=== PATIENT | female | born 1940 | race Caucasian/White ===

== ENCOUNTER 2020-07-11 18:47 | Observation (INO) | payer MEDICARE, SELFPAY ==
[2020-07-11 18:48] VITALS: BP 159/72; PULSE 56; RESP 16; TEMP 36.7; O2SAT 96; BMI 42.1
[2020-07-11 19:03] VITALS: BP 129/60; PULSE 61; RESP 18; O2SAT 93
--- NOTE | 2020-07-11 19:05 | ED.VIS.GEN ---
History of Present Illness Chief Complaint: Edema Narrative: 79-year-old female with history of NC, CHF, CABG reporting worsening leg pain and swelling. She reports that she is unable to ambulate. She states that she noted the symptoms coming on. She is on Lasix 20 mg twice daily and has been taking this normally. He is not having chest pain, palpitations, shortness of breath. She states that her current concern is that she may fall due to her leg pain and leg heaviness. She usually ambulates with a cane and cannot even do this now. She called EMS tonight because she could not get to the hospital. - Past Medical History (1) Difficulty walking Status: Acute Past Medical History - Allergies and Home Meds Allergies/Adverse Reactions: Allergies No Known Allergies Allergy (Verified 07/11/20 18:53) Past Medical History: - - NC, CHF, hypertension Surgical History: - - Four-vessel CABG Lives: Alone Smoking Status: Former smoker Alcohol: None Drugs: None - Family History Maternal Family History: Reports: - - Aneurysms Paternal Family History: Reports: Heart Disease Review of Systems General: Denies: Chills, Fever Eyes: Denies: Visual changes - bilaterally, Diplopia ENT: Denies: Rhinorrhea, Sore throat Cardiovascular: Denies: Chest pain, Palpitations Respiratory: Denies: Dyspnea, Cough, Dyspnea on exertion Genitourinary: Denies: Dysuria, Hematuria, Frequency Musculoskeletal: Reports: Extremity Pain - Lateral lower extremity pain, weakness, swelling Skin: Denies: Rash, Abscess Neurological: Denies: Headache Physical Exam Vital Signs/Narrative: Vital Signs Temp Pulse Resp BP Pulse Ox 07/11/20 19:03 61 18 129/60 H 93 07/11/20 18:48 98.0 F 56 L 16 159/72 H 96 Inital Vital Signs reviewed: Yes General: Obese, No Acute Distress Head: Normocephalic, Atraumatic Eyes: Perrl, EOMI ENT: Moist mucous membranes Cardiovascular: Regular rate, Regular rhythm Respiratory: No distress, CTA bilaterally Abdomen: Soft, Nontender, Nondistended Back: Nontender Extremities: Edema - Lateral lower extremity edema. Negative for: Calf Tenderness Skin: - - Bilateral lower extremity stasis changes Neurological: Alert, Oriented x3 Psychological: Normal affect Diagnostic/Tx/Re-eval - Rhythm Strip Rhythm Strip: Sinus Rhythm Rate: 61 - EKG Initial EKG Interpretation: Sinus Rhythm, Non-Specific ST Changes - Medical Decision Making Patient evaluated for leg swelling and difficulty ambulating. Ultimately her EKG is sinus rhythm without signs of ischemia. Her chest x-ray is negative for heart failure. Her BNP is elevated at 300. She does have lower extremity edema other signs of congestive heart failure. Troponin is negative. Her BUN/creatinine was elevated so she is actually more dry than wet. Given this I do not believe she is in florid heart failure. I did look into [facility] found that she was recently admitted for similar symptoms on overnight. She has a known ejection fraction of 40%. It is unclear whether did an echocardiogram. Patient initially did not admit to this when I saw her. She states she had not been admitted in 18 years. Although I do not believe the patient is in heart failure given her inability to ambulate due to pain and weakness I did speak with the hospitalist who was amenable to observing her overnight and getting her linked up with a new physician and literary writer as she does not have one currently. She was amenable to this plan. Impression: 1. Lower extremity swelling 2. History of CHF 3. Inability to ambulate ED Disposition - Plan for ED Patient: Disposition: Acute Care Hospital [facility]
--- NOTE | 2020-07-11 19:39 | RAD_ITS ---
STUDY: X-RAY CHEST REASON FOR EXAM: Female, 79 years old. Chest pain. TECHNIQUE: Single AP portable view of the chest. COMPARISON: None. FINDINGS: There are chronic appearing bibasilar interstitial fibrotic changes of the lungs. There is no demonstrated pleural abnormality. No visualized focal consolidation. Sternal cerclage wires and vascular clips are present from a prior sternotomy and coronary artery bypass graft procedure (CABG). The heart is mildly enlarged. There is a healed fracture deformity of the right humeral head neck junction. RAD/Chest 1 View (Portable) IMPRESSION: Bibasilar fibrotic changes and mild cardiomegaly Electronically Signed: Adin Haley MD at 20:23 EDT , Service support ,
--- NOTE | 2020-07-11 19:39 | EKG12_ITS ---
Test Reason : GEN ILL Blood Pressure : / mmHG Vent. Rate : 061 BPM Atrial Rate : 061 BPM P-R Int : 172 ms QRS Dur : 080 ms QT Int : 404 ms P-R-T Axes : 047 022 -79 degrees QTc Int : 406 ms Sinus rhythm with marked sinus arrhythmia Nonspecific ST and T wave abnormality Abnormal ECG Confirmed by NOEL HATCH, SACHA ([id number]), communications editor LAW VANEGAS ([id number]) on 07/12/2020 9:25:02 AM Referred By: Hay Leavitt Confirmed By:SACHA COHEN MD
[2020-07-11 19:57] LABS: Basophil# 0.05 X10^3/uL; Basophil% 0.6 % (0-1); Eosinophil# 0.76 X10^3/uL; Eosinophils% 8.5 % (0-5); Hematocrit 38.6 % (37-47); Hemoglobin 11.6 g/dL (12.0-15.0); Lymphocyte % 21.3 % (19-41); Mean Corp Hgb Conc 30.1 g/dL (32-36); Mean Corpuscular Hgb 29.2 pg (27.0-32.0); Mean Corpuscular Volume 97.2 fL (81-99); Mean Platelet Vol. 10.5 fl (6.2-12.0); Monocyte# 1.15 X10^3/uL; Monocyte% 12.9 % (0-10); NRBC Flagged by Analyzer 0 % (0-5); Neutrophil # 4.99 X10^3/uL (2.7-7.7); Platelet Count 282 K/mm3 (150-450); RBC Distribution Width CV 14.6 % (11.6-14.6); RBC Distribution Width SD 52.6 fl (35.1-43.9); Red Blood Count 3.97 M/mm3 (4.2-5.4); White Blood Count 8.9 K/mm3 (4.4-11.0)
[2020-07-11 20:16] LABS: Anion Gap 3 (5-15); BUN 40 mg/dL (7-18); BUN/Creat Ratio 39.2 RATIO (10-20); Calcium,Total 9.7 mg/dL (8.5-10.1); Chloride 109 mmol/L (98-107); Creatinine, Serum 1.02 mg/dL (0.55-1.02); EST Glomerular Filtration Rate 56 mL/min (>60); Est Glom Filt Rate - Afr Amer 67 mL/min (>60); Estimated Creatinine Clearance 43.49 ml/min; Glucose 95 mg/dL (74-106); Sodium Level 145 mmol/L (136-145)
[2020-07-11 20:23] LABS: BNP,B-Type NATRIURETIC PEPTIDE 318.8 pg/mL (0-100)
[2020-07-11 21:05] VITALS: PULSE 69; RESP 20; O2SAT 95
--- NOTE | 2020-07-11 22:23 | PCM.HP.STD ---
Problem List (1) Difficulty walking Status: Acute History of Present Illness Date of Admission: 07/11/20 Chief Complaint: difficulty walking The patient is a 79 year old F with a significant history of NH status post CABG; and systolic heart failure who presents to the emergency department with 5-day history of difficulty in ambulation. Associated with her symptoms is numbness of bilateral legs. She was admitted 4 days ago at [facility] for diagnosis of acute on chronic systolic heart failure. Patient was placed on Lasix drip. Reportedly she spent 2 days at [facility]. She reports minimal physical therapy at [facility]. Reportedly after hospitalization at [facility] she still unable to ambulate. Past Medical History Medical History: Medical History (Last Reviewed 07/12/20 @ 00:[address] Hay Leavitt MD) CHF (congestive heart failure) I50.9 Myocardial infarct I21.9 Allergies No Known Allergies Allergy (Verified 07/11/20 18:53) Home Medications: Ambulatory Orders Medication Instructions Recorded Acetaminophen [Tylenol Extra 500 - 1,000 mg PO Q6H PRN PRN 07/11/20 Strength] Aspirin, Baby 81 mg PO DAILY 07/11/20 Carvedilol [Coreg] 12.5 mg PO BID 07/11/20 Doxycycline 100 mg PO BID 07/11/20 Isosorbide Dinitrate 30 mg PO BID 07/11/20 Lisinopril [Zestril] 5 mg PO DAILY 07/11/20 Multivit-Min/Iron/Folic Acid/K 1 ea PO DAILY 07/11/20 [One Daily Women's Multivitamin] Atco-3 Fatty Acids/Fish Oil [Fish 1 ea PO QODAY 07/11/20 Oil 1,000 mg Capsule] Rosuvastatin Calcium 20 mg PO QHS 07/11/20 Surgical History: coronary bypass surgery Smoking Status: Former smoker Alcohol: None - *Family History Maternal History Items: - - Aneurysms Paternal History Items: Heart Disease Review of Systems Constitutional: Denies: Chills, Fever, Weight Change HEENT: Denies: Head Aches, Sinus Congestion, Sinus Drainage Cardiovascular: Denies: Chest Pain, Palpitations Respiratory: Denies: Cough, Shortness of breath at rest, Sputum production Gastrointestinal: Denies: Abdominal Pain, Nausea, Vomiting Genitourinary: Denies: Dysuria Musculoskeletal: Denies: Joint Pain, Joint Tenderness Skin: Denies: Rash, Wounds Neurological: Reports: Numbness. Denies: Focal weakness, Tingling Psychiatric: Denies: Anxiety, Depression, Homicidal Ideations, Suicidal Ideations Hematologic/ Lymphatic: Denies: Easy Bruising, Easy Bleeding VTE Information - Inpt Only VTE Present on Admission: No VTE Mechan Device Prophylaxis: None VTE Pharm Prophylaxis ordered?: Yes Patient Problems: Active and Suspected Problems (Last Updated 07/11/20 @ 23:[address] Hay Leavitt MD) Difficulty walking (Acute) - Physical Exam Vitals/I&O's: Vital Signs Temp Pulse Resp BP Pulse Ox 98.0 F 69 20 H 129/60 H 95 07/11/20 18:48 07/11/20 21:05 07/11/20 21:05 07/11/20 19:03 07/11/20 21:05 Oxygen Delivery Method Room Air Weight: 122 kg Body Mass Index (BMI) 42.1 General: Alert, Oriented x3, Cooperative HEENT: Atraumatic, PERRLA, EOMI, Normocephalic Neck: Supple, Trachea Midline Lungs: Clear to auscultation, Normal air movement Cardiovascular: Regular rate, Regular Rhythm, Normal S1, Normal S2, No murmurs Abdomen: Bowel Sounds Present, Soft, Non Tender Extremities: No clubbing, No cyanosis Skin: - - Hyperemia bilateral legs; desquamation of left leg. Musculoskeletal: No Tenderness to Palpation of Joints or Extremities Neurological: Cranial nerves II-XII grossly intact Psych/Mental Status: Normal Affect, Appropriate Laboratory Results 07/11/20 19:43: WBC 8.9, RBC 3.97 L, Hgb 11.6 L, Hct 38.6, MCV 97.2, MCH 29.2, MCHC 30.1 L, RDW Std Deviation 52.6 H, RDW Coeff of Estuardo 14.6, Plt Count 282, MPV 10.5, Immature Gran % (Auto) 0.700, Neut % (Auto) 56.0, Lymph % (Auto) 21.3, [place] % (Auto) 12.9 H, Eos % (Auto) 8.5 H, Baso % (Auto) 0.6, Absolute Neuts (auto) 5.0, Absolute Lymphs (auto) 1.90, Nucleated RBC % 0 07/11/20 19:43: Sodium 145, Potassium 5.0, Chloride 109 H, Carbon Dioxide 33.0 H, Anion Gap 3 L, BUN 40 H, Creatinine 1.02, Estim Creat Clear Calc 43.49, Est GFR (MDRD) Af Amer 67, Est GFR (MDRD) Non-Af 56 L, BUN/Creatinine Ratio 39.2 H, Glucose 95, Calcium 9.7, Troponin I < 0.015 07/11/20 19:43: B-Natriuretic Peptide 318.8 H Assessment/Plan All Active Problems (Last Updated 07/11/20 @ 23:[address] Hay Leavitt MD) Difficulty walking (Acute) The patient is a 79 year old F with a significant history of NH status post CABG; and systolic heart failure who presents to the emergency department with 5-day history of difficulty in ambulation. Difficulty walking Etiology is unclear at this point. Will get ultrasound of bilateral lower extremities. Will check vitamin B12 and vitamin D Physical therapy and occupational therapy to work with patient. Congestive heart failure From review of records at [facility] patient last ejection fraction was 35 to 45% On home Coreg and lisinopril continued. CAD status post CABG Aspirin continued Dehydration Creatinine on 07/08/2020 at [facility] was 1.22; BUN was 24. On this presentation her creatinine is 1.02. BUN is 40. Reportedly she has been taking Lasix at home. And at [facility] patient was on Lasix drip. Hold Lasix at this time. Repeat BMP in am. Consider gentle IVF if patient does not improve. History of cellulitis Reportedly she was prescribed doxycycline for 4 weeks for left leg cellulitis. And she has 2 more weeks to complete doxycycline. Patient with hyperemia of bilateral lower extremities and desquamation of left leg; likely venous stasis. Clinical course of her left leg is unclear at this time. Will continue her home doxycycline as ordered Hypertensive On presentation blood pressure was not within goal Coreg, lisinopril and isosorbide dinitrate continued Trend blood pressure and adjust blood pressure medications. DVT prophylaxis Subcutaneous heparin. OBSV E&M: [id number] Initial observation care L3
[2020-07-11 23:02] VITALS: BP 160/67; PULSE 73; RESP 16; TEMP 36.2; O2SAT 95
[2020-07-11 23:40] VITALS: PULSE 73
--- NOTE | 2020-07-11 23:41 | VDLE_ITS ---
Reason For Study: Swelling RIGHT LEFT GSV is normal. GSV is normal. CFV is compressible, spontaneous, phasic, CFV is compressible, spontaneous, phasic, competent and demonstrates normal competent, and demonstrates normal augmentation. augmentation. FV is compressible, spontaneous, phasic, FV is compressible, spontaneous, phasic, competent and demonstrates normal competent and demonstrates normal augmentation. augmentation. POP V is compressible, spontaneous, phasic, POP V is compressible, spontaneous, phasic, competent and demonstrates normal competent and demonstrates normal augmentation. augmentation. T/P Trunk is compressible. T/P Trunk is compressible. PTV is compressible. PTV is compressible. RT PerV is compressible. LT PerV is compressible. Procedure Exam performed portable in patient room. A preliminary report was called and/or faxed to [facility]. Interpretation Summary No evidence for acute deep venous thrombosis bilateral lower extremities with patent and compressible bilateral great saphenous veins. Ordering Physician: Hay Leavitt Referring Physician: Iban Starr Performed By: Leonila Lopez RVT
[2020-07-11 23:51] VITALS: BMI 41.1
[2020-07-12] VITALS (9 sets, daily range): BP systolic 114–145; BP diastolic 38–56; PULSE 62–71; RESP 16–24; TEMP 36.5–36.8; O2SAT 93–97
[2020-07-12] MEDS: Carvedilol 12.5 MG Tablet PO ×3 (00:21→21:45)
[2020-07-12] MEDS: Doxycycline 100 MG CAPSULE PO ×3 (00:21→21:44)
[2020-07-12] MEDS: Isosorbide DN 30 MG Tablet PO ×3 (00:22→21:45)
[2020-07-12] MEDS: Heparin Injection (Vial) 5,000 UNIT/ML VIAL 5000 UNIT SC ×3 (00:22→21:46)
[2020-07-12 00:47] LABS: Vitamin B12 505 pg/mL (211-911); Vitamin D,25 Hydroxy 36.3 ng/mL
[2020-07-12 06:39] LABS: Anion Gap 2 (5-15); BUN 35 mg/dL (7-18); BUN/Creat Ratio 37.2 RATIO (10-20); Calcium,Total 8.7 mg/dL (8.5-10.1); Chloride 108 mmol/L (98-107); Creatinine, Serum 0.94 mg/dL (0.55-1.02); EST Glomerular Filtration Rate 61 mL/min (>60); Est Glom Filt Rate - Afr Amer 74 mL/min (>60); Estimated Creatinine Clearance 47.19 ml/min; Glucose 111 mg/dL (74-106); Potassium 4.4 mmol/L (3.5-5.1); Sodium Level 144 mmol/L (136-145)
--- NOTE | 2020-07-12 08:20 | NURSING ---
Was asked by nursing to assess bilateral lower legs. there is moderate edema noted and some dry skin noted to the left lateral lower leg. no open areas noted. washed legs and feet with soap and water. pat dry. was able to remove most of the dry skin. applied aloe vesta and applied CHRIS wraps from the base of the toes to just below the knees. pt tolerated well.
[2020-07-12] MEDS: Aspirin E.C. 81 MG Tablet PO (08:58)
[2020-07-12] MEDS: Lisinopril 5 MG Tablet PO (08:58)
[2020-07-12] MEDS: Multivitamins,Ther W-Minerals Tablet 1 TABLET PO (09:00)
--- NOTE | 2020-07-12 11:58 | CASEMGMT ---
Addendum entered by Leonila Cota 07/12/20 13:45: SW received message from Guera at [employer] stating pt's daughter works at [employer] and wants pt to go there at discharge. SW placed a call to Guera and updated Gurea that pt has [facility] Medicare and Jean Paul didn't show up on [facility] Medicare's website. Guera states she will talk to business office and then give this worker a call back. Addendum entered by Leonila Cota 07/12/20 12:05: SW did place a call to [facility] in [facility], no beds are available at this time. SW did update pt of this. Original Note: Social Work Assessment Referral Date: 07/12/2020 Date of Assessment: 07/12/2020 Reason for consult: Possible SNF Informant: PT/OT GIANNI updated by PT that pt is assist of two, recommendation is SNF. SW in to speak with pt to complete assessment. SW introduced self and role at [facility]. Pt is alert and orientated x3. Pt states that her daughter lives with her in a two story home with first floor set up. PT states she has no steps to enter as she utilizes the back entrance. Pt states she was previously independent with ADLS, states she still drives. DME include wheelchair, 2 walkers and a cane. PCP is Iban Strar and Pharmacy is [facility]. Substance Abuse Hx: Pt denied Mental Health Hx: Pt denied HHC: None SNF: None SW spoke with pt regarding SNF as PT/OT are recommending SNF. SW provided pt with list of SNF that accept pt's insurance. Pt states she will need to speak with her daughter regarding discharge. Pt states her daughter works today so she will be calling her. SW informed pt that this worker will come back later today to continue discussion of discharge plans. Pt states understanding. Plan: TBD Leonila Cota SHEET METAL DUCT INSTALLER APPRENTICE, AIRLINE TRANSPORT PILOT
--- NOTE | 2020-07-12 12:38 | CHAPLAIN ---
Type of Pastoral Visit _x__ Initial Visit ___ Follow-up Visit ___ On-call Visit ___ General Patient Visit ___ Spiritual Assessment ___ Family Conference ___ Bereavement ___ Rapid Response ___ Code Blue ___ Other (describe below) Pastoral Care Referral From _x__ Patient ___ Family ___ Nurse ___ Physician ___ Tack Maker ___ Electrocardiograph Technician ___ Other (describe below) Sacrament/Intervention _x__ Active listening ___ Anointing ___ Anabaptism ___ Bereavement ___ Communion _x__ Gwen exploration ___ ___ Life review _x__ Prayer ___ Reconciliation ___ Sacrament of Sick _x__ Supportive presence ___ Wedding ___ Other (describe below) Pastoral Comments
--- NOTE | 2020-07-12 14:21 | PCM.PN.HOSP ---
Patient Problems: Active and Suspected Problems (Last Reviewed 07/12/20 @ 00:[address] Hay Leavitt MD) Difficulty walking (Acute) Reason for Visit: debility Subjective: Still with lower extremity edema. Has gradually put on weight over years. Vitals/I&O's: Vital Signs Temp Pulse Resp BP Pulse Ox 36.6 C 62 18 132/40 H 93 07/12/20 13:37 07/12/20 13:37 07/12/20 13:37 07/12/20 13:37 07/12/20 13:37 Oxygen Flow Rate (L/min) 1 Oxygen Delivery Method Room Air Weight: 119.2 kg Body Mass Index (BMI) 41.1 Intake and Output for Last 24 Hours 07/10/20 07/11/20 07/12/20 23:59 23:59 23:59 Intake Total 450 / 450 Output Total 100 / 100 Balance 350 / 350 General: Alert, No apparent distress HEENT: Atraumatic, Normocephalic Oral: Moist Mucosa, No Gingival or Mucosal Lesions/ Ulcerations Neck: No Nodes, Thyroid Normal Size and Texture Lungs: Clear to auscultation, Normal air movement, No rhonchi, No wheeze Cardiovascular: Regular rate, Regular Rhythm, Normal S1, Normal S2, No murmurs Abdomen: Bowel Sounds Present, Soft, Non Tender, Non-Distended, No Hepato-splenomegaly Laboratory Results 07/11/20 19:43: WBC 8.9, RBC 3.97 L, Hgb 11.6 L, Hct 38.6, MCV 97.2, MCH 29.2, MCHC 30.1 L, RDW Std Deviation 52.6 H, RDW Coeff of Estuardo 14.6, Plt Count 282, MPV 10.5, Immature Gran % (Auto) 0.700, Neut % (Auto) 56.0, Lymph % (Auto) 21.3, [place] % (Auto) 12.9 H, Eos % (Auto) 8.5 H, Baso % (Auto) 0.6, Absolute Neuts (auto) 5.0, Absolute Lymphs (auto) 1.90, Nucleated RBC % 0 07/11/20 19:43: Sodium 145, Potassium 5.0, Chloride 109 H, Carbon Dioxide 33.0 H, Anion Gap 3 L, BUN 40 H, Creatinine 1.02, Estim Creat Clear Calc 43.49, Est GFR (MDRD) Af Amer 67, Est GFR (MDRD) Non-Af 56 L, BUN/Creatinine Ratio 39.2 H, Glucose 95, Calcium 9.7, Troponin I < 0.015 07/11/20 19:43: B-Natriuretic Peptide 318.8 H 07/11/20 19:43: Vitamin B12 505, Vitamin D 25-Hydroxy 36.3 07/12/20 05:44: Sodium 144, Potassium 4.4, Chloride 108 H, Carbon Dioxide 34.0 H, Anion Gap 2 L, BUN 35 H, Creatinine 0.94, Estim Creat Clear Calc 47.19, Est GFR (MDRD) Af Amer 74, Est GFR (MDRD) Non-Af 61, BUN/Creatinine Ratio 37.2 H, Glucose 111 H, Calcium 8.7 Current Medications Acetaminophen (Tylenol) 650 mg PO Q6H PRN PRN PRN Reason: Pain Score 1-10/Temp > 100.7 F Aspirin (Ecotrin) 81 mg PO DAILY@0800 [facility] Last Admin: 07/12/20 08:58 Dose: 81 mg Documented by: Atorvastatin Calcium (Lipitor) 40 mg PO QHS [facility] Carvedilol (Coreg) 12.5 mg PO BID [facility] Last Admin: 07/12/20 10:57 Dose: 12.5 mg Documented by: Doxycycline Monohydrate (Doxycycline) 100 mg PO BID [facility] Last Admin: 07/12/20 10:57 Dose: 100 mg Documented by: Ergocalciferol (Vitamin D) 50,000 unit PO Q7D@1000 [facility] Stop: 08/30/20 10:01 Last Admin: 07/12/20 10:57 Dose: 50,000 unit Documented by: Heparin Sodium (Porcine) (Heparin Na) 5,000 unit SC Q12 [facility] Last Admin: 07/12/20 10:57 Dose: 5,000 unit Documented by: Hydralazine HCl (Apresoline Iv) 5 mg IV Q4H PRN PRN PRN Reason: SBP > 160 Isosorbide Dinitrate (Isordil) 30 mg PO BID [facility] Last Admin: 07/12/20 13:33 Dose: 30 mg Documented by: Lisinopril (Zestril) 5 mg PO DAILY [facility] Last Admin: 07/12/20 08:58 Dose: 5 mg Documented by: Multivitamins/Minerals (Multivitamin With Minerals (Bkc)) 1 tablet PO DAILY@0800 [facility] Last Admin: 07/12/20 09:00 Dose: 1 tablet Documented by: Ondansetron HCl (Zofran) 4 mg IV Q8H PRN PRN PRN Reason: NAUSEA/VOMITING Sodium Chloride () 10 - 40 ml IV UD PRN PRN Reason: SALINE FLUSH STROKE Vital Signs/Narrative: Vital Signs Temp Pulse Resp BP Pulse Ox 07/12/20 13:37 36.6 C 62 18 132/40 H 93 Medical Necessity - Tobacco Use Smoking Status: Former smoker Tobacco Use: Cigarettes Assessment/Plan All Active Problems (Last Reviewed 07/12/20 @ 00:[address] Hay Leavitt MD) Difficulty walking (Acute) 1. debility PT OT eval and treat SNF recommended 2. LE edema add furosemide 3. VTE prophylaxis: SQ heparin OBSV E&M: 11106 Initial observation care L2
--- NOTE | 2020-07-12 15:24 | CASEMGMT ---
Social Work Note SW received call from Guera at [employer] stating [facility] to fax referral [facility]. SW in to speak with pt. Pt confirms that her daughter works at [employer] and is agreeable to referral being sent. GIANNI informed pt that [facility] is not in network with pt's insurance but [facility] is trying a one time contract but can't guarantee that the one time contract will get approved. Pt still agreeable to referral being sent to [facility]. GIANNI faxed referral to Guera at [facility]. Plan: [facility] pending acceptance and once time contract Leonila Cota BUDGET DIRECTOR, MARKET RESEARCH ASSISTANT
[2020-07-12] MEDS: Furosemide 40 MG Tablet PO (15:57)
[2020-07-12] MEDS: Bisacodyl 5 MG Tablet PO (18:04)
[2020-07-12 20:59] LABS: Probe Check PASS; Specimen Processing Control PASS
[2020-07-12] MEDS: Atorvastatin Calcium 40 MG Tablet PO (21:45)
[2020-07-13 03:43] VITALS: BP 132/61; PULSE 61; RESP 18; TEMP 36.5; O2SAT 92
[2020-07-13 03:56] VITALS: RESP 18; O2SAT 92
[2020-07-13 08:14] VITALS: BP 143/53; PULSE 64; RESP 18; TEMP 36.5; O2SAT 95
[2020-07-13] MEDS: Multivitamins,Ther W-Minerals Tablet 1 TABLET PO (08:16)
[2020-07-13] MEDS: Aspirin E.C. 81 MG Tablet PO (08:16)
--- NOTE | 2020-07-13 09:45 | CASEMGMT ---
EDY CM in to discuss PERRY form with patient. PERRY for explained to patient. Patient voiced understanding and signed form. Original filed in chart, copy of signed PERRY form provided to patient. Patient had no further questions or concerns.
--- NOTE | 2020-07-13 09:56 | CASEMGMT ---
Addendum entered by Leonila Cota 07/13/20 15:19: GIANNI received call from [facility] at [facility] stating [facility] is still saying they will not approve a one time contract for [facility]. Addendum entered by Leonila Cota 07/13/20 15:08: GIANNI received message from Guera at [facility] stating their it network administrator is calling [facility] again to inquire about a one time contract. Guera to call this worker back. Addendum entered by Leonila Cota 07/13/20 14:41: GIANNI received [facility] from [facility] SW in to speak with pt. SW updated pt that [facility] will not do One Time Contract with [facility] so pt will need to pick a New SNF. GIANNI explained the only SNF in [place] that will take pt's insurance is [facility] and then the other facilities are in [place]. Pt stated I am not going to [place]. GIANNI explained then if she wants to stay in [facility] then the only other option is [facility]. Pt agreeable to referral being sent to [facility]. GIANNI placed a call to [facility] and spoke with Ines in admissions. GIANNI provided referral. GIANNI also placed a call to [facility] in [facility]. [facility] confirm no beds until Saturday. Plan: SNF pending acceptance and pre-cert. Addendum entered by Leonila Cota 07/13/20 13:21: GIANNI received call from Guera at [facility] stating pre-cert/One time contract is still pending. Guera states she did reach out to [facility] and asked for request to be expedited as pt is medically ready for discharge. Guera to call this worker back once decision has been made for pre-cert/one time contract. Original Note: Social Work Note GIANNI placed a call to Guera at [facility] and left message inquiring about one time contract with [facility]. GIANNI informed Guera that pt is medically ready for discharge once pre-cert/one time contract is obtained. GIANNI waiting for call back. Plan: [facility] pending pre-cert/one time contract Leonila Cota CLAIM CLINICIAN, VET[employer]IAN [employer]IMAL CARE
[2020-07-13] MEDS: Doxycycline 100 MG CAPSULE PO ×2 (10:03→22:26)
[2020-07-13] MEDS: Menthol/Lanolin/Calamine/Znox 113 GM Tube 1 APPLIC TOPICAL ×2 (10:03→22:25)
[2020-07-13] MEDS: Furosemide 40 MG Tablet PO (10:04)
[2020-07-13] MEDS: Heparin Injection (Vial) 5,000 UNIT/ML VIAL 5000 UNIT SC ×2 (10:04→22:27)
[2020-07-13] MEDS: Carvedilol 12.5 MG Tablet PO ×2 (10:04→22:27)
[2020-07-13] MEDS: Isosorbide DN 30 MG Tablet PO ×2 (10:04→22:26)
[2020-07-13] MEDS: Nystatin Ointment 1 APPLIC TOPICAL ×2 (10:05→22:26)
[2020-07-13] MEDS: Lisinopril 5 MG Tablet PO (10:05)
[2020-07-13 12:56] VITALS: BP 101/47; PULSE 58; RESP 18; TEMP 36.4; O2SAT 94
[2020-07-13] MEDS: Acetaminophen 325 MG Tablet 650 MG PO ×2 (13:00→22:31)
--- NOTE | 2020-07-13 14:08 | PN_ITS ---
Patient Problems: Active and Suspected Problems (Last Reviewed 07/12/20 @ 00:[address] Hay Leavitt MD) Difficulty walking (Acute) Subjective: Had a BM yesterday and abdomen feels better. Vitals/I&O's: Vital Signs Temp Pulse Resp BP Pulse Ox 36.4 C L 58 L 18 101/47 L 94 07/13/20 12:56 07/13/20 12:56 07/13/20 12:56 07/13/20 12:56 07/13/20 12:56 Oxygen Flow Rate (L/min) 1 Oxygen Delivery Method Room Air Weight: 118.6 kg Body Mass Index (BMI) 41.1 Intake and Output for Last 24 Hours 07/11/20 07/12/20 07/13/20 23:59 23:59 23:59 Intake Total 900 / 1300 1250 / 1250 Output Total 550 / 850 300 / 300 Balance 350 / 450 950 / 950 General: Alert, No apparent distress HEENT: Atraumatic, Normocephalic Neck: No Nodes, Thyroid Normal Size and Texture Lungs: Clear to auscultation, Normal air movement, No rhonchi Cardiovascular: Regular rate, Regular Rhythm, Normal S1, Normal S2, No murmurs Abdomen: Bowel Sounds Present, Soft, Non Tender, Non-Distended, No Hepato- splenomegaly Extremities: No Calf Tenderness, Edema Skin: No rashes, No breakdown Laboratory Results 07/12/20 19:40: COVID-19 (ESTEFANIA) Negative Current Medications Acetaminophen (Tylenol) 650 mg PO Q6H PRN PRN PRN Reason: Pain Score 1-10/Temp > 100.7 F Last Admin: 07/13/20 13:00 Dose: 650 mg Documented by: Aspirin (Ecotrin) 81 mg PO DAILY@0800 [facility] Last Admin: 07/13/20 08:16 Dose: 81 mg Documented by: Atorvastatin Calcium (Lipitor) 40 mg PO QHS [facility] Last Admin: 07/12/20 21:45 Dose: 40 mg Documented by: Bisacodyl (Dulcolax) 5 mg PO DAILY PRN PRN Reason: Constipation Last Admin: 07/12/20 18:04 Dose: 5 mg Documented by: Calamine/Phenol (Calmoseptine Ointment) 1 applic TOPICAL BID [facility]; Protocol Last Admin: 07/13/20 10:03 Dose: 1 applicatio Documented by: Carvedilol (Coreg) 12.5 mg PO BID [facility] Last Admin: 07/13/20 10:04 Dose: 12.5 mg Documented by: Doxycycline Monohydrate (Doxycycline) 100 mg PO BID [facility] Last Admin: 07/13/20 10:03 Dose: 100 mg Documented by: Ergocalciferol (Vitamin D) 50,000 unit PO Q7D@1000 [facility] Stop: 08/30/20 10:01 Last Admin: 07/12/20 10:57 Dose: 50,000 unit Documented by: Furosemide (Lasix) 40 mg PO DAILY [facility] Last Admin: 07/13/20 10:04 Dose: 40 mg Documented by: Heparin Sodium (Porcine) (Heparin Na) 5,000 unit SC Q12 [facility] Last Admin: 07/13/20 10:04 Dose: 5,000 unit Documented by: Hydralazine HCl (Apresoline Iv) 5 mg IV Q4H PRN PRN PRN Reason: SBP > 160 Isosorbide Dinitrate (Isordil) 30 mg PO BID [facility] Last Admin: 07/13/20 10:04 Dose: 30 mg Documented by: Lisinopril (Zestril) 5 mg PO DAILY [facility] Last Admin: 07/13/20 10:05 Dose: 5 mg Documented by: Multivitamins/Minerals (Multivitamin With Minerals (Bkc)) 1 tablet PO DAILY@0800 [facility] Last Admin: 07/13/20 08:16 Dose: 1 tablet Documented by: Nystatin (Mycostatin) 1 applic TOPICAL BID [facility]; Protocol Last Admin: 07/13/20 10:05 Dose: 1 applicatio Documented by: Ondansetron HCl (Zofran) 4 mg IV Q8H PRN PRN PRN Reason: NAUSEA/VOMITING Sodium Chloride () 10 - 40 ml IV UD PRN PRN Reason: SALINE FLUSH STROKE Vital Signs/Narrative: Vital Signs Temp Pulse Resp BP Pulse Ox 07/13/20 12:56 36.4 C L 58 L 18 101/47 L 94 Medical Necessity - Tobacco Use Smoking Status: Former smoker Tobacco Use: Cigarettes Assessment/Plan All Active Problems (Last Reviewed 07/12/20 @ 00:[address] Hay Leavitt MD) Difficulty walking (Acute) 1. debility * PT OT eval and treat * SNF recommended * awaiting on precertification. 2. LE edema * add furosemide 3. VTE prophylaxis: SQ heparin Inpatient E&M: 28983 Subs Hosp L2
[2020-07-13 17:45] VITALS: BP 125/44; PULSE 66; RESP 18; TEMP 36.7; O2SAT 94
[2020-07-13 20:12] VITALS: BP 142/58; PULSE 64; RESP 17; TEMP 36.6; O2SAT 94
[2020-07-13] MEDS: Atorvastatin Calcium 40 MG Tablet PO (22:26)
[2020-07-14 02:38] VITALS: BP 119/62; PULSE 72; RESP 18; TEMP 36.6; O2SAT 94
--- NOTE | 2020-07-14 08:39 | PCM.PN.HOSP ---
Patient Problems: Active and Suspected Problems (Last Reviewed 07/12/20 @ 00:[address] Hay Leavitt MD) Difficulty walking (Acute) Reason for Visit: debility Subjective: Still with pain and swelling legs. Unable to go to [place] for rehab. Vitals/I&O's: Vital Signs Temp Pulse Resp BP Pulse Ox 36.6 C 72 18 119/62 94 07/14/20 02:38 07/14/20 02:38 07/14/20 02:38 07/14/20 02:38 07/14/20 02:38 Oxygen Flow Rate (L/min) 1 Oxygen Delivery Method Room Air Weight: 119.3 kg Body Mass Index (BMI) 41.1 Intake and Output for Last 24 Hours 07/12/20 07/13/20 07/14/20 23:59 23:59 23:59 Intake Total 900 / 1300 1775 / 1775 300 / 300 Output Total 550 / 850 300 / 300 Balance 350 / 450 1475 / 1475 300 / 300 General: Alert, No apparent distress HEENT: Atraumatic, Normocephalic Oral: Moist Mucosa, No Gingival or Mucosal Lesions/ Ulcerations Neck: No Nodes, Thyroid Normal Size and Texture Lungs: Clear to auscultation, Normal air movement, No rhonchi, No wheeze, No rales Cardiovascular: Regular rate, Regular Rhythm, Normal S1, Normal S2, No murmurs Abdomen: Bowel Sounds Present, Soft, Non Tender, Non-Distended, No Hepato-splenomegaly Extremities: No Calf Tenderness, Edema - improving Skin: - - wrinkling of skin in feet. CHRIS wraps on LE--did not remove. Current Medications Acetaminophen (Tylenol) 650 mg PO Q6H PRN PRN PRN Reason: Pain Score 1-10/Temp > 100.7 F Last Admin: 07/13/20 22:31 Dose: 650 mg Documented by: Aspirin (Ecotrin) 81 mg PO DAILY@0800 [facility] Last Admin: 07/13/20 08:16 Dose: 81 mg Documented by: Atorvastatin Calcium (Lipitor) 40 mg PO QHS [facility] Last Admin: 07/13/20 22:26 Dose: 40 mg Documented by: Bisacodyl (Dulcolax) 5 mg PO DAILY PRN PRN Reason: Constipation Last Admin: 07/12/20 18:04 Dose: 5 mg Documented by: Calamine/Phenol (Calmoseptine Ointment) 1 applic TOPICAL BID [facility]; Protocol Last Admin: 07/13/20 22:25 Dose: 1 applicatio Documented by: Carvedilol (Coreg) 12.5 mg PO BID [facility] Last Admin: 07/13/20 22:27 Dose: 12.5 mg Documented by: Doxycycline Monohydrate (Doxycycline) 100 mg PO BID [facility] Last Admin: 07/13/20 22:26 Dose: 100 mg Documented by: Ergocalciferol (Vitamin D) 50,000 unit PO Q7D@1000 [facility] Stop: 08/30/20 10:01 Last Admin: 07/12/20 10:57 Dose: 50,000 unit Documented by: Furosemide (Lasix) 40 mg PO DAILY [facility] Last Admin: 07/13/20 10:04 Dose: 40 mg Documented by: Heparin Sodium (Porcine) (Heparin Na) 5,000 unit SC Q12 [facility] Last Admin: 07/13/20 22:27 Dose: 5,000 unit Documented by: Hydralazine HCl (Apresoline Iv) 5 mg IV Q4H PRN PRN PRN Reason: SBP > 160 Isosorbide Dinitrate (Isordil) 30 mg PO BID [facility] Last Admin: 07/13/20 22:26 Dose: 30 mg Documented by: Lisinopril (Zestril) 5 mg PO DAILY [facility] Last Admin: 07/13/20 10:05 Dose: 5 mg Documented by: Multivitamins/Minerals (Multivitamin With Minerals (Bkc)) 1 tablet PO DAILY@0800 [facility] Last Admin: 07/13/20 08:16 Dose: 1 tablet Documented by: Nystatin (Mycostatin) 1 applic TOPICAL BID [facility]; Protocol Last Admin: 07/13/20 22:26 Dose: 1 applicatio Documented by: Ondansetron HCl (Zofran) 4 mg IV Q8H PRN PRN PRN Reason: NAUSEA/VOMITING Sodium Chloride () 10 - 40 ml IV UD PRN PRN Reason: SALINE FLUSH Medical Necessity - Tobacco Use Smoking Status: Former smoker Tobacco Use: Cigarettes Assessment/Plan All Active Problems (Last Reviewed 07/12/20 @ 00:[address] Hay Leavitt MD) Difficulty walking (Acute) 1. debility PT OT eval and treat SNF recommended awaiting on precertification. [facility] decline by [facility]. Patient wants to go somewhere in [place]. 2. LE edema add furosemide 3. VTE prophylaxis: SQ heparin Inpatient E&M: 47801 Subs Hosp L2
--- NOTE | 2020-07-14 08:45 | PCM.TXEXTCAR ---
- Diet 07/11/20 23:41 Diet: Cardiac - Heart Healthy Food consistency:: Regular Liquid Consistency:: Regular/Thin Dietary Modifications:: Sodium Restricted - Routine Orders/Code Status Code Status: Full Code - Therapies Weight Bearing: Full weight bearing Physical Therapy: Eval and Treat Occupational Therapy: Eval and Treat - Allergies/Procedures Done in Hospital Allergies/Adverse Reactions: Allergies No Known Allergies Allergy (Verified 07/11/20 18:53) Procedures: None - Type of Care/Length of Stay Estimated LOS: Convalescent Care Less Than 30 days Type of Care Needed: Skilled Rehab Potential: Fair Prognosis: Good - Additional Orders/Day of Discharge Day of Discharge: 07/14/20 - Dietary and Speech Recommendations Dietitian Recommendations/Changes: Will add sodium-resticted to current Cardiac diet as ordered; restrict fluids as medically indicated. Will d/c ensure enlive w/ medpass as BMI 41.2 and intake good at meals. - Follow Up Care Primary Care Physician: Iban Starr DO [Primary Care Provider] - Within 2 Weeks
[2020-07-14] MEDS: Doxycycline 100 MG CAPSULE PO (08:57)
[2020-07-14] MEDS: Lisinopril 5 MG Tablet PO (08:57)
[2020-07-14] MEDS: Aspirin E.C. 81 MG Tablet PO (08:57)
[2020-07-14] MEDS: Multivitamins,Ther W-Minerals Tablet 1 TABLET PO (08:57)
[2020-07-14] MEDS: Isosorbide DN 30 MG Tablet PO (08:57)
[2020-07-14] MEDS: Nystatin Ointment 1 APPLIC TOPICAL (08:58)
[2020-07-14] MEDS: Furosemide 40 MG Tablet PO (08:58)
[2020-07-14] MEDS: Menthol/Lanolin/Calamine/Znox 113 GM Tube 1 APPLIC TOPICAL (08:58)
[2020-07-14] MEDS: Heparin Injection (Vial) 5,000 UNIT/ML VIAL 5000 UNIT SC (08:58)
[2020-07-14] MEDS: Carvedilol 12.5 MG Tablet PO (08:58)
[2020-07-14 09:05] VITALS: BP 148/98; PULSE 56; RESP 16; TEMP 36.6; O2SAT 93
--- NOTE | 2020-07-14 09:07 | CASEMGMT ---
Addendum entered by Leonila Cota 07/14/20 13:05: GIANNI received message from Chelsey in TCU stating pt was approved and can discharge to TCU today. SW updated pt. Pt states understanding. Physician updated. GIANNI placed original transfer to extended care facility, signed medication list and any scripts in SNF folder and copy on pt's chart. Plan: TCU today Original Note: Social Work Note GIANNI spoke with Chelsey in TCU. TCU now has a bed available for pt today pending pre-cert. SW in to speak with pt. GIANNI updated pt that TCU now has a bed available if she prefers to stay at [facility]CU instead of [facility]. Pt confirms that she prefers to stay at [facility] instead of [facility]. GIANNI placed a call to [facility] and spoke with Freya in admissions. GIANNI asked Freya to disregard referral. Plan: TCU pending pre-cert Leonila Cota QUENCHER OPERATOR, MACHINE CEMENTER
[2020-07-14] MEDS: Acetaminophen 325 MG Tablet 650 MG PO (09:10)
--- NOTE | 2020-07-14 13:26 | PCM.DC.SUM ---
Discharge Date and Diagnosis - Problem List Patient Problems: Active and Suspected Problems (Last Reviewed 07/12/20 @ 00:[address] Hay Leavitt MD) Difficulty walking (Acute) Date of Admission: 07/11/20 Date of Discharge: 07/14/20 - Primary Discharge Diagnosis Acute Problems: Active Problems (Last Reviewed 07/12/20 @ 00:[address] Hay Leavitt MD) Difficulty walking (Acute) Hospital Course and Treatment Operations: None Procedures: None Summary of Care Provided: The patient is a 79 year old F with weakness and lower extremity edema. Patient in no acute issues but was initiated on furosemide. Patient seen by therapy and fpc facility was recommended. Patient's initial request was to go to [place], as her daughter works there, however it was declined by the insurance. Patient be going to the transitional care unit in stable condition. [] Patient Problems: Active and Suspected Problems (Last Reviewed 07/12/20 @ 00:[address] Hay Leavitt MD) Difficulty walking (Acute) - Physical Exam Vitals/I&O's: Vital Signs Temp Pulse Resp BP Pulse Ox 36.6 C 56 L 16 148/98 H 93 07/14/20 09:05 07/14/20 09:05 07/14/20 09:05 07/14/20 09:05 07/14/20 09:05 Oxygen Flow Rate (L/min) 1 Oxygen Delivery Method Room Air Weight: 119.3 kg Body Mass Index (BMI) 41.1 Intake and Output for Last 24 Hours 07/12/20 07/13/20 07/14/20 23:59 23:59 23:59 Intake Total 900 / 1300 1775 / 1775 600 / 600 Output Total 550 / 850 300 / 300 Balance 350 / 450 1475 / 1475 600 / 600 Current Medications Acetaminophen (Tylenol) 650 mg PO Q6H PRN PRN PRN Reason: Pain Score 1-10/Temp > 100.7 F Last Admin: 07/14/20 09:10 Dose: 650 mg Documented by: Aspirin (Ecotrin) 81 mg PO DAILY@0800 [facility] Last Admin: 07/14/20 08:57 Dose: 81 mg Documented by: Atorvastatin Calcium (Lipitor) 40 mg PO QHS [facility] Last Admin: 07/13/20 22:26 Dose: 40 mg Documented by: Bisacodyl (Dulcolax) 5 mg PO DAILY PRN PRN Reason: Constipation Last Admin: 07/12/20 18:04 Dose: 5 mg Documented by: Calamine/Phenol (Calmoseptine Ointment) 1 applic TOPICAL BID [facility]; Protocol Last Admin: 07/14/20 08:58 Dose: 1 applicatio Documented by: Carvedilol (Coreg) 12.5 mg PO BID [facility] Last Admin: 07/14/20 08:58 Dose: 12.5 mg Documented by: Doxycycline Monohydrate (Doxycycline) 100 mg PO BID [facility] Last Admin: 07/14/20 08:57 Dose: 100 mg Documented by: Ergocalciferol (Vitamin D) 50,000 unit PO Q7D@1000 [facility] Stop: 08/30/20 10:01 Last Admin: 07/12/20 10:57 Dose: 50,000 unit Documented by: Furosemide (Lasix) 40 mg PO DAILY [facility] Last Admin: 07/14/20 08:58 Dose: 40 mg Documented by: Heparin Sodium (Porcine) (Heparin Na) 5,000 unit SC Q12 [facility] Last Admin: 07/14/20 08:58 Dose: 5,000 unit Documented by: Hydralazine HCl (Apresoline Iv) 5 mg IV Q4H PRN PRN PRN Reason: SBP > 160 Isosorbide Dinitrate (Isordil) 30 mg PO BID [facility] Last Admin: 07/14/20 08:57 Dose: 30 mg Documented by: Lisinopril (Zestril) 5 mg PO DAILY [facility] Last Admin: 07/14/20 08:57 Dose: 5 mg Documented by: Multivitamins/Minerals (Multivitamin With Minerals (Bkc)) 1 tablet PO DAILY@0800 [facility] Last Admin: 07/14/20 08:57 Dose: 1 tablet Documented by: Nystatin (Mycostatin) 1 applic TOPICAL BID [facility]; Protocol Last Admin: 07/14/20 08:58 Dose: 1 applicatio Documented by: Ondansetron HCl (Zofran) 4 mg IV Q8H PRN PRN PRN Reason: NAUSEA/VOMITING Sodium Chloride () 10 - 40 ml IV UD PRN PRN Reason: SALINE FLUSH Discharge Diet: Low fat/ Low Cholesterol Home Medications: Medications to take at Discharge Acetaminophen [Tylenol] 500 - 1,000 mg PO Q6H PRN PRN 07/11/20 Aspirin, Baby 81 mg PO DAILY 07/11/20 Carvedilol [Coreg] 12.5 mg PO BID 07/11/20 Isosorbide Dinitrate 30 mg PO BID 07/11/20 Lisinopril [Zestril] 5 mg PO DAILY 07/11/20 Multivit-Min/Iron/Folic Acid/K [One Daily Women's Multivitamin] 1 ea PO DAILY 07/11/20 [place]-3 Fatty Acids/Fish Oil [Fish Oil 1,000 mg Capsule] 1 ea PO QODAY 07/11/20 Rosuvastatin Calcium 20 mg PO QHS 07/11/20 Bisacodyl [Dulcolax] 5 mg PO DAILY PRN tab 07/14/20 Ergocalciferol [Vitamin D] 50,000 unit PO Q7D@1000 #7 cap 07/14/20 Furosemide [Lasix] 40 mg PO DAILY tab 07/14/20 Nystatin [Mycostatin] 1 applic TOPICAL BID tube 07/14/20 Potassium Chloride [K-Dur] 10 meq PO DAILY #30 tab 07/14/20 Following Prescriptions Were Given to Patient: Potassium Chloride [K-Dur] 10 meq PO DAILY #30 tab Primary Care Physician: Iban Starr DO [Primary Care Provider] - Within 2 Weeks Disposition: Retirement facility Minutes spent on discharge:: 32 Patient Condition:: Fair Medical Necessity - Tobacco Use Smoking Status: Former smoker Tobacco Use: Cigarettes Meaningful Use Info Meaningful Use Diagnoses (Choose all that apply): None applicable Inpatient E&M: 23771 Disch Hosp
[2020-07-14 14:40] VITALS: BP 135/48; PULSE 53; RESP 18; TEMP 36.3; O2SAT 96
--- NOTE | 2020-07-14 14:53 | NURSING ---
report called to EDY Keen on TCU for discharge transfer.
--- NOTE | 2020-07-14 15:15 | PHA.DC.MR ---
Pharmacy Service has performed discharge medication reconciliation for this patient upon transfer to [facility]. The patient's discharge medication list was reviewed for discrepancies and discrepancies were resolved. Home Medications Acetaminophen [Tylenol] 500 - 1,000 mg PO Q6H PRN PRN 07/11/20 Aspirin, Baby 81 mg PO DAILY 07/11/20 Carvedilol [Coreg] 12.5 mg PO BID 07/11/20 Isosorbide Dinitrate 30 mg PO BID 07/11/20 Lisinopril [Zestril] 5 mg PO DAILY 07/11/20 Multivit-Min/Iron/Folic Acid/K [One Daily Women's Multivitamin] 1 ea PO DAILY 07/11/20 [place]-3 Fatty Acids/Fish Oil [Fish Oil 1,000 mg Capsule] 1 ea PO QODAY 07/11/20 Rosuvastatin Calcium 20 mg PO QHS 07/11/20 Bisacodyl [Dulcolax] 5 mg PO DAILY PRN tab 07/14/20 Ergocalciferol [Vitamin D] 50,000 unit PO Q7D@1000 #7 cap 07/14/20 Furosemide [Lasix] 40 mg PO DAILY tab 07/14/20 Nystatin [Mycostatin] 1 applic TOPICAL BID tube 07/14/20 Potassium Chloride [K-Dur] 10 meq PO DAILY #30 tab 07/14/20
== END 2020-07-14 15:15 | disposition skilled nursing facility (03) ==
LOC: ED 22:19 → MS3 23:08
PROVIDERS: Admitting Provider Hospitalist; Emergency Provider Student in an Organized Health Care Education/Training Program; PCP Preventive Medicine Occupational Medicine; Referring Provider Hospitalist
DX: R26.2 Difficulty in walking, not elsewhere classified (principal); R60.0 Localized edema; R20.0 Anesthesia of skin; I25.10 Atherosclerotic heart disease of native coronary artery without angina pectoris; E86.0 Dehydration; L03.116 Cellulitis of left lower limb; I25.2 Old myocardial infarction; I11.0 Hypertensive heart disease with heart failure; I50.22 Chronic systolic (congestive) heart failure; Z79.899 Other long term (current) drug therapy; Z79.82 Long term (current) use of aspirin; Z87.891 Personal history of nicotine dependence; Z95.1 Presence of aortocoronary bypass graft
CPT/HCPCS: 36415; 71045; 80048; 82306; 82607; 83880; 84484; 85025; 87635; 93005; 93970; 94799; 96372; 97110; 97116; 97163; 97166; 97530; 97535; 97802; 99218; 99285; A4216; G0378; U0003

== ENCOUNTER 2020-07-14 15:19 | Inpatient (IN) | payer MEDICARE, SELFPAY ==
[2020-07-11 23:51] VITALS: BMI 41.1
[2020-07-14 15:31] VITALS: PULSE 64; RESP 18; O2SAT 94; BMI 41.1
[2020-07-14 15:35] VITALS: BP 141/57; PULSE 52; RESP 18; TEMP 36.2; O2SAT 96
[2020-07-14 15:36] VITALS: BMI 41.1
--- NOTE | 2020-07-14 16:30 | CASEMGMT ---
Social Work Discussed code status with pt. Pt confirmed full code. MOLST form completed and placed in chart. Kasia John MSW TREATING INSPECTOR
[2020-07-14] MEDS: Isosorbide DN 30 MG Tablet PO (17:51)
[2020-07-14] MEDS: Carvedilol 12.5 MG Tablet PO (17:51)
--- NOTE | 2020-07-14 20:52 | PCM.HP.STD ---
Problem List (1) Debility Status: Acute (2) Gait difficulty Status: Acute (3) Edema Status: Chronic (4) Venous stasis dermatitis Status: Chronic (5) Lumbar spinal stenosis Status: Acute (6) Lumbar radiculopathy Status: Acute (7) Coronary artery disease Status: Chronic (8) Chronic systolic (congestive) heart failure Status: Chronic (9) Hyperlipidemia Status: Chronic History of Present Illness Date of Admission: 07/14/20 Chief Complaint: Here for rehabilitation, strengthening, prior to discharge home with family, daughter lives with her. 07/11/2020 The patient is a 79 year old Female with below past medical history presented to [facility] Emergency Department with lower extremity edema. Recent [facility] Hospitalization for acute on chronic systolic congestive heart failure, on Lasix drip. Recent treatment for cellulitis of bilateral lower extremity, on Doxycycline for 4 weeks. Worsening leg pain, edema. Unable to walk, on Lasix 20MG twice daily chronically. 1 week ago, had cataract surgery, was lying flat on table. Afterwards, she noted numbness, tingling pain in bilateral legs. Difficult to walk, fear of falling. Unable to walk with cane. BNP 300, but doubt congestive heart failure. 07/11/2020 Admit to Hospital. Bilateral leg numbness. PT/OT. 07/11/2020 Doppler ultrasound of bilateral lower extremities NEGATIVE DVT. 07/12/2020 PT/OT recommended Nursing Home Facility. Lasix added for edema. 07/14/2020 Admit to TCU with debility, here for rehabilitation, strengthening, prior to discharge home with family, daughter lives with her. Past Medical History Past Medical History (Chronic Problems): Chronic Problems (Last Reviewed 07/12/20 @ 00:[address] Hay Leavitt MD) Edema (Chronic) Venous stasis dermatitis (Chronic) Coronary artery disease (Chronic) Chronic systolic (congestive) heart failure (Chronic) Hyperlipidemia (Chronic) Medical History: Medical History (Last Reviewed 07/12/20 @ 00:[address] Hay Leavitt MD) CHF (congestive heart failure) I50.9 Myocardial infarct I21.9 Allergies No Known Allergies Allergy (Verified 07/14/20 16:03) Home Medications: Ambulatory Orders Medication Instructions Recorded Acetaminophen [Tylenol] 500 - 1,000 mg PO Q6H PRN PRN 07/11/20 Aspirin, Baby 81 mg PO DAILY 07/11/20 Carvedilol [Coreg] 12.5 mg PO BID 07/11/20 Isosorbide Dinitrate 30 mg PO BID 07/11/20 Lisinopril [Zestril] 5 mg PO DAILY 07/11/20 Multivit-Min/Iron/Folic Acid/K 1 ea PO DAILY 07/11/20 [One Daily Women's Multivitamin] Branscomb-3 Fatty Acids/Fish Oil [Fish 1 ea PO QODAY 07/11/20 Oil 1,000 mg Capsule] Rosuvastatin Calcium 20 mg PO QHS 07/11/20 Bisacodyl [Dulcolax] 5 mg PO DAILY PRN tab 07/14/20 Ergocalciferol [Vitamin D] 50,000 unit PO Q7D@1000 07/14/20 Furosemide [Lasix] 40 mg PO DAILY 07/14/20 Nystatin [Mycostatin] 1 applic TOPICAL BID 07/14/20 Potassium Chloride [K-Dur] 10 meq PO DAILY 07/14/20 Surgical History: coronary bypass surgery - x 4., - Psychiatric History: No pertinent psych hx 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 Smoking Status: Former smoker Tobacco Use: Non-smoker Alcohol: None Drugs: None - *Family History Maternal History Items: - - Aneurysms Paternal History Items: Heart Disease Review of Systems Constitutional: Denies: Chills, Fever, Weight Change HEENT: Denies: Head Aches, Sinus Congestion, Sinus Drainage Cardiovascular: Denies: Chest Pain, Palpitations Respiratory: Denies: Cough, Shortness of breath at rest, Sputum production Gastrointestinal: Denies: Abdominal Pain, Nausea, Vomiting Genitourinary: Denies: Dysuria Musculoskeletal: Denies: Joint Pain, Joint Tenderness Skin: Denies: Rash, Wounds Neurological: Reports: Numbness - Bilateral lower extremities., Tingling - Bilateral lower extremities.. Denies: Focal weakness Psychiatric: Denies: Anxiety, Depression, Homicidal Ideations, Suicidal Ideations Hematologic/ Lymphatic: Denies: Easy Bruising, Easy Bleeding VTE Information - Inpt Only VTE Present on Admission: No VTE Mechan Device Prophylaxis: Knee High MARIALUISA Hose VTE Pharm Prophylaxis ordered?: Yes Patient Problems: Active and Suspected Problems (Last Reviewed 07/12/20 @ 00:[address] Hay Leavitt MD) Debility (Acute) Gait difficulty (Acute) Lumbar spinal stenosis (Acute) Lumbar radiculopathy (Acute) - Physical Exam Vitals/I&O's: Vital Signs Temp Pulse Resp BP Pulse Ox 97.1 F L 52 L 18 141/57 H 96 07/14/20 15:35 07/14/20 15:35 07/14/20 15:35 07/14/20 15:35 07/14/20 15:35 Oxygen Delivery Method Room Air Weight: 119.1 kg Body Mass Index (BMI) 41.1 General: Alert, Oriented x3, Cooperative HEENT: Atraumatic, PERRLA, EOMI, Normocephalic Neck: Supple, No JVD, Negative Carotid Bruits Lungs: Clear to auscultation, Normal air movement Cardiovascular: Regular rate, No murmurs Abdomen: Bowel Sounds Present, Soft, Non Tender Extremities: No edema, Capillary Refill Less than 3 Seconds Skin: No rashes, No breakdown Musculoskeletal: No Tenderness to Palpation of Joints or Extremities Neurological: Cranial nerves II-XII grossly intact Psych/Mental Status: Normal Affect, Appropriate Laboratory Results 07/14/20 18:32: COVID-19 (ESTEFANIA) Pending Current Medications Acetaminophen (Tylenol) 500 - 1,000 mg PO Q6H PRN PRN PRN Reason: Pain score 1-10/10 or Fever Aspirin (Aspirin, Baby) 81 mg PO DAILY@0800 [facility] Atorvastatin Calcium (Lipitor) 40 mg PO QHS [facility] Bisacodyl (Dulcolax) 5 mg PO DAILY PRN PRN Reason: Constipation Calamine/Phenol (Calmoseptine Ointment) 1 applic TOPICAL BID@0600,2200 [facility]; Protocol Carvedilol (Coreg) 12.5 mg PO BID [facility] Last Admin: 07/14/20 17:51 Dose: 12.5 mg Documented by: Ergocalciferol (Vitamin D) 50,000 unit PO Q7D@1000 [facility] Stop: 09/01/20 10:01 Furosemide (Lasix) 40 mg PO DAILY [facility] Isosorbide Dinitrate (Isordil) 30 mg PO BID [facility] Last Admin: 07/14/20 17:51 Dose: 30 mg Documented by: Lisinopril (Zestril) 5 mg PO DAILY [facility] Multivitamins/Minerals (Multivitamin With Minerals (Bkc)) 1 tablet PO DAILY@0800 [facility] Nutritional Formula (Lactose Free) (Ensure Enlive) 120 ml PO 4X/DAY [facility] Last Admin: 07/14/20 17:51 Dose: 120 ml Documented by: Nystatin (Mycostatin) 1 applic TOPICAL BID@0600,2200 [facility]; Protocol Polyethylene Glycol (Miralax) 17 gm PO DAILY [facility] Potassium Chloride (K-Dur) 10 meq PO DAILY [facility] Senna/Docusate Sodium (Senokot-S, Mirian-Colace) 1 tablet PO BID [facility] Tuberculin PPD (Tubersol, Aplisol, Ppd) 5 tu ID X1 ONE Stop: 07/15/20 10:01 Tuberculin PPD (Tubersol, Aplisol, Ppd) 5 tu ID X1 ONE Stop: 07/22/20 10:01 Assessment/Plan All Active Problems (Last Reviewed 07/12/20 @ 00:[address] Hay Leavitt MD) Difficulty walking (Acute) Debility (Acute) Gait difficulty (Acute) Lumbar spinal stenosis (Acute) Lumbar radiculopathy (Acute) 79 year old female with below past medical history hospitalized for gait difficulty due to lumbar spinal stenosis, lumbar radiculopathy, admitted to TCU with debility, here for rehabilitation, strengthening, prior to discharge home with family. Debility - PT/OT. Pain - Tylenol 1000MG Q6H PRN pain (1-3), Oxycodone 2.5MG Q4H PRN pain (4-10). Bowel - Miralax 17GM daily, Senna/colace 1 tablet BID, Dulcolax 10MG [place] daily PRN. Adult immunization - Administer Prevnar 13, Pneumovax 23, Fluzone as appropriate. DVT prophylaxis - Lovenox 40MG SC daily. Coronary Artery Disease - Coreg 12.5MG BID, Lisinopril 5MG daily, Isosorbide 30MG BID, Aspirin 81MG daily. Hyperlipidemia - Atorvastatin 40MG QHS. Nutrition - Ensure Enlive 120ML 4x/day. Chronic systolic congestive heart failure - Coreg 12.5MG BID, Lisinopril 5MG daily, Isosorbide 30MG BID, Lasix 40MG daily, Consider transitioning from Lisinopril to Entresto for better quality of life. Hypokalemia - K-Dur 10MEQ daily. Skin irritation - Calmoseptine BID. Tinea Corporis - Nystatin powder topical BID. Low Back Pain - X-ray of LS spine, Medrol dose vesta, if no improvement, order MRI LS spine, consult Dr. Diane for lumbar epidural steroid injections. Lumbar spinal stenosis - Naproxen 500MG BID with food. Muscle spasm - Baclofen 10MG QHS. Lumbar radiculopathy - Gabapentin 100MG TID. GI prophylaxis - Pantoprazole 40MG daily.
--- NOTE | 2020-07-14 21:15 | RAD_ITS ---
STUDY: X-RAY - LUMBAR SPINE REASON FOR EXAM: Female, 79 years old. Lumbar radiculopathy. TECHNIQUE: 3 view(s) of the lumbar spine were obtained. COMPARISON: None FINDINGS: Normal lumbar lordosis. There is no substantial scoliosis. There is a normal alignment of the vertebrae. There is diffuse demineralization with multi-level endplate spondylosis. There is multi-level degenerative disc disease with multi-level disc space narrowing. There is atherosclerotic calcification of the abdominal aorta without a demonstrated aneurysm. RAD/Lumbar Spine 2 or 3 Views IMPRESSION: Degenerative changes of the spine, as detailed above. Electronically Signed: Beata Dial, at 9:35 EDT Tel , Service support ,
[2020-07-14] MEDS: Atorvastatin Calcium 40 MG Tablet PO (21:48)
[2020-07-14] MEDS: Menthol/Lanolin/Calamine/Znox 113 GM Tube 1 APPLIC TOPICAL (21:52)
[2020-07-14] MEDS: Nystatin Ointment 1 APPLIC TOPICAL (21:53)
[2020-07-14] MEDS: Baclofen 10 MG Tablet PO (21:56)
[2020-07-14] MEDS: MethylPREDNISolone DosePak 4 MG BOX PO (21:57)
[2020-07-14] MEDS: Acetaminophen 500 MG Tablet 1000 MG PO (22:22)
[2020-07-15 04:00] VITALS: BP 157/60; PULSE 63; RESP 20; TEMP 36.2; O2SAT 93
[2020-07-15 05:45] LABS: Hematocrit 35.8 % (37-47); Hemoglobin 11.1 g/dL (12.0-15.0); Mean Corpuscular Hgb 29.2 pg (27.0-32.0); Mean Corpuscular Volume 94.2 fL (81-99); Platelet Count 264 K/mm3 (150-450); RBC Distribution Width CV 14.1 % (11.6-14.6); RBC Distribution Width SD 48.5 fl (35.1-43.9); White Blood Count 8.9 K/mm3 (4.4-11.0)
[2020-07-15 06:09] LABS: Anion Gap 4 (5-15); BUN 36 mg/dL (7-18); BUN/Creat Ratio 33.6 RATIO (10-20); Calcium,Total 8.8 mg/dL (8.5-10.1); Chloride 102 mmol/L (98-107); Creatinine, Serum 1.07 mg/dL (0.55-1.02); EST Glomerular Filtration Rate 53 mL/min (>60); Est Glom Filt Rate - Afr Amer 64 mL/min (>60); Estimated Creatinine Clearance 41.46 ml/min; Glucose 196 mg/dL (74-106); Potassium 5.4 mmol/L (3.5-5.1); Sodium Level 135 mmol/L (136-145)
[2020-07-15] MEDS: Isosorbide DN 30 MG Tablet PO ×2 (07:14→18:10)
[2020-07-15] MEDS: Furosemide 40 MG Tablet PO (07:15)
[2020-07-15] MEDS: Pantoprazole Sodium 40 MG Tablet PO (07:15)
[2020-07-15] MEDS: Enoxaparin 40 MG/0.4 ML Syringe SC (07:15)
[2020-07-15] MEDS: Senna/Docusate Sodium 1 Tablet PO (07:16)
[2020-07-15] MEDS: Naproxen 500 MG Tablet PO ×2 (07:16→18:10)
[2020-07-15] MEDS: MethylPREDNISolone DosePak 4 MG BOX PO ×4 (07:16→21:46)
[2020-07-15] MEDS: Aspirin 81 MG TAB.CHEW PO (07:16)
[2020-07-15] MEDS: Gabapentin 100 MG Capsule PO ×3 (07:16→18:11)
[2020-07-15] MEDS: Acetaminophen 500 MG Tablet 1000 MG PO ×2 (07:17→21:52)
[2020-07-15] MEDS: Carvedilol 12.5 MG Tablet PO ×2 (07:21→18:11)
[2020-07-15] MEDS: Lisinopril 5 MG Tablet PO (07:21)
[2020-07-15] MEDS: Nystatin Ointment 1 APPLIC TOPICAL ×2 (07:21→21:49)
[2020-07-15] MEDS: Menthol/Lanolin/Calamine/Znox 113 GM Tube 1 APPLIC TOPICAL ×2 (07:21→21:46)
[2020-07-15] MEDS: Sodium Polystyrene Sulfonate 15 GM/60 ML UDC 30 GM PO (09:34)
[2020-07-15] MEDS: Tuberculin,Purif.prot.deriv. 50 TU/ML Vial 5 ML ID (09:36)
--- NOTE | 2020-07-15 11:44 | PHA.CONS_ITS ---
<MandyalfieRamya M - Last Filed: 07/15/20 11:44> Progress Note - Pharmacy Subjective: TCU ADMISSION Objective: Allergies No Known Allergies Allergy (Verified 07/14/20 16:03) Current Medications Generic Name Dose Route Start Last Admin Trade Name Freq PRN Reason Stop Dose Admin Acetaminophen 1,000 mg 07/14/20 21:13 07/15/20 07:17 Tylenol PO 1,000 mg Q6H PRN PRN Administration Pain Score 1-3/10 Aspirin 81 mg 07/15/20 08:00 07/15/20 07:16 Aspirin, Baby PO 81 mg DAILY@0800 KARRI Administration Atorvastatin Calcium 40 mg 07/14/20 22:00 07/14/20 21:48 Lipitor PO 40 mg QHS KARRI Administration Baclofen 10 mg 07/14/20 22:00 07/14/20 21:56 Lioresal PO 07/24/20 22:01 10 mg QHS KARRI Administration Bisacodyl 10 mg 07/14/20 21:13 Dulcolax RECTAL DAILY PRN Constipation Calamine/Phenol 1 applic 07/14/20 22:00 07/15/20 07:21 Calmoseptine Ointment TOPICAL 1 applicatio BID@0600,2200 KARRI Administration Protocol Carvedilol 12.5 mg 07/14/20 18:00 07/15/20 07:21 Coreg PO 12.5 mg BID KARRI Administration Enoxaparin Sodium 40 mg 07/15/20 06:00 07/15/20 07:15 Lovenox SC 40 mg DAILY@0600 KARRI Administration Furosemide 40 mg 07/15/20 06:00 07/15/20 07:15 Lasix PO 40 mg DAILY KARRI Administration Gabapentin 100 mg 07/15/20 07:45 07/15/20 07:16 Neurontin PO 07/25/20 07:46 100 mg TIDCM KARRI Administration Isosorbide Dinitrate 30 mg 07/14/20 18:00 07/15/20 07:14 Isordil PO 30 mg BID KARRI Administration Lisinopril 5 mg 07/15/20 06:00 07/15/20 07:21 Zestril PO 5 mg DAILY KARRI Administration Methylprednisolone 4 mg 07/14/20 22:00 07/15/20 07:16 Medrol Dosepak PO 07/19/20 08:59 4 mg 0800,1200,1700 KARRI Administration Taper Naproxen 500 mg 07/15/20 08:00 07/15/20 07:16 Naprosyn PO 07/25/20 08:01 500 mg BIDCM KARRI Administration Nystatin 1 applic 07/14/20 22:00 07/15/20 07:21 Mycostatin TOPICAL 1 applicatio BID@0600,2200 KARRI Administration Protocol Oxycodone HCl 2.5 mg 07/14/20 21:13 Oxyir PO Q4H PRN PRN Pain Score 4-10/10 Pantoprazole Sodium 40 mg 07/15/20 06:00 07/15/20 07:15 Protonix PO 07/25/20 06:01 40 mg DAILY KARRI Administration Polyethylene Glycol 17 gm 07/15/20 06:00 07/15/20 07:15 Miralax PO Not Given DAILY KARRI Senna/Docusate Sodium 1 tablet 07/15/20 06:00 07/15/20 07:16 Senokot-S, Mirian-Colace PO 1 tablet BID KARRI Administration Tuberculin PPD 5 tu 07/22/20 10:00 Tubersol, Aplisol, Ppd ID 07/22/20 10:01 X1 ONE Problem List (Last Reviewed 07/12/20 @ 00:[address] Hay Leavitt MD) Debility (Acute) Gait difficulty (Acute) Edema (Chronic) Venous stasis dermatitis (Chronic) Lumbar spinal stenosis (Acute) Lumbar radiculopathy (Acute) Coronary artery disease (Chronic) Chronic systolic (congestive) heart failure (Chronic) Hyperlipidemia (Chronic) Vital Signs Temp Pulse Resp BP Pulse Ox 97.1 F L 63 20 H 157/60 H 93 07/15/20 04:00 07/15/20 04:00 07/15/20 04:00 07/15/20 04:00 07/15/20 04:00 Oxygen Delivery Method Room Air Weight: 119.1 kg Body Mass Index (BMI) 41.1 Sodium 135 mmol/L (136-145) L 07/15/20 05:17 Potassium 5.4 mmol/L (3.5-5.1) H 07/15/20 05:17 Chloride 102 mmol/L (98-107) 07/15/20 05:17 Carbon Dioxide 29.0 mmol/L (21.0-32.0) 07/15/20 05:17 Anion Gap 4 (5-15) L 07/15/20 05:17 BUN 36 mg/dL (7-18) H 07/15/20 05:17 Creatinine 1.07 mg/dL (0.55-1.02) H 07/15/20 05:17 Est GFR (MDRD) Af Amer 64 mL/min (>60) 07/15/20 05:17 Est GFR (MDRD) Non-Af 53 mL/min (>60) L 07/15/20 05:17 BUN/Creatinine Ratio 33.6 RATIO (10-20) H 07/15/20 05:17 Glucose 196 mg/dL (74-106) H 07/15/20 05:17 Assessment/Plan: 1. Pain: Tylenol 1000mg PO Q6h PRN Pain 1-3, Oxycodone 2.5mg PO Q4h PRN pain 4- 10. Please continue to monitor for S/S increased/decreased pain, PRN medication usage. 2. CAD/CHF: Aspirin 81mg PO Daily, Lipitor 40mg PO QHS, Coreg 12.5mg PO BID, Lasix 40mg PO Daily, Isordil 30mg PO BID, Lisinopril 5mg PO Daily. Please continue to monitor BP, pulse, electrolytes, fluid status, S/S bleeding/bruising, lipid panel at least annually or sooner if clinically indicated. 3. Lower back pain/ Spinal stenosis: Naproxen 500mg PO BIDCM thru 07/25/20, Medrol Dosepak thru 07/19. Please continue to monitor for improvement in pain symptoms, S/S hyperglycemia, insomnia, agitation. 4. Muscle Spasm: Baclofen 10mg PO QHS. Please continue to monitor for dizziness, drowsiness, medication effectiveness. 5. Lumbar radiculopathy: 100mg PO TIDCM thru 07/25/20. Please continue to monitor for medication effectiveness, renal function. 6. GERD: Protonix 40mg PO daily. Please continue to monitor for medication effectiveness. 7. DVT: Lovenox 40mg PO Daily. Please continue to monitor renal function, S/S bleeding/bruising. Psychotropic Medications: None Unnecessary Medications: None Bowel Regimen: Miralax 17g PO Daily, Senna/Docusate 1 tab PO BID, Dulcolax 10mg [place] Daily PRN. Please continue to monitor for increased/decreased bowel movements and/or diarrhea. Date of Note:: 07/15/20 - Provider Comments Provider responsibility: Provider responsible to enter orders to implement recommendations <Tanvir Platt Chi - Last Filed: 07/15/20 13:59> Progress Note - Pharmacy Subjective: [] Objective: Allergies No Known Allergies Allergy (Verified 07/14/20 16:03) Current Medications Generic Name Dose Route Start Last Admin Trade Name Freq PRN Reason Stop Dose Admin Acetaminophen 1,000 mg 07/14/20 21:13 07/15/20 07:17 Tylenol PO 1,000 mg Q6H PRN PRN Administration Pain Score 1-3/10 Aspirin 81 mg 07/15/20 08:00 07/15/20 07:16 Aspirin, Baby PO 81 mg DAILY@0800 KARRI Administration Atorvastatin Calcium 40 mg 07/14/20 22:00 07/14/20 21:48 Lipitor PO 40 mg QHS KARRI Administration Baclofen 10 mg 07/14/20 22:00 07/14/20 21:56 Lioresal PO 07/24/20 22:01 10 mg QHS KARRI Administration Bisacodyl 10 mg 07/14/20 21:13 Dulcolax RECTAL DAILY PRN Constipation Calamine/Phenol 1 applic 07/14/20 22:00 07/15/20 07:21 Calmoseptine Ointment TOPICAL 1 applicatio BID@0600,2200 KARRI Administration Protocol Carvedilol 12.5 mg 07/14/20 18:00 07/15/20 07:21 Coreg PO 12.5 mg BID KARRI Administration Enoxaparin Sodium 40 mg 07/15/20 06:00 07/15/20 07:15 Lovenox SC 40 mg DAILY@0600 KARRI Administration Furosemide 40 mg 07/15/20 06:00 07/15/20 07:15 Lasix PO 40 mg DAILY KARRI Administration Gabapentin 100 mg 07/15/20 07:45 07/15/20 11:54 Neurontin PO 07/25/20 07:46 100 mg TIDCM KARRI Administration Isosorbide Dinitrate 30 mg 07/14/20 18:00 07/15/20 07:14 Isordil PO 30 mg BID KARRI Administration Lisinopril 5 mg 07/15/20 06:00 07/15/20 07:21 Zestril PO 5 mg DAILY KARRI Administration Magnesium Citrate 300 ml 07/15/20 13:55 Citrate Of Magnesia PO 07/15/20 13:56 X1 ONE Methylprednisolone 4 mg 07/14/20 22:00 07/15/20 11:55 Medrol Dosepak PO 07/19/20 08:59 4 mg 0800,1200,1700 KARRI Administration Taper Naproxen 500 mg 07/15/20 08:00 07/15/20 07:16 Naprosyn PO 07/25/20 08:01 500 mg BIDCM KARRI Administration Nystatin 1 applic 07/14/20 22:00 07/15/20 07:21 Mycostatin TOPICAL 1 applicatio BID@0600,2200 KARRI Administration Protocol Oxycodone HCl 2.5 mg 07/14/20 21:13 Oxyir PO Q4H PRN PRN Pain Score 4-10/10 Pantoprazole Sodium 40 mg 07/15/20 06:00 07/15/20 07:15 Protonix PO 07/25/20 06:01 40 mg DAILY KARRI Administration Polyethylene Glycol 17 gm 07/15/20 06:00 07/15/20 07:15 Miralax PO Not Given DAILY KARRI Senna/Docusate Sodium 1 tablet 07/15/20 06:00 07/15/20 07:16 Senokot-S, Mirian-Colace PO 1 tablet BID K[facility]RI Administration Tuberculin PPD 5 tu 07/22/20 10:00 Tubersol, Aplisol, Ppd ID 07/22/20 10:01 X1 ONE Problem List (Last Reviewed 07/12/20 @ 00:[address] Hay Leavitt MD) Debility (Acute) Gait difficulty (Acute) Edema (Chronic) Venous stasis dermatitis (Chronic) Lumbar spinal stenosis (Acute) Lumbar radiculopathy (Acute) Coronary artery disease (Chronic) Chronic systolic (congestive) heart failure (Chronic) Hyperlipidemia (Chronic) Vital Signs Temp Pulse Resp BP Pulse Ox 97.1 F L 63 20 H 157/60 H 93 07/15/20 04:00 07/15/20 04:00 07/15/20 04:00 07/15/20 04:00 07/15/20 04:00 Oxygen Delivery Method Room Air Weight: 119.1 kg Body Mass Index (BMI) 41.1 Sodium 135 mmol/L (136-145) L 07/15/20 05:17 Potassium 5.4 mmol/L (3.5-5.1) H 07/15/20 05:17 Chloride 102 mmol/L (98-107) 07/15/20 05:17 Carbon Dioxide 29.0 mmol/L (21.0-32.0) 07/15/20 05:17 Anion Gap 4 (5-15) L 07/15/20 05:17 BUN 36 mg/dL (7-18) H 07/15/20 05:17 Creatinine 1.07 mg/dL (0.55-1.02) H 07/15/20 05:17 Est GFR (MDRD) Af Amer 64 mL/min (>60) 07/15/20 05:17 Est GFR (MDRD) Non-Af 53 mL/min (>60) L 07/15/20 05:17 BUN/Creatinine Ratio 33.6 RATIO (10-20) H 07/15/20 05:17 Glucose 196 mg/dL (74-106) H 07/15/20 05:17 Assessment/Plan: Psychotropic Medications: Unnecessary Medications: Bowel Regimen: - Provider Comments Provider responsibility: Provider responsible to enter orders to implement recommendations Provider Comments to Recommendations by Pharmacy: Agree
[2020-07-15 14:09] VITALS: BP 117/46; PULSE 66; RESP 17; TEMP 36.3; O2SAT 92
--- NOTE | 2020-07-15 14:28 | NURSING ---
attempted to administer Mag citrate per MD order, pt refused. Pt sitting on BSC with liquid explosive stool at this time. updated DR Platt.
[2020-07-15] MEDS: Baclofen 10 MG Tablet PO (21:48)
[2020-07-15] MEDS: Atorvastatin Calcium 40 MG Tablet PO (21:48)
[2020-07-16] MEDS: Lisinopril 5 MG Tablet PO (05:45)
[2020-07-16] MEDS: Enoxaparin 40 MG/0.4 ML Syringe SC (05:45)
[2020-07-16] MEDS: Senna/Docusate Sodium 1 Tablet PO ×2 (05:45→16:44)
[2020-07-16] MEDS: Carvedilol 12.5 MG Tablet PO ×2 (05:46→16:44)
[2020-07-16] MEDS: Isosorbide DN 30 MG Tablet PO ×2 (05:46→16:44)
[2020-07-16] MEDS: Furosemide 40 MG Tablet PO (05:46)
[2020-07-16] MEDS: Polyethylene Glycol 3350 17 GM PACKET PO (05:46)
[2020-07-16] MEDS: Menthol/Lanolin/Calamine/Znox 113 GM Tube 1 APPLIC TOPICAL ×3 (05:46→22:56)
[2020-07-16] MEDS: Pantoprazole Sodium 40 MG Tablet PO (05:46)
[2020-07-16] MEDS: Acetaminophen 500 MG Tablet 1000 MG PO ×2 (05:49→23:01)
[2020-07-16] MEDS: Nystatin Ointment 1 APPLIC TOPICAL ×2 (05:51→22:57)
[2020-07-16 05:53] VITALS: BP 157/50; PULSE 69; RESP 14; TEMP 36.8; O2SAT 97
[2020-07-16 08:16] LABS: Anion Gap 3 (5-15); BUN 44 mg/dL (7-18); BUN/Creat Ratio 41.1 RATIO (10-20); Calcium,Total 8.8 mg/dL (8.5-10.1); Chloride 103 mmol/L (98-107); Creatinine, Serum 1.07 mg/dL (0.55-1.02); EST Glomerular Filtration Rate 53 mL/min (>60); Est Glom Filt Rate - Afr Amer 64 mL/min (>60); Estimated Creatinine Clearance 41.46 ml/min; Glucose 175 mg/dL (74-106); Potassium 5.6 mmol/L (3.5-5.1); Sodium Level 137 mmol/L (136-145)
[2020-07-16] MEDS: Aspirin 81 MG TAB.CHEW PO (08:45)
[2020-07-16] MEDS: MethylPREDNISolone DosePak 4 MG BOX PO ×4 (08:45→22:50)
[2020-07-16] MEDS: Naproxen 500 MG Tablet PO ×2 (08:45→16:44)
[2020-07-16] MEDS: Gabapentin 100 MG Capsule PO ×3 (08:45→16:44)
[2020-07-16 10:00] VITALS: PULSE 57; RESP 16; O2SAT 92
[2020-07-16] MEDS: 0.9% Normal Saline 1,000 ML 60 ML IV (10:57)
[2020-07-16] MEDS: Sodium Polystyrene Sulfonate 15 GM/60 ML UDC 30 GM PO (11:13)
[2020-07-16 13:49] VITALS: BP 139/42; PULSE 50; RESP 16; TEMP 36.4; O2SAT 93
[2020-07-16 16:42] VITALS: BP 146/69; PULSE 63
[2020-07-16] MEDS: Baclofen 10 MG Tablet PO (22:51)
[2020-07-16] MEDS: Atorvastatin Calcium 40 MG Tablet PO (22:51)
[2020-07-17 04:00] VITALS: BP 158/77; PULSE 62; RESP 16; TEMP 36.6; O2SAT 97
[2020-07-17] MEDS: 0.9% Normal Saline 1,000 ML 60 ML IV (04:12)
[2020-07-17] MEDS: Isosorbide DN 30 MG Tablet PO ×2 (05:37→17:03)
[2020-07-17] MEDS: Furosemide 40 MG Tablet PO (05:37)
[2020-07-17] MEDS: Senna/Docusate Sodium 1 Tablet PO ×2 (05:37→17:03)
[2020-07-17] MEDS: Carvedilol 12.5 MG Tablet PO ×2 (05:37→17:03)
[2020-07-17] MEDS: Pantoprazole Sodium 40 MG Tablet PO (05:37)
[2020-07-17] MEDS: Enoxaparin 40 MG/0.4 ML Syringe SC (05:40)
[2020-07-17] MEDS: Menthol/Lanolin/Calamine/Znox 113 GM Tube 1 APPLIC TOPICAL ×2 (05:40→21:16)
[2020-07-17] MEDS: Nystatin Ointment 1 APPLIC TOPICAL ×2 (05:43→21:28)
[2020-07-17 06:42] LABS: Anion Gap 1 (5-15); BUN 45 mg/dL (7-18); BUN/Creat Ratio 48.2 RATIO (10-20); Calcium,Total 8.5 mg/dL (8.5-10.1); Chloride 107 mmol/L (98-107); Creatinine, Serum 0.93 mg/dL (0.55-1.02); EST Glomerular Filtration Rate 62 mL/min (>60); Est Glom Filt Rate - Afr Amer 74 mL/min (>60); Glucose 188 mg/dL (74-106); Potassium 4.9 mmol/L (3.5-5.1); Sodium Level 139 mmol/L (136-145)
[2020-07-17] MEDS: MethylPREDNISolone DosePak 4 MG BOX PO ×3 (08:49→21:16)
[2020-07-17] MEDS: Aspirin 81 MG TAB.CHEW PO (08:49)
[2020-07-17] MEDS: Naproxen 500 MG Tablet PO ×2 (08:51→17:03)
[2020-07-17] MEDS: Gabapentin 100 MG Capsule PO ×3 (08:51→17:03)
[2020-07-17] MEDS: Acetaminophen 500 MG Tablet 1000 MG PO ×2 (09:25→21:25)
--- NOTE | 2020-07-17 11:27 | NURSING ---
This nurse explained order for Sodium and potassium restriction diet and 1500cc fluid restriction. Education to both given. Spent approx 10 min educating in the room with pt. Pt seems to understand.
[2020-07-17 14:14] VITALS: BP 135/82; PULSE 63; RESP 16; TEMP 36.2; O2SAT 94
--- NOTE | 2020-07-17 16:40 | NURSING ---
This nurse is aware of Vital Signs that were taken this afternoon around 1400.
[2020-07-17] MEDS: Baclofen 10 MG Tablet PO (21:16)
[2020-07-17] MEDS: Atorvastatin Calcium 40 MG Tablet PO (21:16)
[2020-07-17] MEDS: 0.9% Saline Lock 10 ML Syringe IV (21:26)
[2020-07-17 22:10] VITALS: PULSE 62; RESP 16; O2SAT 95
[2020-07-18 04:00] VITALS: BP 190/66; PULSE 60; RESP 16; TEMP 36.9; O2SAT 96
[2020-07-18] MEDS: Pantoprazole Sodium 40 MG Tablet PO (06:31)
[2020-07-18] MEDS: Enoxaparin 40 MG/0.4 ML Syringe SC (06:31)
[2020-07-18] MEDS: Carvedilol 12.5 MG Tablet PO ×2 (06:31→17:48)
[2020-07-18] MEDS: Isosorbide DN 30 MG Tablet PO ×2 (06:31→17:49)
[2020-07-18] MEDS: Furosemide 40 MG Tablet PO (06:31)
[2020-07-18] MEDS: Senna/Docusate Sodium 1 Tablet PO ×2 (06:31→17:48)
[2020-07-18] MEDS: 0.9% Saline Lock 10 ML Syringe IV ×2 (06:36→10:41)
[2020-07-18] MEDS: Menthol/Lanolin/Calamine/Znox 113 GM Tube 1 APPLIC TOPICAL ×2 (06:36→21:25)
[2020-07-18] MEDS: Nystatin Ointment 1 APPLIC TOPICAL ×2 (06:43→21:26)
[2020-07-18] MEDS: Gabapentin 100 MG Capsule PO ×3 (08:19→17:48)
[2020-07-18] MEDS: Naproxen 500 MG Tablet PO ×2 (08:19→17:48)
[2020-07-18] MEDS: Aspirin 81 MG TAB.CHEW PO (08:20)
[2020-07-18] MEDS: MethylPREDNISolone DosePak 4 MG BOX PO ×2 (08:21→21:24)
--- NOTE | 2020-07-18 10:11 | PCA ---
Called [facility] to obtain a precert for MRI of Lumbar Spine. Precert was denied at this time due to needing 6 weeks of conservative treatment then a follow up with physician. Case #[id number]. Spoke with Lakanya. SNOW aware
[2020-07-18 10:30] VITALS: PULSE 56; RESP 18; O2SAT 93
--- NOTE | 2020-07-18 11:47 | NURSING ---
pt stated she up dates her family.
[2020-07-18 13:36] VITALS: BP 105/48; PULSE 60; RESP 14; TEMP 36.1; O2SAT 94
[2020-07-18 17:45] VITALS: BP 151/85; PULSE 65
[2020-07-18] MEDS: Baclofen 10 MG Tablet PO (21:24)
[2020-07-18] MEDS: Atorvastatin Calcium 40 MG Tablet PO (21:24)
[2020-07-19] MEDS: Carvedilol 12.5 MG Tablet PO ×2 (05:14→17:06)
[2020-07-19] MEDS: Pantoprazole Sodium 40 MG Tablet PO (05:14)
[2020-07-19] MEDS: Isosorbide DN 30 MG Tablet PO ×2 (05:14→17:06)
[2020-07-19] MEDS: Enoxaparin 40 MG/0.4 ML Syringe SC (05:14)
[2020-07-19] MEDS: Senna/Docusate Sodium 1 Tablet PO ×2 (05:14→17:07)
[2020-07-19] MEDS: Furosemide 40 MG Tablet PO (05:14)
[2020-07-19] MEDS: Nystatin Ointment 1 APPLIC TOPICAL ×2 (05:17→21:24)
[2020-07-19 05:18] VITALS: BP 137/55; PULSE 51; RESP 16; TEMP 36.4; O2SAT 93
[2020-07-19] MEDS: Menthol/Lanolin/Calamine/Znox 113 GM Tube 1 APPLIC TOPICAL ×2 (05:18→21:24)
[2020-07-19] MEDS: 0.9% Saline Lock 10 ML Syringe IV (05:21)
[2020-07-19] MEDS: MethylPREDNISolone DosePak 4 MG BOX PO (08:18)
[2020-07-19] MEDS: Naproxen 500 MG Tablet PO ×2 (08:19→17:06)
[2020-07-19] MEDS: Aspirin 81 MG TAB.CHEW PO (08:19)
[2020-07-19] MEDS: Gabapentin 100 MG Capsule PO ×3 (08:19→17:06)
[2020-07-19] MEDS: Acetaminophen 500 MG Tablet 1000 MG PO (08:22)
--- NOTE | 2020-07-19 11:48 | NURSING ---
PT STATED SHE HAS UP DATED HER DAUGHTER TODAY.
[2020-07-19 14:03] VITALS: BP 145/62; PULSE 52; RESP 16; TEMP 36.2; O2SAT 95
--- NOTE | 2020-07-19 15:10 | CHAPLAIN ---
Type of Pastoral Visit _x__ Initial Visit ___ Follow-up Visit ___ On-call Visit ___ General Patient Visit ___ Spiritual Assessment ___ Family Conference ___ Bereavement ___ Rapid Response ___ Code Blue ___ Other (describe below) Pastoral Care Referral From _x__ Patient ___ Family ___ Nurse ___ Physician ___ Project Accountant ___ Deliverer Food ___ Other (describe below) Sacrament/Intervention _x__ Active listening ___ Anointing ___ Episcopal ___ Bereavement ___ Communion _x__ Gwen exploration ___ _x__ Life review _x__ Prayer ___ Reconciliation ___ Sacrament of Sick _x__ Supportive presence ___ Wedding ___ Other (describe below) Pastoral Comments
[2020-07-19 17:03] VITALS: PULSE 62
--- NOTE | 2020-07-19 17:05 | NURSING ---
this nurse d/c saline lock per rn.
[2020-07-19] MEDS: Atorvastatin Calcium 40 MG Tablet PO (21:23)
[2020-07-19] MEDS: Baclofen 10 MG Tablet PO (21:23)
[2020-07-19 21:29] VITALS: PULSE 51; RESP 16; O2SAT 94
[2020-07-20] MEDS: Carvedilol 12.5 MG Tablet PO ×2 (05:29→16:51)
[2020-07-20] MEDS: Furosemide 40 MG Tablet PO (05:29)
[2020-07-20] MEDS: Isosorbide DN 30 MG Tablet PO ×2 (05:29→16:51)
[2020-07-20] MEDS: Pantoprazole Sodium 40 MG Tablet PO (05:29)
[2020-07-20] MEDS: Senna/Docusate Sodium 1 Tablet PO ×2 (05:29→16:51)
[2020-07-20] MEDS: Enoxaparin 40 MG/0.4 ML Syringe SC (05:29)
[2020-07-20] MEDS: Menthol/Lanolin/Calamine/Znox 113 GM Tube 1 APPLIC TOPICAL ×2 (05:31→21:09)
[2020-07-20] MEDS: Nystatin Ointment 1 APPLIC TOPICAL ×2 (05:31→21:09)
[2020-07-20 05:32] VITALS: BP 151/53; PULSE 50; RESP 18; TEMP 35.9; O2SAT 94
[2020-07-20] MEDS: Naproxen 500 MG Tablet PO ×2 (08:52→16:51)
[2020-07-20] MEDS: Aspirin 81 MG TAB.CHEW PO (08:52)
[2020-07-20] MEDS: Gabapentin 100 MG Capsule PO ×3 (08:52→16:51)
[2020-07-20] MEDS: Acetaminophen 500 MG Tablet 1000 MG PO ×2 (08:55→21:08)
[2020-07-20 10:00] VITALS: PULSE 50; RESP 16; O2SAT 94
--- NOTE | 2020-07-20 12:02 | CASEMGMT ---
Social Work IDT met with patient and daughter via conference call for care plan meeting. Discussed patient's progress in therapy. Pt is modA x2 for transfers with FWW, ambulating 2-4 ft with FWW at modA x2 with w/c follow and knees flexed. Pt is set up fro grooming, mod for bathing while seated, set up for UE ADLS, max for LE ADLS, max for toileting. Pt cannot take hand off walker due to poor balance. Pt is on a cardiac, low sodium, low potassium diet, with 1600 cc fluid restriction. Pt [facility] out of isolation 07/28. [facility], and continued stay is not guaranteed. Pt lives at home with her daughter. Daughter works 3/wk. Discussed additional assistance in the home at [place]. Pt and dtr agreed to hiring aides for 4 hours in the evening on the days the dtr is at work. Emailed list of nonskilled [facility] aides. Will continue to follow. DEYSI Weeks MANAGER ENDOSCOPY
[2020-07-20 13:24] VITALS: BP 120/67; PULSE 52; RESP 16; TEMP 36.4; O2SAT 91
[2020-07-20] MEDS: Atorvastatin Calcium 40 MG Tablet PO (21:07)
[2020-07-20] MEDS: Baclofen 10 MG Tablet PO (21:07)
[2020-07-21 05:29] VITALS: BP 95/53; PULSE 58; RESP 18; TEMP 37.1; O2SAT 94
[2020-07-21] MEDS: Furosemide 40 MG Tablet PO (05:32)
[2020-07-21] MEDS: Pantoprazole Sodium 40 MG Tablet PO (05:32)
[2020-07-21] MEDS: Isosorbide DN 30 MG Tablet PO ×2 (05:32→17:26)
[2020-07-21] MEDS: Carvedilol 12.5 MG Tablet PO ×2 (05:32→17:26)
[2020-07-21] MEDS: Enoxaparin 40 MG/0.4 ML Syringe SC (05:33)
[2020-07-21] MEDS: Menthol/Lanolin/Calamine/Znox 113 GM Tube 1 APPLIC TOPICAL ×2 (05:35→21:18)
[2020-07-21] MEDS: Nystatin Ointment 1 APPLIC TOPICAL ×2 (05:35→21:18)
[2020-07-21] MEDS: Gabapentin 100 MG Capsule PO ×3 (07:57→17:25)
[2020-07-21] MEDS: Naproxen 500 MG Tablet PO ×2 (07:57→17:26)
[2020-07-21] MEDS: Aspirin 81 MG TAB.CHEW PO (07:57)
[2020-07-21] MEDS: Acetaminophen 500 MG Tablet 1000 MG PO ×2 (10:24→21:16)
--- NOTE | 2020-07-21 14:08 | CASEMGMT ---
Social Work Spoke with daughter to answer questions and discuss DC plans. Dtr stated pt must be able to transfer at [facility] to DC home with dtr. Dtr works 3 days/wk and is looking into to hiring more aides. Therapy updated. Dtr working on getting a patient a lift chair recliner at home as well. Offered continued assistance. WIll continue to follow. Kasia John, OCCUPATIONAL HYGIENIST PHOTOGRAPHIC DEVELOPER AND PRINTER
[2020-07-21 15:26] VITALS: BP 137/65; PULSE 53; RESP 16; TEMP 36.6; O2SAT 94
[2020-07-21] MEDS: Senna/Docusate Sodium 1 Tablet PO (17:26)
[2020-07-21] MEDS: Baclofen 10 MG Tablet PO (21:16)
[2020-07-21] MEDS: Atorvastatin Calcium 40 MG Tablet PO (21:16)
[2020-07-22 05:53] VITALS: BP 119/54; PULSE 55; RESP 16; TEMP 36.3; O2SAT 94
[2020-07-22 05:55] LABS: Hematocrit 36.3 % (37-47); Hemoglobin 11.2 g/dL (12.0-15.0); Mean Corp Hgb Conc 30.9 g/dL (32-36); Mean Corpuscular Hgb 29.1 pg (27.0-32.0); Mean Corpuscular Volume 94.3 fL (81-99); Platelet Count 271 K/mm3 (150-450); RBC Distribution Width CV 14.6 % (11.6-14.6); RBC Distribution Width SD 50.7 fl (35.1-43.9); Red Blood Count 3.85 M/mm3 (4.2-5.4)
[2020-07-22] MEDS: Carvedilol 12.5 MG Tablet PO ×2 (05:55→17:29)
[2020-07-22] MEDS: Isosorbide DN 30 MG Tablet PO ×2 (05:55→17:29)
[2020-07-22] MEDS: Senna/Docusate Sodium 1 Tablet PO ×2 (05:55→17:29)
[2020-07-22] MEDS: Furosemide 40 MG Tablet PO (05:55)
[2020-07-22] MEDS: Pantoprazole Sodium 40 MG Tablet PO (05:56)
[2020-07-22] MEDS: Enoxaparin 40 MG/0.4 ML Syringe SC (05:56)
[2020-07-22] MEDS: Nystatin Ointment 1 APPLIC TOPICAL ×2 (05:59→21:44)
[2020-07-22] MEDS: Menthol/Lanolin/Calamine/Znox 113 GM Tube 1 APPLIC TOPICAL ×2 (05:59→21:42)
[2020-07-22 06:38] LABS: Anion Gap 3 (5-15); BUN 84 mg/dL (7-18); BUN/Creat Ratio 56.4 RATIO (10-20); Calcium,Total 8.9 mg/dL (8.5-10.1); Chloride 102 mmol/L (98-107); Creatinine, Serum 1.49 mg/dL (0.55-1.02); EST Glomerular Filtration Rate 36 mL/min (>60); Est Glom Filt Rate - Afr Amer 43 mL/min (>60); Estimated Creatinine Clearance 29.77 ml/min; Glucose 169 mg/dL (74-106); Potassium 5.3 mmol/L (3.5-5.1); Sodium Level 137 mmol/L (136-145)
[2020-07-22] MEDS: Gabapentin 100 MG Capsule PO ×3 (08:45→17:29)
[2020-07-22] MEDS: Aspirin 81 MG TAB.CHEW PO (08:45)
[2020-07-22] MEDS: Naproxen 500 MG Tablet PO ×2 (08:45→17:29)
[2020-07-22] MEDS: Tuberculin,Purif.prot.deriv. 50 TU/ML Vial 5 ML ID (11:34)
[2020-07-22] MEDS: Acetaminophen 500 MG Tablet 1000 MG PO ×2 (11:35→21:44)
[2020-07-22 14:14] VITALS: BP 100/55; PULSE 54; RESP 18; TEMP 36.8; O2SAT 94
[2020-07-22] MEDS: Atorvastatin Calcium 40 MG Tablet PO (21:43)
[2020-07-22] MEDS: Baclofen 10 MG Tablet PO (21:43)
[2020-07-23 04:00] VITALS: BP 136/74; PULSE 52; RESP 18; TEMP 36.7; O2SAT 94
[2020-07-23] MEDS: Senna/Docusate Sodium 1 Tablet PO ×2 (06:58→17:01)
[2020-07-23] MEDS: Furosemide 40 MG Tablet PO (06:58)
[2020-07-23] MEDS: Isosorbide DN 30 MG Tablet PO ×2 (06:58→17:01)
[2020-07-23] MEDS: Pantoprazole Sodium 40 MG Tablet PO (06:58)
[2020-07-23] MEDS: Enoxaparin 40 MG/0.4 ML Syringe SC (06:58)
[2020-07-23] MEDS: Nystatin Ointment 1 APPLIC TOPICAL ×2 (06:59→20:50)
[2020-07-23] MEDS: Menthol/Lanolin/Calamine/Znox 113 GM Tube 1 APPLIC TOPICAL ×2 (06:59→20:48)
[2020-07-23] MEDS: Carvedilol 12.5 MG Tablet PO ×2 (06:59→17:01)
[2020-07-23] MEDS: Gabapentin 100 MG Capsule PO ×3 (08:55→17:01)
[2020-07-23] MEDS: Aspirin 81 MG TAB.CHEW PO (08:55)
[2020-07-23] MEDS: Naproxen 500 MG Tablet PO ×2 (08:55→17:00)
[2020-07-23] MEDS: Acetaminophen 500 MG Tablet 1000 MG PO ×2 (08:59→20:47)
[2020-07-23 14:45] VITALS: BP 121/49; PULSE 57; RESP 21; TEMP 36.4; O2SAT 92
[2020-07-23 16:41] VITALS: PULSE 51; RESP 18; O2SAT 92
[2020-07-23] MEDS: Baclofen 10 MG Tablet PO (20:46)
[2020-07-23] MEDS: Atorvastatin Calcium 40 MG Tablet PO (20:46)
[2020-07-24] MEDS: Pantoprazole Sodium 40 MG Tablet PO (05:45)
[2020-07-24] MEDS: Senna/Docusate Sodium 1 Tablet PO ×2 (05:45→17:13)
[2020-07-24] MEDS: Menthol/Lanolin/Calamine/Znox 113 GM Tube 1 APPLIC TOPICAL ×2 (05:45→20:48)
[2020-07-24] MEDS: Furosemide 40 MG Tablet PO (05:45)
[2020-07-24] MEDS: Isosorbide DN 30 MG Tablet PO ×2 (05:45→17:13)
[2020-07-24] MEDS: Carvedilol 12.5 MG Tablet PO ×2 (05:45→17:13)
[2020-07-24] MEDS: Enoxaparin 40 MG/0.4 ML Syringe SC (05:46)
[2020-07-24] MEDS: Nystatin Ointment 1 APPLIC TOPICAL ×2 (05:46→20:48)
[2020-07-24 05:56] VITALS: BP 138/62; PULSE 60; RESP 18; TEMP 36.6; O2SAT 93
[2020-07-24] MEDS: Naproxen 500 MG Tablet PO ×2 (08:12→17:13)
[2020-07-24] MEDS: Aspirin 81 MG TAB.CHEW PO (08:12)
[2020-07-24] MEDS: Gabapentin 100 MG Capsule PO ×3 (08:13→17:13)
[2020-07-24] MEDS: Acetaminophen 500 MG Tablet 1000 MG PO ×2 (10:11→20:46)
[2020-07-24 14:00] VITALS: BP 113/51; PULSE 65; RESP 18; TEMP 36.6; O2SAT 95
[2020-07-24] MEDS: Atorvastatin Calcium 40 MG Tablet PO (20:47)
[2020-07-24] MEDS: Baclofen 10 MG Tablet PO (20:47)
[2020-07-25 06:13] VITALS: BP 134/68; PULSE 65; RESP 18; TEMP 36.2; O2SAT 93
[2020-07-25] MEDS: Enoxaparin 40 MG/0.4 ML Syringe SC (06:15)
[2020-07-25] MEDS: Furosemide 40 MG Tablet PO (06:16)
[2020-07-25] MEDS: Pantoprazole Sodium 40 MG Tablet PO (06:16)
[2020-07-25] MEDS: Senna/Docusate Sodium 1 Tablet PO ×2 (06:16→17:10)
[2020-07-25] MEDS: Carvedilol 12.5 MG Tablet PO ×2 (06:16→17:09)
[2020-07-25] MEDS: Isosorbide DN 30 MG Tablet PO ×2 (06:16→17:10)
[2020-07-25] MEDS: Nystatin Ointment 1 APPLIC TOPICAL ×2 (06:17→20:22)
[2020-07-25] MEDS: Menthol/Lanolin/Calamine/Znox 113 GM Tube 1 APPLIC TOPICAL ×2 (06:17→20:22)
[2020-07-25] MEDS: Gabapentin 100 MG Capsule PO (08:28)
[2020-07-25] MEDS: Naproxen 500 MG Tablet PO (08:28)
[2020-07-25] MEDS: Aspirin 81 MG TAB.CHEW PO (08:28)
[2020-07-25 10:00] VITALS: PULSE 63; RESP 16; O2SAT 96
[2020-07-25] MEDS: Acetaminophen 500 MG Tablet 1000 MG PO ×2 (11:12→20:21)
[2020-07-25 13:41] VITALS: BP 104/47; PULSE 50; RESP 16; TEMP 36.2; O2SAT 92
--- NOTE | 2020-07-25 14:06 | CASEMGMT ---
Social Work Notified patient with [employer] 07/29 and continued stay is not guaranteed. Dtr has aides hired to pt to return home when ready and the home is w/c accessible. Will continue to follow. DEYSI Weeks
[2020-07-25] MEDS: Atorvastatin Calcium 40 MG Tablet PO (20:22)
[2020-07-26 06:10] VITALS: BP 125/66; PULSE 58; RESP 18; TEMP 36.5; O2SAT 94
[2020-07-26] MEDS: Enoxaparin 40 MG/0.4 ML Syringe SC (06:11)
[2020-07-26] MEDS: Senna/Docusate Sodium 1 Tablet PO ×2 (06:12→17:20)
[2020-07-26] MEDS: Isosorbide DN 30 MG Tablet PO ×2 (06:12→17:20)
[2020-07-26] MEDS: Carvedilol 12.5 MG Tablet PO ×2 (06:12→17:20)
[2020-07-26] MEDS: Furosemide 40 MG Tablet PO (06:12)
[2020-07-26] MEDS: Nystatin Ointment 1 APPLIC TOPICAL ×2 (06:13→21:41)
[2020-07-26] MEDS: Menthol/Lanolin/Calamine/Znox 113 GM Tube 1 APPLIC TOPICAL ×2 (06:13→21:41)
[2020-07-26] MEDS: Aspirin 81 MG TAB.CHEW PO (08:35)
[2020-07-26] MEDS: Acetaminophen 500 MG Tablet 1000 MG PO ×2 (10:29→21:40)
--- NOTE | 2020-07-26 11:56 | MDS.RN ---
Information for the mds was obtained from review of the clinical record, interview of resident, staff, and direct observation of resident's care.
[2020-07-26 13:24] VITALS: BP 110/49; PULSE 54; RESP 18; TEMP 36; O2SAT 94
[2020-07-26] MEDS: Atorvastatin Calcium 40 MG Tablet PO (21:40)
[2020-07-27 05:41] VITALS: BP 117/50; PULSE 59; RESP 18; TEMP 36.1; O2SAT 93
[2020-07-27] MEDS: Carvedilol 12.5 MG Tablet PO ×2 (05:42→16:52)
[2020-07-27] MEDS: Isosorbide DN 30 MG Tablet PO ×2 (05:42→16:52)
[2020-07-27] MEDS: Furosemide 40 MG Tablet PO (05:42)
[2020-07-27] MEDS: Enoxaparin 40 MG/0.4 ML Syringe SC (05:42)
[2020-07-27] MEDS: Senna/Docusate Sodium 1 Tablet PO ×2 (05:43→16:52)
[2020-07-27] MEDS: Menthol/Lanolin/Calamine/Znox 113 GM Tube 1 APPLIC TOPICAL ×2 (05:45→21:20)
[2020-07-27] MEDS: Nystatin Ointment 1 APPLIC TOPICAL ×2 (05:45→21:21)
[2020-07-27] MEDS: Aspirin 81 MG TAB.CHEW PO (08:00)
[2020-07-27 09:40] VITALS: RESP 16
[2020-07-27] MEDS: Acetaminophen 500 MG Tablet 1000 MG PO ×2 (11:04→21:20)
[2020-07-27 13:31] VITALS: BP 101/46; PULSE 54; RESP 20; TEMP 36.6; O2SAT 92
[2020-07-27] MEDS: Atorvastatin Calcium 40 MG Tablet PO (21:20)
[2020-07-28 04:00] VITALS: BP 132/54; PULSE 60; RESP 16; TEMP 36.9
[2020-07-28] MEDS: Isosorbide DN 30 MG Tablet PO ×2 (06:25→17:29)
[2020-07-28] MEDS: Carvedilol 12.5 MG Tablet PO ×2 (06:25→17:29)
[2020-07-28] MEDS: Enoxaparin 40 MG/0.4 ML Syringe SC (06:25)
[2020-07-28] MEDS: Furosemide 40 MG Tablet PO (06:25)
[2020-07-28] MEDS: Senna/Docusate Sodium 1 Tablet PO ×2 (06:25→17:28)
[2020-07-28] MEDS: Aspirin 81 MG TAB.CHEW PO (08:04)
[2020-07-28] MEDS: Nystatin Ointment 1 APPLIC TOPICAL ×2 (08:05→21:29)
[2020-07-28] MEDS: Menthol/Lanolin/Calamine/Znox 113 GM Tube 1 APPLIC TOPICAL ×2 (08:05→21:29)
[2020-07-28] MEDS: Acetaminophen 500 MG Tablet 1000 MG PO ×2 (10:16→21:26)
[2020-07-28 14:09] VITALS: BP 128/66; PULSE 74; RESP 16; TEMP 36.7; O2SAT 92
--- NOTE | 2020-07-28 16:25 | RAD_ITS ---
STUDY: X-RAY - ABDOMEN/PELVIS REASON FOR EXAM: Female, 79 years old. NAUSEA, BILATERAL LOWER EXTREMITY EDEMA TECHNIQUE: Abdomen COMPARISON: None. FINDINGS: Moderate stool burden. Nonobstructive bowel gas pattern. No evidence for free air. Diffuse degenerative osseous changes. Blunting of the bilateral costophrenic angles may indicate effusions. IMPRESSION: Prominent stool burden. No evidence for obstruction or free air. Blunting of the bilateral costophrenic angles may indicate effusions. Electronically Signed: Kishor Beasley, at 17:52 EDT Tel , Service support , RAD/Abdomen Single View
--- NOTE | 2020-07-28 17:04 | PCA ---
got charted wrong earlier
[2020-07-28 17:08] LABS: Absolute Lymphocyte Count 2.16 X10^3/uL (0.83-4.51); Absolute Neutrophil Count 5.5 X10^3/uL (2.0-7.7); Basophil# 0.08 X10^3/uL; Basophil% 0.8 % (0-1); Eosinophil# 0.64 X10^3/uL; Eosinophils% 6.8 % (0-5); Hemoglobin 12.4 g/dL (12.0-15.0); Lymphocyte # 2.16 X10^3/ul (4.0); Lymphocyte % 22.8 % (19-41); Mean Corpuscular Hgb 29.3 pg (27.0-32.0); Mean Corpuscular Volume 94.6 fL (81-99); Mean Platelet Vol. 10.7 fl (6.2-12.0); Monocyte# 0.97 X10^3/uL; Monocyte% 10.2 % (0-10); NRBC Flagged by Analyzer 0 % (0-5); Neutrophil # 5.46 X10^3/uL (2.7-7.7); Neutrophil % 57.7 % (47-70); Platelet Count 298 K/mm3 (150-450); RBC Distribution Width SD 52.4 fl (35.1-43.9); Red Blood Count 4.23 M/mm3 (4.2-5.4); White Blood Count 9.5 K/mm3 (4.4-11.0)
[2020-07-28 17:18] LABS: Anion Gap 3 (5-15); BUN 60 mg/dL (7-18); BUN/Creat Ratio 51.3 RATIO (10-20); Calcium,Total 9.8 mg/dL (8.5-10.1); Chloride 102 mmol/L (98-107); Creatinine, Serum 1.17 mg/dL (0.55-1.02); EST Glomerular Filtration Rate 47 mL/min (>60); Est Glom Filt Rate - Afr Amer 57 mL/min (>60); Estimated Creatinine Clearance 37.92 ml/min; Glucose 133 mg/dL (74-106); Potassium 5.5 mmol/L (3.5-5.1); Sodium Level 138 mmol/L (136-145)
--- NOTE | 2020-07-28 17:35 | NURSING ---
offered to call pt daughter for update, pt states she will call her.
[2020-07-28] MEDS: Lactulose 20 GM/30 ML UDC 200 GM RECTAL (18:20)
[2020-07-28] MEDS: Atorvastatin Calcium 40 MG Tablet PO (21:26)
[2020-07-28] MEDS: Sodium Polystyrene Sulfonate 15 GM/60 ML UDC 30 GM PO (21:27)
[2020-07-28 21:55] VITALS: O2SAT 98
[2020-07-29 05:33] LABS: Hematocrit 37.2 % (37-47); Hemoglobin 11.3 g/dL (12.0-15.0); Mean Corp Hgb Conc 30.4 g/dL (32-36); Mean Corpuscular Hgb 28.7 pg (27.0-32.0); Mean Corpuscular Volume 94.4 fL (81-99); Mean Platelet Vol. 10.5 fl (6.2-12.0); Platelet Count 264 K/mm3 (150-450); RBC Distribution Width SD 51.9 fl (35.1-43.9); Red Blood Count 3.94 M/mm3 (4.2-5.4); White Blood Count 9.6 K/mm3 (4.4-11.0)
[2020-07-29 05:49] LABS: Anion Gap 2 (5-15); BUN 53 mg/dL (7-18); BUN/Creat Ratio 53.9 RATIO (10-20); Calcium,Total 9.1 mg/dL (8.5-10.1); Chloride 104 mmol/L (98-107); Creatinine, Serum 0.98 mg/dL (0.55-1.02); EST Glomerular Filtration Rate 58 mL/min (>60); Est Glom Filt Rate - Afr Amer 70 mL/min (>60); Estimated Creatinine Clearance 45.27 ml/min; Glucose 150 mg/dL (74-106); Potassium 4.5 mmol/L (3.5-5.1); Sodium Level 140 mmol/L (136-145)
[2020-07-29 06:39] VITALS: BP 141/91; PULSE 71; RESP 18; TEMP 36.9; O2SAT 97
[2020-07-29] MEDS: Enoxaparin 40 MG/0.4 ML Syringe SC (06:47)
[2020-07-29] MEDS: Senna/Docusate Sodium 1 Tablet PO ×2 (06:47→17:10)
[2020-07-29] MEDS: Carvedilol 12.5 MG Tablet PO ×2 (06:47→17:11)
[2020-07-29] MEDS: Furosemide 40 MG Tablet PO (06:47)
[2020-07-29] MEDS: Isosorbide DN 30 MG Tablet PO ×2 (06:47→17:11)
[2020-07-29] MEDS: Menthol/Lanolin/Calamine/Znox 113 GM Tube 1 APPLIC TOPICAL ×2 (06:50→22:16)
[2020-07-29] MEDS: Nystatin Ointment 1 APPLIC TOPICAL ×2 (06:50→22:16)
[2020-07-29] MEDS: 0.9% Saline Lock 10 ML Syringe IV (06:52)
[2020-07-29] MEDS: Acetaminophen 500 MG Tablet 1000 MG PO ×2 (09:42→22:13)
[2020-07-29] MEDS: Aspirin 81 MG TAB.CHEW PO (09:42)
[2020-07-29 10:00] VITALS: O2SAT 97
[2020-07-29 14:06] VITALS: BP 134/71; PULSE 72; RESP 17; TEMP 36.6
[2020-07-29] MEDS: Atorvastatin Calcium 40 MG Tablet PO (22:13)
[2020-07-30 04:00] VITALS: BP 130/71; PULSE 72; RESP 16; TEMP 36.7; O2SAT 92
[2020-07-30] MEDS: Enoxaparin 40 MG/0.4 ML Syringe SC (06:47)
[2020-07-30] MEDS: Carvedilol 12.5 MG Tablet PO ×2 (06:50→17:30)
[2020-07-30] MEDS: Furosemide 40 MG Tablet PO (06:50)
[2020-07-30] MEDS: Senna/Docusate Sodium 1 Tablet PO ×2 (06:50→17:31)
[2020-07-30] MEDS: Isosorbide DN 30 MG Tablet PO ×2 (06:50→17:31)
[2020-07-30] MEDS: Acetaminophen 500 MG Tablet 1000 MG PO ×2 (06:50→21:09)
[2020-07-30] MEDS: 0.9% Saline Lock 10 ML Syringe IV (06:51)
[2020-07-30] MEDS: Menthol/Lanolin/Calamine/Znox 113 GM Tube 1 APPLIC TOPICAL ×2 (06:52→21:09)
[2020-07-30] MEDS: Nystatin Ointment 1 APPLIC TOPICAL ×2 (06:53→21:10)
[2020-07-30] MEDS: Aspirin 81 MG TAB.CHEW PO (08:19)
[2020-07-30 14:01] VITALS: BP 128/52; PULSE 69; RESP 16; TEMP 36.2; O2SAT 95
[2020-07-30] MEDS: Atorvastatin Calcium 40 MG Tablet PO (21:08)
[2020-07-30 21:18] VITALS: PULSE 64; RESP 18; O2SAT 92
[2020-07-31 04:00] VITALS: BP 135/67; PULSE 76; RESP 18; TEMP 36.8; O2SAT 94
[2020-07-31] MEDS: Furosemide 40 MG Tablet PO (05:57)
[2020-07-31] MEDS: Carvedilol 12.5 MG Tablet PO ×2 (05:57→18:48)
[2020-07-31] MEDS: Senna/Docusate Sodium 1 Tablet PO ×2 (05:57→17:22)
[2020-07-31] MEDS: Enoxaparin 40 MG/0.4 ML Syringe SC (05:57)
[2020-07-31] MEDS: Menthol/Lanolin/Calamine/Znox 113 GM Tube 1 APPLIC TOPICAL ×2 (05:57→22:18)
[2020-07-31] MEDS: Nystatin Ointment 1 APPLIC TOPICAL ×2 (06:00→22:21)
[2020-07-31] MEDS: Aspirin 81 MG TAB.CHEW PO (08:49)
[2020-07-31] MEDS: Isosorbide DN 30 MG Tablet PO ×2 (08:49→18:48)
[2020-07-31] MEDS: Acetaminophen 500 MG Tablet 1000 MG PO ×2 (11:11→22:17)
[2020-07-31 13:58] VITALS: BP 113/47; PULSE 70; RESP 16; TEMP 35.9; O2SAT 91
[2020-07-31] MEDS: 0.9% Saline Lock 10 ML Syringe IV (18:47)
[2020-07-31] MEDS: Atorvastatin Calcium 40 MG Tablet PO (22:18)
[2020-07-31 22:22] VITALS: RESP 16
[2020-08-01 04:00] VITALS: BP 144/75; PULSE 85; RESP 18; TEMP 36.6; O2SAT 95
[2020-08-01] MEDS: Carvedilol 12.5 MG Tablet PO ×2 (06:52→17:55)
[2020-08-01] MEDS: Senna/Docusate Sodium 1 Tablet PO ×2 (06:52→17:55)
[2020-08-01] MEDS: Furosemide 40 MG Tablet PO (06:52)
[2020-08-01] MEDS: Isosorbide DN 30 MG Tablet PO ×2 (06:52→17:55)
[2020-08-01] MEDS: Nystatin Ointment 1 APPLIC TOPICAL ×2 (06:52→22:00)
[2020-08-01] MEDS: Enoxaparin 40 MG/0.4 ML Syringe SC (06:53)
[2020-08-01] MEDS: Menthol/Lanolin/Calamine/Znox 113 GM Tube 1 APPLIC TOPICAL ×2 (06:53→22:00)
--- NOTE | 2020-08-01 07:13 | NURSING ---
Saline lock removed from left forearm catheter intact. No concerns voiced at this time.
[2020-08-01] MEDS: Aspirin 81 MG TAB.CHEW PO (07:56)
[2020-08-01] MEDS: Acetaminophen 500 MG Tablet 1000 MG PO ×2 (09:31→22:01)
[2020-08-01 09:33] VITALS: PULSE 64; RESP 16; O2SAT 94
[2020-08-01 15:13] VITALS: BP 121/56; PULSE 72; RESP 16; TEMP 36.1; O2SAT 93
[2020-08-01] MEDS: Atorvastatin Calcium 40 MG Tablet PO (22:01)
[2020-08-02 04:00] VITALS: BP 158/55; PULSE 71; RESP 18; TEMP 36.6; O2SAT 92
[2020-08-02] MEDS: Nystatin Ointment 1 APPLIC TOPICAL ×2 (05:03→21:48)
[2020-08-02] MEDS: Enoxaparin 40 MG/0.4 ML Syringe SC (05:03)
[2020-08-02] MEDS: Senna/Docusate Sodium 1 Tablet PO ×2 (05:03→17:10)
[2020-08-02] MEDS: Furosemide 40 MG Tablet PO (05:03)
[2020-08-02] MEDS: Isosorbide DN 30 MG Tablet PO ×2 (05:03→17:10)
[2020-08-02] MEDS: Carvedilol 12.5 MG Tablet PO ×2 (05:03→17:10)
[2020-08-02] MEDS: Menthol/Lanolin/Calamine/Znox 113 GM Tube 1 APPLIC TOPICAL ×2 (05:04→21:47)
[2020-08-02] MEDS: Aspirin 81 MG TAB.CHEW PO (07:49)
[2020-08-02] MEDS: Acetaminophen 500 MG Tablet 1000 MG PO ×2 (09:54→21:49)
[2020-08-02 14:09] VITALS: BP 125/61; PULSE 110; RESP 18; TEMP 36.6
--- NOTE | 2020-08-02 16:00 | NURSING ---
TALKED TO DAUGHTER AND UP DATED HER ON MOTHER.
[2020-08-02] MEDS: Atorvastatin Calcium 40 MG Tablet PO (21:47)
[2020-08-03 04:00] VITALS: BP 139/91; PULSE 60; RESP 18; TEMP 36.6; O2SAT 92
[2020-08-03] MEDS: Furosemide 40 MG Tablet PO (05:30)
[2020-08-03] MEDS: Carvedilol 12.5 MG Tablet PO ×2 (05:30→16:41)
[2020-08-03] MEDS: Isosorbide DN 30 MG Tablet PO ×2 (05:30→16:41)
[2020-08-03] MEDS: Senna/Docusate Sodium 1 Tablet PO ×2 (05:30→16:41)
[2020-08-03] MEDS: Enoxaparin 40 MG/0.4 ML Syringe SC (05:31)
[2020-08-03] MEDS: Menthol/Lanolin/Calamine/Znox 113 GM Tube 1 APPLIC TOPICAL ×2 (05:32→20:54)
[2020-08-03] MEDS: Nystatin Ointment 1 APPLIC TOPICAL ×2 (05:32→20:55)
[2020-08-03] MEDS: Aspirin 81 MG TAB.CHEW PO (07:36)
[2020-08-03] MEDS: Acetaminophen 500 MG Tablet 1000 MG PO ×2 (09:40→20:54)
[2020-08-03 09:42] VITALS: PULSE 73; RESP 18; O2SAT 95
[2020-08-03 14:38] VITALS: BP 136/59; PULSE 52; RESP 16; TEMP 36.7; O2SAT 94
--- NOTE | 2020-08-03 15:59 | CHAPLAIN ---
Type of Pastoral Visit ___ Initial Visit _x__ Follow-up Visit ___ On-call Visit ___ General Patient Visit ___ Spiritual Assessment ___ Family Conference ___ Bereavement ___ Rapid Response ___ Code Blue ___ Other (describe below) Pastoral Care Referral From _x__ Patient ___ Family ___ Nurse ___ Physician ___ Wood Pole Treater ___ Hvac Sheet Metal Installer Helper ___ Other (describe below) Sacrament/Intervention _x__ Active listening ___ Anointing ___ Gnosticist ___ Bereavement ___ Communion ___ Gwen exploration ___ _x__ Life review ___ Prayer ___ Reconciliation ___ Sacrament of Sick _x__ Supportive presence ___ Wedding ___ Other (describe below) Pastoral Comments
[2020-08-03] MEDS: Atorvastatin Calcium 40 MG Tablet PO (20:54)
[2020-08-04] MEDS: Carvedilol 12.5 MG Tablet PO ×2 (05:53→17:00)
[2020-08-04] MEDS: Furosemide 40 MG Tablet PO (05:53)
[2020-08-04] MEDS: Senna/Docusate Sodium 1 Tablet PO ×2 (05:53→17:01)
[2020-08-04] MEDS: Isosorbide DN 30 MG Tablet PO ×2 (05:54→17:01)
[2020-08-04] MEDS: Enoxaparin 40 MG/0.4 ML Syringe SC (05:55)
[2020-08-04] MEDS: Aspirin 81 MG TAB.CHEW PO (08:07)
[2020-08-04] MEDS: Menthol/Lanolin/Calamine/Znox 113 GM Tube 1 APPLIC TOPICAL ×2 (08:08→21:48)
[2020-08-04] MEDS: Nystatin Ointment 1 APPLIC TOPICAL ×2 (08:08→21:49)
[2020-08-04] MEDS: Acetaminophen 500 MG Tablet 1000 MG PO ×2 (10:25→21:47)
[2020-08-04 14:18] VITALS: BP 116/47; PULSE 62; RESP 14; TEMP 36.1; O2SAT 95
--- NOTE | 2020-08-04 15:18 | CASEMGMT ---
[employer] approved pt with NRD 08/11 and to anticipate [facility] with review. Will continue to follow. Kasia John MSW CRAS
[2020-08-04] MEDS: Atorvastatin Calcium 40 MG Tablet PO (21:47)
[2020-08-05 04:00] VITALS: BP 125/71; PULSE 64; RESP 16; TEMP 36.6; O2SAT 93
[2020-08-05] MEDS: Furosemide 40 MG Tablet PO (04:49)
[2020-08-05] MEDS: Enoxaparin 40 MG/0.4 ML Syringe SC (04:49)
[2020-08-05] MEDS: Carvedilol 12.5 MG Tablet PO ×2 (04:49→16:39)
[2020-08-05] MEDS: Isosorbide DN 30 MG Tablet PO ×2 (04:49→16:39)
[2020-08-05] MEDS: Senna/Docusate Sodium 1 Tablet PO ×2 (04:49→16:39)
[2020-08-05] MEDS: Polyethylene Glycol 3350 17 GM PACKET PO (04:49)
[2020-08-05 05:45] LABS: Hematocrit 36.9 % (37-47); Hemoglobin 10.9 g/dL (12.0-15.0); Mean Corp Hgb Conc 29.5 g/dL (32-36); Mean Corpuscular Hgb 28.5 pg (27.0-32.0); Mean Corpuscular Volume 96.3 fL (81-99); Mean Platelet Vol. 10.3 fl (6.2-12.0); Platelet Count 244 K/mm3 (150-450); RBC Distribution Width CV 14.8 % (11.6-14.6); RBC Distribution Width SD 52.4 fl (35.1-43.9); Red Blood Count 3.83 M/mm3 (4.2-5.4); White Blood Count 7.1 K/mm3 (4.4-11.0)
[2020-08-05 06:05] LABS: Anion Gap 3 (5-15); BUN 26 mg/dL (7-18); Chloride 103 mmol/L (98-107); Creatinine, Serum 0.87 mg/dL (0.55-1.02); EST Glomerular Filtration Rate 67 mL/min (>60); Est Glom Filt Rate - Afr Amer 81 mL/min (>60); Estimated Creatinine Clearance 50.99 ml/min; Glucose 132 mg/dL (74-106); Potassium 3.9 mmol/L (3.5-5.1); Sodium Level 138 mmol/L (136-145)
[2020-08-05] MEDS: Menthol/Lanolin/Calamine/Znox 113 GM Tube 1 APPLIC TOPICAL ×2 (06:24→21:42)
[2020-08-05] MEDS: Nystatin Ointment 1 APPLIC TOPICAL ×2 (06:24→21:42)
[2020-08-05] MEDS: Aspirin 81 MG TAB.CHEW PO (07:48)
[2020-08-05] MEDS: Acetaminophen 500 MG Tablet 1000 MG PO ×2 (09:53→21:39)
[2020-08-05 14:43] VITALS: BP 107/52; PULSE 62; RESP 16; TEMP 36.4; O2SAT 93
[2020-08-05] MEDS: Atorvastatin Calcium 40 MG Tablet PO (21:39)
[2020-08-06 04:27] VITALS: BP 147/64; PULSE 68; RESP 18; TEMP 36.8; O2SAT 96
[2020-08-06] MEDS: Enoxaparin 40 MG/0.4 ML Syringe SC (04:28)
[2020-08-06] MEDS: Senna/Docusate Sodium 1 Tablet PO ×2 (04:28→17:05)
[2020-08-06] MEDS: Carvedilol 12.5 MG Tablet PO ×2 (04:28→17:05)
[2020-08-06] MEDS: Isosorbide DN 30 MG Tablet PO ×2 (04:28→17:05)
[2020-08-06] MEDS: Furosemide 40 MG Tablet PO (04:28)
[2020-08-06] MEDS: Menthol/Lanolin/Calamine/Znox 113 GM Tube 1 APPLIC TOPICAL ×2 (04:31→20:19)
[2020-08-06] MEDS: Nystatin Ointment 1 APPLIC TOPICAL ×2 (04:31→20:24)
[2020-08-06] MEDS: Acetaminophen 500 MG Tablet 1000 MG PO ×2 (09:38→20:22)
[2020-08-06] MEDS: Aspirin 81 MG TAB.CHEW PO (09:39)
[2020-08-06 14:00] VITALS: BP 113/45; PULSE 58; RESP 18; TEMP 35.7; O2SAT 96
[2020-08-06] MEDS: Atorvastatin Calcium 40 MG Tablet PO (20:21)
[2020-08-07 06:30] VITALS: BP 134/81; PULSE 69; RESP 18; TEMP 36.1; O2SAT 92
[2020-08-07] MEDS: Enoxaparin 40 MG/0.4 ML Syringe SC (06:32)
[2020-08-07] MEDS: Furosemide 40 MG Tablet PO (06:33)
[2020-08-07] MEDS: Carvedilol 12.5 MG Tablet PO ×2 (06:33→17:35)
[2020-08-07] MEDS: Menthol/Lanolin/Calamine/Znox 113 GM Tube 1 APPLIC TOPICAL ×2 (06:33→22:00)
[2020-08-07] MEDS: Senna/Docusate Sodium 1 Tablet PO ×2 (06:33→17:35)
[2020-08-07] MEDS: Isosorbide DN 30 MG Tablet PO ×2 (06:33→17:35)
[2020-08-07] MEDS: Nystatin Ointment 1 APPLIC TOPICAL ×2 (06:49→22:00)
[2020-08-07] MEDS: Acetaminophen 500 MG Tablet 1000 MG PO ×2 (08:38→22:00)
[2020-08-07] MEDS: Aspirin 81 MG TAB.CHEW PO (08:38)
[2020-08-07 10:00] VITALS: PULSE 54; RESP 18; O2SAT 96
[2020-08-07 14:08] VITALS: BP 90/53; PULSE 65; RESP 17; TEMP 36.6; O2SAT 93
[2020-08-07] MEDS: Atorvastatin Calcium 40 MG Tablet PO (22:00)
[2020-08-08] MEDS: Enoxaparin 40 MG/0.4 ML Syringe SC (06:13)
[2020-08-08] MEDS: Carvedilol 12.5 MG Tablet PO ×2 (06:13→17:56)
[2020-08-08] MEDS: Furosemide 40 MG Tablet PO (06:13)
[2020-08-08] MEDS: Isosorbide DN 30 MG Tablet PO ×2 (06:13→17:56)
[2020-08-08] MEDS: Senna/Docusate Sodium 1 Tablet PO (06:13)
[2020-08-08] MEDS: Menthol/Lanolin/Calamine/Znox 113 GM Tube 1 APPLIC TOPICAL ×2 (06:14→21:30)
[2020-08-08] MEDS: Nystatin Ointment 1 APPLIC TOPICAL ×2 (06:15→21:31)
[2020-08-08 06:43] VITALS: BP 145/77; PULSE 78; RESP 18; TEMP 20; O2SAT 98
[2020-08-08] MEDS: Aspirin 81 MG TAB.CHEW PO (07:57)
[2020-08-08] MEDS: Acetaminophen 500 MG Tablet 1000 MG PO ×2 (09:55→21:29)
[2020-08-08 09:56] VITALS: PULSE 52; RESP 16; O2SAT 95
[2020-08-08 14:23] VITALS: BP 117/64; PULSE 63; RESP 16; TEMP 36.1; O2SAT 94
--- NOTE | 2020-08-08 20:54 | PN_ITS ---
Subjective: Resident seen for regulatory visit. She is sitting in chair in her room. She continues to have numbness in her proximal thighs, groin, but she is progressing well in therapy. Vitals/I&O's: Vital Signs Temp Pulse Resp BP Pulse Ox 97.0 F L 63 16 117/64 94 08/08/20 14:23 08/08/20 14:23 08/08/20 14:23 08/08/20 14:23 08/08/20 14:23 Oxygen Delivery Method Room Air Weight: 115.802 kg Body Mass Index (BMI) 41.1 Intake and Output for Last 24 Hours 08/06/20 08/07/20 08/08/20 23:59 23:59 23:59 Intake Total 720 / 720 520 / 520 270 / 270 Balance 720 / 720 520 / 520 270 / 270 Past Medical History Past Medical History (Chronic Problems): Chronic Problems (Last Reviewed 07/12/20 @ 00:[address] Hay Leavitt MD) Edema (Chronic) Venous stasis dermatitis (Chronic) Coronary artery disease (Chronic) Chronic systolic (congestive) heart failure (Chronic) Hyperlipidemia (Chronic) Medical History: Medical History (Last Reviewed 07/12/20 @ 00:[address] Hay Leavitt MD) CHF (congestive heart failure) I50.9 Myocardial infarct I21.9 Allergies No Known Allergies Allergy (Verified 07/14/20 16:03) Home Medications: Ambulatory Orders Medication Instructions Recorded Acetaminophen [Tylenol] 500 - 1,000 mg PO Q6H PRN PRN 07/11/20 Aspirin, Baby 81 mg PO DAILY 07/11/20 Carvedilol [Coreg] 12.5 mg PO BID 07/11/20 Isosorbide Dinitrate 30 mg PO BID 07/11/20 Lisinopril [Zestril] 5 mg PO DAILY 07/11/20 Multivit-Min/Iron/Folic Acid/K 1 ea PO DAILY 07/11/20 [One Daily Women's Multivitamin] [place]-3 Fatty Acids/Fish Oil [Fish 1 ea PO QODAY 07/11/20 Oil 1,000 mg Capsule] Rosuvastatin Calcium 20 mg PO QHS 07/11/20 Bisacodyl [Dulcolax] 5 mg PO DAILY PRN tab 07/14/20 Ergocalciferol [Vitamin D] 50,000 unit PO Q7D@1000 07/14/20 Furosemide [Lasix] 40 mg PO DAILY 07/14/20 Nystatin [Mycostatin] 1 applic TOPICAL BID 07/14/20 Potassium Chloride [K-Dur] 10 meq PO DAILY 07/14/20 Surgical History: coronary bypass surgery - x 4., - Psychiatric History: No pertinent psych hx DIRECTOR OF SCOUT WORK History: No pertinent DIRECTOR OF SCOUT WORK history Lives: With Family - Daughter lives with her. Smoking Status: Former smoker Tobacco Use: Non-smoker Alcohol: None Drugs: None - *Family History Maternal History Items: - - Aneurysms Paternal History Items: Heart Disease Capacity - Capacity Assessment Tool Can the patient make a choice & communicate that choice?: Yes Can the patient understand benefits, risks and alternatives?: Yes Can the patient make a logical, rational choice?: Yes Is the choice the patient makes consistent w/ their values?: No Is there an impending, emergent risk to the patient?: No Does the patient have an Advance Directive?: No Is there a Surrogate Available?: Yes i.e. HCPOA: Yes i.e. close relative (spouse, child, parent, sibling)?: Yes Review of Systems Constitutional: Denies: Chills, Fever, Weight Change HEENT: Denies: Head Aches, Sinus Congestion, Sinus Drainage Cardiovascular: Denies: Chest Pain, Palpitations Respiratory: Denies: Cough, Shortness of breath at rest, Sputum production Gastrointestinal: Denies: Abdominal Pain, Nausea, Vomiting Genitourinary: Denies: Dysuria Musculoskeletal: Denies: Joint Pain, Joint Tenderness Skin: Denies: Rash, Wounds Neurological: Denies: Numbness, Tingling, Focal weakness Psychiatric: Denies: Anxiety, Depression, Homicidal Ideations, Suicidal Ideati ons Hematologic/ Lymphatic: Denies: Easy Bruising, Easy Bleeding Patient Problems: Active and Suspected Problems (Last Reviewed 07/12/20 @ 00:[address] Hay Leavitt MD) Debility (Acute) Gait difficulty (Acute) Lumbar spinal stenosis (Acute) Lumbar radiculopathy (Acute) - Physical Exam Vitals/I&O's: Vital Signs Temp Pulse Resp BP Pulse Ox 97.0 F L 63 16 117/64 94 08/08/20 14:23 08/08/20 14:23 08/08/20 14:23 08/08/20 14:23 08/08/20 14:23 Oxygen Delivery Method Room Air Weight: 115.802 kg Body Mass Index (BMI) 41.1 Intake and Output for Last 24 Hours 08/06/20 08/07/20 08/08/20 23:59 23:59 23:59 Intake Total 720 / 720 520 / 520 270 / 270 Balance 720 / 720 520 / 520 270 / 270 General: Alert, Oriented x3, Cooperative HEENT: Atraumatic, PERRLA, EOMI, Normocephalic Neck: Supple, No JVD, Negative Carotid Bruits Lungs: Clear to auscultation, Normal air movement Cardiovascular: Regular rate, No murmurs Abdomen: Bowel Sounds Present, Soft, Non Tender Extremities: No edema, Capillary Refill Less than 3 Seconds Skin: No rashes, No breakdown Musculoskeletal: No Tenderness to Palpation of Joints or Extremities Neurological: Cranial nerves II-XII grossly intact Psych/Mental Status: Normal Affect, Appropriate Current Medications Acetaminophen (Tylenol) 1,000 mg PO [facility] Last Admin: 08/08/20 09:55 Dose: 1,000 mg Documented by: Acetaminophen (Tylenol) 1,000 mg PO QHS [facility] Last Admin: 08/07/20 22:00 Dose: 1,000 mg Documented by: Aspirin (Aspirin, Baby) 81 mg PO DAILY@0800 [facility] Last Admin: 08/08/20 07:57 Dose: 81 mg Documented by: Atorvastatin Calcium (Lipitor) 40 mg PO QHS [facility] Last Admin: 08/07/20 22:00 Dose: 40 mg Documented by: Bisacodyl (Dulcolax) 10 mg RECTAL DAILY PRN PRN Reason: Constipation Calamine/Phenol (Calmoseptine Ointment) 1 applic TOPICAL BID@0600,2200 [facility]; Protocol Last Admin: 08/08/20 06:14 Dose: 1 applicatio Documented by: Carvedilol (Coreg) 12.5 mg PO BID [facility] Last Admin: 08/08/20 17:56 Dose: 12.5 mg Documented by: Enoxaparin Sodium (Lovenox) 40 mg SC DAILY@0600 [facility] Last Admin: 08/08/20 06:13 Dose: 40 mg Documented by: Furosemide (Lasix) 40 mg PO DAILY [facility] Last Admin: 08/08/20 06:13 Dose: 40 mg Documented by: Isosorbide Dinitrate (Isordil) 30 mg PO BID [facility] Last Admin: 08/08/20 17:56 Dose: 30 mg Documented by: Nystatin (Mycostatin) 1 applic TOPICAL BID@0600,2200 [facility]; Protocol Last Admin: 08/08/20 06:15 Dose: 1 applicatio Documented by: Oxycodone HCl (Oxyir) 2.5 mg PO Q4H PRN PRN PRN Reason: Pain Score 4-10/10 Polyethylene Glycol (Miralax) 17 gm PO DAILY [facility] Last Admin: 08/08/20 06:15 Dose: Not Given Documented by: Senna/Docusate Sodium (Senokot-S, Mirian-Colace) 1 tablet PO BID [facility] Last Admin: 08/08/20 17:56 Dose: Not Given Documented by: Sodium Chloride () 10 - 40 ml IV UD PRN PRN Reason: SALINE FLUSH Last Admin: 07/31/20 18:47 Dose: 10 ml Documented by: Assessment/Plan All Active Problems (Last Reviewed 07/12/20 @ 00:[address] Hay Leavitt MD) Difficulty walking (Acute) Debility (Acute) Gait difficulty (Acute) Lumbar spinal stenosis (Acute) Lumbar radiculopathy (Acute) 79 year old female with below past medical history hospitalized for gait difficulty due to lumbar spinal stenosis, lumbar radiculopathy, admitted to TCU with debility, here for rehabilitation, strengthening, prior to discharge home with family. * Debility - PT/OT. * Pain - Tylenol 1000MG BID, Oxycodone 2.5MG Q4H PRN pain (4-10). * Bowel - Miralax 17GM daily, Senna/colace 1 tablet BID, Dulcolax 10MG ND daily PRN. * Adult immunization - Administer Prevnar 13, Pneumovax 23, Fluzone as appropriate. * DVT prophylaxis - Lovenox 40MG SC daily. * Coronary Artery Disease - Coreg 12.5MG BID, Isosorbide 30MG BID, Aspirin 81MG daily. * Hyperlipidemia - Atorvastatin 40MG QHS. * Chronic systolic congestive heart failure - Coreg 12.5MG BID, Isosorbide 30MG BID, Lasix 40MG daily, Consider transitioning from Lisinopril to Entresto for better quality of life. * Skin irritation - Calmoseptine BID. * Tinea Corporis - Nystatin powder topical BID.
[2020-08-08] MEDS: Atorvastatin Calcium 40 MG Tablet PO (21:29)
[2020-08-09 05:53] VITALS: BP 159/60; PULSE 69; RESP 18; TEMP 36.6; O2SAT 95
[2020-08-09] MEDS: Isosorbide DN 30 MG Tablet PO ×2 (05:56→16:53)
[2020-08-09] MEDS: Furosemide 40 MG Tablet PO (05:56)
[2020-08-09] MEDS: Carvedilol 12.5 MG Tablet PO ×2 (05:56→16:53)
[2020-08-09] MEDS: Menthol/Lanolin/Calamine/Znox 113 GM Tube 1 APPLIC TOPICAL ×2 (05:56→21:25)
[2020-08-09] MEDS: Enoxaparin 40 MG/0.4 ML Syringe SC (05:57)
[2020-08-09] MEDS: Nystatin Ointment 1 APPLIC TOPICAL ×2 (05:58→21:24)
[2020-08-09] MEDS: Senna/Docusate Sodium 1 Tablet PO (05:58)
[2020-08-09] MEDS: Aspirin 81 MG TAB.CHEW PO (07:35)
[2020-08-09] MEDS: Acetaminophen 500 MG Tablet 1000 MG PO ×2 (08:42→21:24)
[2020-08-09 13:53] VITALS: BP 105/45; PULSE 60; RESP 17; TEMP 35.9; O2SAT 94
--- NOTE | 2020-08-09 15:30 | NURSING ---
pt stated she up dates daughter
[2020-08-09] MEDS: Atorvastatin Calcium 40 MG Tablet PO (21:24)
[2020-08-09 22:05] VITALS: O2SAT 97
[2020-08-10] MEDS: Senna/Docusate Sodium 1 Tablet PO ×2 (06:27→17:18)
[2020-08-10] MEDS: Isosorbide DN 30 MG Tablet PO ×2 (06:27→17:18)
[2020-08-10] MEDS: Carvedilol 12.5 MG Tablet PO ×2 (06:27→17:18)
[2020-08-10] MEDS: Nystatin Ointment 1 APPLIC TOPICAL ×2 (06:27→20:51)
[2020-08-10] MEDS: Enoxaparin 40 MG/0.4 ML Syringe SC (06:27)
[2020-08-10] MEDS: Furosemide 40 MG Tablet PO (06:27)
[2020-08-10] MEDS: Menthol/Lanolin/Calamine/Znox 113 GM Tube 1 APPLIC TOPICAL ×2 (06:32→20:51)
[2020-08-10] MEDS: Aspirin 81 MG TAB.CHEW PO (07:57)
[2020-08-10] MEDS: Acetaminophen 500 MG Tablet 1000 MG PO ×2 (09:28→20:51)
[2020-08-10 10:00] VITALS: PULSE 63; RESP 18; O2SAT 93
[2020-08-10 14:11] VITALS: BP 112/51; PULSE 62; RESP 18; TEMP 36.6; O2SAT 96
--- NOTE | 2020-08-10 14:42 | NURSING ---
pt stated she up dates daughter and she had visit today.
[2020-08-10] MEDS: Atorvastatin Calcium 40 MG Tablet PO (20:51)
[2020-08-11] MEDS: Nystatin Ointment 1 APPLIC TOPICAL ×2 (06:03→21:37)
[2020-08-11] MEDS: Senna/Docusate Sodium 1 Tablet PO ×2 (06:03→17:17)
[2020-08-11] MEDS: Furosemide 40 MG Tablet PO (06:03)
[2020-08-11] MEDS: Enoxaparin 40 MG/0.4 ML Syringe SC (06:03)
[2020-08-11] MEDS: Carvedilol 12.5 MG Tablet PO ×2 (06:03→17:17)
[2020-08-11] MEDS: Isosorbide DN 30 MG Tablet PO ×2 (06:03→17:18)
[2020-08-11] MEDS: Menthol/Lanolin/Calamine/Znox 113 GM Tube 1 APPLIC TOPICAL ×2 (06:05→21:40)
[2020-08-11 06:07] VITALS: BP 130/60; PULSE 65; RESP 18; TEMP 36.6; O2SAT 98
[2020-08-11] MEDS: Aspirin 81 MG TAB.CHEW PO (07:58)
[2020-08-11] MEDS: Acetaminophen 500 MG Tablet 1000 MG PO ×2 (09:53→21:38)
[2020-08-11 09:55] VITALS: PULSE 70; RESP 18; O2SAT 90
[2020-08-11 14:12] VITALS: BP 123/52; PULSE 60; RESP 16; TEMP 36; O2SAT 97
--- NOTE | 2020-08-11 15:57 | CASEMGMT ---
Social Work Insurance issued LCD 08/13, [place] 08/14. Notified pt and she expressed concern about having aides from 5-10 pm 3 days/wk when her dtr works. Inquired about braided band assembler list that SW provided to pt and dtr several weeks ago. Pt stated the dtr was the one to be contacting those agencies. Explained SW to order skilled HHC PT/OT/SN/[facility] but that is short term and will not be there during those evening hours. SW inquired about nonskilled aides because dtr and pt told SW aides have been secured. Pt stated she didn't like who dtr first hired but has not heard if her dtr found anyone else. Spoke to dtr on the phone about using that nonskilled HH list to contact agencies. Dtr understood. Pt mentioned [employer] and [employer]. Explained SW can be ordered to [facility] to assist. Pt agreeable to [facility]. Referral made. Referral made to [facility] for FWW. Dtr to transport pt. Plan: DC home with dtr 08/14 with [facility] PT/OT/SN/[facility]/SW, [employer] - FWW. Kasia John, DEYSI SOCIAL SERVICES ANALYST
--- NOTE | 2020-08-11 21:05 | DCINST_ITS ---
- Discharge Diagnoses Current Active Problems: Current Active and Chronic Problems (Last Reviewed 07/12/20 @ 00:[address] Hay Leavitt MD) Debility (Acute) Gait difficulty (Acute) Edema (Chronic) Venous stasis dermatitis (Chronic) Lumbar spinal stenosis (Acute) Lumbar radiculopathy (Acute) Coronary artery disease (Chronic) Chronic systolic (congestive) heart failure (Chronic) Hyperlipidemia (Chronic) You will use the following diet at home:: No restrictions, Regular Your food should be the consistency of: Regular Your liquids should be the consistency of: Regular/Thin Discharge Activity: Return to Normal Activity, May Shower, Use Walker Weight Bearing Status: Weight bearing as tolerated Call your doctor if you observe: Fever of 101 or Higher, Inability to urinate, Inability to have a bowel movement, Shortness of breath, Chest pain, Uncontrolled pain Allergies/Adverse Reactions: Allergies No Known Allergies Allergy (Verified 07/14/20 16:03) Medications to take at Discharge Aspirin, Baby 81 mg PO DAILY 07/11/20 Carvedilol [Coreg] 12.5 mg PO BID 07/11/20 Isosorbide Dinitrate 30 mg PO BID 07/11/20 Rosuvastatin Calcium 20 mg PO QHS 07/11/20 Nystatin [Mycostatin] 1 applic TOPICAL BID 07/14/20 Acetaminophen [Tylenol] 1,000 mg PO QAM tab 08/11/20 Acetaminophen [Tylenol] 1,000 mg PO QHS tab 08/11/20 Furosemide [Lasix] 40 mg PO DAILY #30 tab 08/11/20 Menthol/Lanolin/Calamine/Znox [Calmoseptine Ointment] 1 applic TOPICAL BID@0600,2200 tube 08/11/20 The following prescriptions were given: Furosemide [Lasix] 40 mg PO DAILY #30 tab Transmission Status: Pending to [facility]/pharmacy #[id number] Primary Care Physician: Iban Starr DO [Primary Care Provider] - Please follow up with your Primary Care Physician in: WITHIN 2 WEEKS Test Results: Test results from this visit will be discussed in further detail at your follow- up appointment, if applicable. Please Follow Up With: DR. IBAN STARR When: WITHIN 2 WEEKS AFTER DISCHARGE Proposed Discharge Date: 08/15/20
--- NOTE | 2020-08-11 21:07 | DS.PCM_ITS ---
Discharge Date and Diagnosis - Problem List Patient Problems: Active and Suspected Problems (Last Reviewed 07/12/20 @ 00:[address] Hay Leavitt MD) Debility (Acute) Gait difficulty (Acute) Lumbar spinal stenosis (Acute) Lumbar radiculopathy (Acute) Date of Admission: 07/14/20 Date of Discharge: 08/15/20 - Primary Discharge Diagnosis Acute Problems: Active Problems (Last Reviewed 07/12/20 @ 00:[address] Hay Leavitt MD) Debility (Acute) Gait difficulty (Acute) Lumbar spinal stenosis (Acute) Lumbar radiculopathy (Acute) - Secondary Discharge Diagnosis Chronic Problems: Chronic Problems (Last Reviewed 07/12/20 @ 00:[address] Hay Leavitt MD) Edema (Chronic) Venous stasis dermatitis (Chronic) Coronary artery disease (Chronic) Chronic systolic (congestive) heart failure (Chronic) Hyperlipidemia (Chronic) Hospital Course and Treatment Imaging Results: 07/14/20 15:45 Diet: Cardiac - Heart Healthy Food consistency:: Regular Liquid Consistency:: Regular/Thin Is pt able to select menu?: Yes Fluid restriction:: 1500 mL Diet Comments: SODIUM RESTRICTED, POTASSIUM RESTRICTED. Clinical Impression(s) from Imaging Studies Lumbar Spine X-Ray 07/14/20 21:15 IMPRESSION: Degenerative changes of the spine, as detailed above. Electronically Signed: Beata Dial, at 9:35 EDT Tel , Service support , KUB X-Ray 07/28/20 16:25 Operations: None Procedures: None Summary of Care Provided: The patient is a 79 year old Female with below past medical history hospitalized for gait difficulty due to lumbar spinal stenosis, lumbar radiculopathy, admitted to TCU with debility, here for rehabilitation, strengthening, prior to discharge home with family. Consider MRI LS spine as outpatient, referral for lumbar epidural steroid injection. 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 Patient Problems: Active and Suspected Problems (Last Reviewed 07/12/20 @ 00:[address] Hay Leavitt MD) Debility (Acute) Gait difficulty (Acute) Lumbar spinal stenosis (Acute) Lumbar radiculopathy (Acute) - Physical Exam Vitals/I&O's: Vital Signs Temp Pulse Resp BP Pulse Ox 96.8 F L 60 16 123/52 H 97 08/11/20 14:12 08/11/20 14:12 08/11/20 14:12 08/11/20 14:12 08/11/20 14:12 Oxygen Delivery Method Room Air Weight: 116.176 kg Body Mass Index (BMI) 41.1 Intake and Output for Last 24 Hours 08/09/20 08/10/20 08/11/20 23:59 23:59 23:59 Intake Total 370 / 370 1200 / 1200 480 / 480 Balance 370 / 370 1200 / 1200 480 / 480 Current Medications Acetaminophen (Tylenol) 1,000 mg PO QAM [facility] Last Admin: 08/11/20 09:53 Dose: 1,000 mg Documented by: Acetaminophen (Tylenol) 1,000 mg PO QHS [facility] Last Admin: 08/10/20 20:51 Dose: 1,000 mg Documented by: Aspirin (Aspirin, Baby) 81 mg PO DAILY@0800 [facility] Last Admin: 08/11/20 07:58 Dose: 81 mg Documented by: Atorvastatin Calcium (Lipitor) 40 mg PO QHS [facility] Last Admin: 08/10/20 20:51 Dose: 40 mg Documented by: Bisacodyl (Dulcolax) 10 mg RECTAL DAILY PRN PRN Reason: Constipation Calamine/Phenol (Calmoseptine Ointment) 1 applic TOPICAL BID@0600,2200 [facility]; Protocol Last Admin: 08/11/20 06:05 Dose: 1 applicatio Documented by: Carvedilol (Coreg) 12.5 mg PO BID [facility] Last Admin: 08/11/20 17:17 Dose: 12.5 mg Documented by: Enoxaparin Sodium (Lovenox) 40 mg SC DAILY@0600 [facility] Last Admin: 08/11/20 06:03 Dose: 40 mg Documented by: Furosemide (Lasix) 40 mg PO DAILY [facility] Last Admin: 08/11/20 06:03 Dose: 40 mg Documented by: Influenza Virus Vaccine Quadrival (Flucelvax /Fluzone ) 0.5 ml IM .ONCE ONE Stop: 08/12/20 10:01 Isosorbide Dinitrate (Isordil) 30 mg PO BID [facility] Last Admin: 08/11/20 17:18 Dose: 30 mg Documented by: Nystatin (Mycostatin) 1 applic TOPICAL BID@0600,2200 [facility]; Protocol Last Admin: 08/11/20 06:03 Dose: 1 applicatio Documented by: Oxycodone HCl (Oxyir) 2.5 mg PO Q4H PRN PRN PRN Reason: Pain Score 4-10/10 Polyethylene Glycol (Miralax) 17 gm PO DAILY [facility] Last Admin: 08/11/20 06:04 Dose: Not Given Documented by: Senna/Docusate Sodium (Senokot-S, Mirian-Colace) 1 tablet PO BID [facility] Last Admin: 08/11/20 17:17 Dose: 1 tablet Documented by: Sodium Chloride () 10 - 40 ml IV UD PRN PRN Reason: SALINE FLUSH Last Admin: 07/31/20 18:47 Dose: 10 ml Documented by: Discharge Diet: No Restrictions Discharge Activity: Return to Normal Activity, May Shower, Use Walker Weight Bearing Status: Weight bearing as tolerated Call your doctor if you observe: Fever of 101 or Higher, Inability to urinate, Inability to have a bowel movement, Shortness of breath, Chest pain, Uncontrolled pain Home Medications: Medications to take at Discharge Aspirin, Baby 81 mg PO DAILY 07/11/20 Carvedilol [Coreg] 12.5 mg PO BID 07/11/20 Isosorbide Dinitrate 30 mg PO BID 07/11/20 Rosuvastatin Calcium 20 mg PO QHS 07/11/20 Nystatin [Mycostatin] 1 applic TOPICAL BID 07/14/20 Acetaminophen [Tylenol] 1,000 mg PO QAM tab 08/11/20 Acetaminophen [Tylenol] 1,000 mg PO QHS tab 08/11/20 Furosemide [Lasix] 40 mg PO DAILY #30 tab 08/11/20 Menthol/Lanolin/Calamine/Znox [Calmoseptine Ointment] 1 applic TOPICAL BID@0600,2200 tube 08/11/20 Following Prescriptions Were Given to Patient: Furosemide [Lasix] 40 mg PO DAILY #30 tab Transmission Status: Pending to [facility]/pharmacy #[id number] Primary Care Physician: Corina Starr DO [Primary Care Provider] - Please follow up with your Primary Care Physician in: WITHIN 2 WEEKS Please Follow Up With: DR. CORINA STARR When: WITHIN 2 WEEKS AFTER DISCHARGE Disposition: Home with Home Health Minutes spent on discharge:: 35 Patient Condition:: Stable Medical Necessity - Tobacco Use Smoking Status: Former smoker Tobacco Use: Non-smoker Meaningful Use Info Meaningful Use Diagnoses (Choose all that apply): None applicable
[2020-08-11] MEDS: Atorvastatin Calcium 40 MG Tablet PO (21:39)
[2020-08-12 04:00] VITALS: BP 125/57; PULSE 60; RESP 16; TEMP 36.6; O2SAT 95
[2020-08-12 05:52] LABS: Hematocrit 34.9 % (37-47); Hemoglobin 10.6 g/dL (12.0-15.0); Mean Corp Hgb Conc 30.4 g/dL (32-36); Mean Corpuscular Hgb 28.6 pg (27.0-32.0); Mean Corpuscular Volume 94.3 fL (81-99); Mean Platelet Vol. 10.6 fl (6.2-12.0); Platelet Count 247 K/mm3 (150-450); RBC Distribution Width CV 14.6 % (11.6-14.6); RBC Distribution Width SD 51.1 fl (35.1-43.9); White Blood Count 7.9 K/mm3 (4.4-11.0)
[2020-08-12 06:10] LABS: Anion Gap 7 (5-15); BUN 28 mg/dL (7-18); BUN/Creat Ratio 30.9 RATIO (10-20); Calcium,Total 9.1 mg/dL (8.5-10.1); Chloride 104 mmol/L (98-107); Creatinine, Serum 0.91 mg/dL (0.55-1.02); EST Glomerular Filtration Rate 64 mL/min (>60); Est Glom Filt Rate - Afr Amer 77 mL/min (>60); Estimated Creatinine Clearance 48.75 ml/min; Glucose 132 mg/dL (74-106); Potassium 4.3 mmol/L (3.5-5.1); Sodium Level 141 mmol/L (136-145)
[2020-08-12] MEDS: Enoxaparin 40 MG/0.4 ML Syringe SC (06:41)
[2020-08-12] MEDS: Senna/Docusate Sodium 1 Tablet PO ×2 (06:42→17:33)
[2020-08-12] MEDS: Isosorbide DN 30 MG Tablet PO ×2 (06:42→17:33)
[2020-08-12] MEDS: Furosemide 40 MG Tablet PO (06:42)
[2020-08-12] MEDS: Carvedilol 12.5 MG Tablet PO ×2 (06:47→17:33)
[2020-08-12] MEDS: Menthol/Lanolin/Calamine/Znox 113 GM Tube 1 APPLIC TOPICAL ×2 (06:49→22:15)
[2020-08-12] MEDS: Nystatin Ointment 1 APPLIC TOPICAL ×2 (06:49→22:15)
[2020-08-12] MEDS: Aspirin 81 MG TAB.CHEW PO (07:58)
[2020-08-12] MEDS: Acetaminophen 500 MG Tablet 1000 MG PO ×2 (10:18→22:14)
--- NOTE | 2020-08-12 13:32 | CASEMGMT ---
Social Work BIMS and PHQ-9 completed for MDS assessment. Kasia John, STAFF COUNSELOR THERMODYNAMIC PHYSICIST
[2020-08-12 14:07] VITALS: BP 118/58; PULSE 80; RESP 18; TEMP 36.5; O2SAT 93
[2020-08-12] MEDS: Atorvastatin Calcium 40 MG Tablet PO (22:14)
[2020-08-13] MEDS: Enoxaparin 40 MG/0.4 ML Syringe SC (06:29)
[2020-08-13] MEDS: Isosorbide DN 30 MG Tablet PO ×2 (06:29→17:31)
[2020-08-13] MEDS: Furosemide 40 MG Tablet PO (06:29)
[2020-08-13] MEDS: Senna/Docusate Sodium 1 Tablet PO ×2 (06:29→17:31)
[2020-08-13] MEDS: Carvedilol 12.5 MG Tablet PO ×2 (06:29→17:31)
[2020-08-13] MEDS: Menthol/Lanolin/Calamine/Znox 113 GM Tube 1 APPLIC TOPICAL ×2 (06:31→21:44)
[2020-08-13] MEDS: Nystatin Ointment 1 APPLIC TOPICAL ×2 (06:31→21:46)
[2020-08-13 06:32] VITALS: BP 122/69; PULSE 65; RESP 17; TEMP 36.9; O2SAT 97
[2020-08-13] MEDS: Aspirin 81 MG TAB.CHEW PO (08:02)
[2020-08-13] MEDS: Acetaminophen 500 MG Tablet 1000 MG PO ×2 (09:19→21:46)
[2020-08-13 14:05] VITALS: BP 134/55; PULSE 57; RESP 16; TEMP 36.2; O2SAT 96
[2020-08-13] MEDS: Atorvastatin Calcium 40 MG Tablet PO (21:45)
[2020-08-14 04:00] VITALS: BP 156/81; PULSE 70; RESP 18; TEMP 36.6; O2SAT 96
[2020-08-14] MEDS: Enoxaparin 40 MG/0.4 ML Syringe SC (06:56)
[2020-08-14] MEDS: Carvedilol 12.5 MG Tablet PO (06:56)
[2020-08-14] MEDS: Isosorbide DN 30 MG Tablet PO (06:56)
[2020-08-14] MEDS: Senna/Docusate Sodium 1 Tablet PO (06:56)
[2020-08-14] MEDS: Furosemide 40 MG Tablet PO (06:56)
[2020-08-14] MEDS: Aspirin 81 MG TAB.CHEW PO (07:54)
[2020-08-14] MEDS: Acetaminophen 500 MG Tablet 1000 MG PO (09:24)
[2020-08-14 09:33] VITALS: PULSE 60; RESP 18; O2SAT 98
== END 2020-08-14 11:00 | disposition home health service (06) | DRG 552 ==
PROVIDERS: Admitting Provider Family Medicine Geriatric Medicine; PCP Preventive Medicine Occupational Medicine; Visit Provider Family Medicine Geriatric Medicine
DX: M48.061 Spinal stenosis, lumbar region without neurogenic claudication (principal); I50.22 Chronic systolic (congestive) heart failure; E87.6 Hypokalemia; Z23 Encounter for immunization; I25.10 Atherosclerotic heart disease of native coronary artery without angina pectoris; E78.5 Hyperlipidemia, unspecified; M54.16 Radiculopathy, lumbar region; B35.4 Tinea corporis; I25.2 Old myocardial infarction; Z87.891 Personal history of nicotine dependence; I87.2 Venous insufficiency (chronic) (peripheral)
CPT/HCPCS: 36415; 72100; 74018; 80048; 85025; 85027; 87635; 94799; 97110; 97116; 97163; 97166; 97530; 97535; 97802; G0008; J7030; J7040; 90686; A4216; U0003

== ENCOUNTER 2022-03-09 07:58 | Outpatient (CLI) | payer MEDICARE, SELFPAY ==
--- NOTE | 2022-03-09 08:08 | CT_ITS ---
STUDY: CT LEFT SHOULDER REASON FOR EXAM: Female, 81 years old. 3 PART FX RADIATION DOSAGE (If Supplied By Facility): CTDIvol = ( 37.11 ) mGy, DLP = ( 917.87 ) mGycm TECHNIQUE: The patient was scanned in a multi detector CT scanner. High resolution transaxial imaging was performed without the administration of intravenous contrast material. Sagittal and coronal images were reconstructed. Individualized dose optimization techniques were used for this CT. COMPARISON: None. FINDINGS: There is evidence of an anterior inferior dislocation of the glenohumeral joint. Normal coracoid process. Normal visualized lateral clavicle. 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 There is a Type II morphology (curved), with a neutral orientation. There is a comminuted fracture through the proximal surgical neck of the humerus with involvement of the greater tuberosity in posterior displacement of the greater tuberosity. There is rotation of the humeral head. Soft tissue swelling CT/Extremity Upper without Contra IMPRESSION: Anterior inferior dislocation of the glenohumeral joint with a comminuted fracture through the surgical neck of the humerus with extension to the greater tuberosity. The greater tuberosity is avulsed posteriorly. There is rotation of the humeral head. Electronically Signed: Hussain Krishna MD at 9:07 EDT ,
--- NOTE | 2022-03-09 08:09 | EKG12_ITS ---
Test Reason : PREOP Blood Pressure : / mmHG Vent. Rate : 065 BPM Atrial Rate : 065 BPM P-R Int : 172 ms QRS Dur : 082 ms QT Int : 396 ms P-R-T Axes : 053 014 -11 degrees QTc Int : 411 ms Sinus rhythm with marked sinus arrhythmia Nonspecific T wave abnormality Abnormal ECG Confirmed by YVONNE HATCH, JESSICA ([id number]), medical transcription editor JOHNNY MIX ([id number]) on 03/12/2022 2:07:59 PM Referred By: Clifton Orta Confirmed By:TONNY RUSSELL MD
== END 2022-03-09 23:59 | disposition home or self-care (01) ==
LOC: CT 08:01
PROVIDERS: PCP Preventive Medicine Occupational Medicine; Referring Provider Student in an Organized Health Care Education/Training Program; Visit Provider Student in an Organized Health Care Education/Training Program
DX: Z01.810 Encounter for preprocedural cardiovascular examination (principal); S42.232A 3-part fracture of surgical neck of left humerus, initial encounter for closed fracture
CPT/HCPCS: 73200; 93005

== ENCOUNTER 2022-03-28 11:15 | Inpatient (IN) | payer MEDICARE, SELFPAY ==
--- NOTE | 2022-03-20 09:36 | RAD_ITS ---
INDICATION: PRE-OP EXAMINATION/TECHNIQUE: X-RAY - XR Chest 2 Views COMPARISON: Chest radiograph from 07/11/2020 FINDINGS: LINES/DEVICES: None. Chronic fibrotic changes with superimposed atelectasis in the lung bases. Otherwise, no focal consolidations. No sizable pleural effusion or pneumothorax. Stable mild cardiomegaly. Stable midline sternotomy postoperative changes. Acute comminuted fracture of the left humeral head with likely inferior displacement. Remote right humeral head fracture. RAD/Chest PA and Lateral IMPRESSION: 1. Acute comminuted left humeral head fracture with likely inferior displacement. 2. No acute cardiopulmonary process. Electronically Signed: Venancio Lauren, at 11:14 EDT ,
[2022-03-20 10:07] LABS: Absolute Neutrophil Count 3.7 X10^3/uL (2.0-7.7); Basophil# 0.05 X10^3/uL; Basophil% 0.7 % (0-1); Eosinophil# 0.32 X10^3/uL; Eosinophils% 4.7 % (0-5); Hemoglobin 10.3 g/dL (12.0-15.0); Lymphocyte % 28.1 % (19-41); Mean Corp Hgb Conc 30.3 g/dL (32-36); Mean Corpuscular Hgb 28.3 pg (27.0-32.0); Mean Corpuscular Volume 93.4 fL (81-99); Mean Platelet Vol. 10.8 fl (6.2-12.0); Monocyte# 0.74 X10^3/uL; Monocyte% 10.9 % (0-10); NRBC Flagged by Analyzer 0 % (0-5); Neutrophil # 3.71 X10^3/uL (2.7-7.7); Neutrophil % 54.9 % (47-70); Platelet Count 268 K/mm3 (150-450); RBC Distribution Width CV 15.4 % (11.6-14.6); RBC Distribution Width SD 53.1 fl (35.1-43.9); Red Blood Count 3.64 M/mm3 (4.2-5.4); White Blood Count 6.8 K/mm3 (4.4-11.0)
[2022-03-20 10:38] LABS: Anion Gap 3 (5-15); BUN 38 mg/dL (7-18); BUN/Creat Ratio 32.8 RATIO (10-20); Calcium,Total 9.5 mg/dL (8.5-10.1); Chloride 103 mmol/L (98-107); Creatinine, Serum 1.16 mg/dL (0.55-1.02); EST Glomerular Filtration Rate 48 mL/min (>60); Est Glom Filt Rate - Afr Amer 58 mL/min (>60); Glucose 163 mg/dL (74-106); Potassium 4.8 mmol/L (3.5-5.1); Sodium Level 140 mmol/L (136-145)
[2022-03-20 10:45] LABS: Hemoglobin A1c 6.4 % (3.8-5.6)
[2022-03-20 10:49] LABS: Magnesium 2.4 mg/dL (1.6-2.6)
[2022-03-28] VITALS (8 sets, daily range): BP systolic 130–156; BP diastolic 46–88; PULSE 60–74; RESP 16–18; TEMP 35.2–36.3; O2SAT 93–99; BMI 40.0
--- NOTE | 2022-03-28 | SHO_PTH ---
PATIENT: CONRADO PARDO LOC: MS3 U#:[id number] AGE/SX: 81/F ROOM: [facility] [place]03/29/[address]: Dr. Catrachita Mesa DO : 1940 BED: 1 DIS: 04/02/2022 SPEC #: [id number] RECD: 03/29/22 08:07 STATUS: OZ ELISA #: [id number] LIBBY: 03/28/22 00:[address]: Rashard Hall DEPT: SURGICAL PATHOLOGY RECD BY: Diogo Ballesteros ENTERED: 03/29/22 08:07 SP TYPE: HUMERUS OTHR DR: DO Dr. Clifton Ventura, DO Dr. Iban Starr DO Tissues: Humerus, NOS Procedures: Decalcification bone/plaque Surgery Specimen Level IV HEADER OPERATION: ERAS, Reverse Total Shoulder arthroplasty PRE-OP DIAGNOSIS: Displaced, fracture of upper end of left humerus TISSUE SUBMITTED: Left humerus Bone and Tissue MICROSCOPIC DIAGNOSIS Left humeral bone and tissue, total shoulder replacement/resection: Humeral head and detached pieces of bone with focal area of callus formation and hemorrhage, clinically fractured upper end of left humerus. Focal degenerative osteoarthritic changes. Attached pieces of fibroadipose tissue with chronic inflammation and reactive changes. JORY:edwin 04/04/2022 MICROSCOPIC DESCRIPTION Slides are reviewed. GROSS DESCRIPTION Received in fixative is one container labeled with the patient's name and designated left humerus bone and tissue. The specimen consists of a humeral head measuring 4.5 x 4 x 2.5 cm. The articular surface shows focal area of erosion. Resection margin is irregular and hemorrhagic. Also present in the container are detached pieces of bone measuring in aggregate 3 x 3 x 2 cm. Rim Fire Charger Operator sections are submitted in three cassettes after decalcification as follows: 1 - detached pieces of bone, 2 & 3 - humeral head. / JORY:edwin 03/29/2022 TC:5 CPT: 36982, 27748
[2022-03-28] MEDS: Lactated Ringers 1,000 ML 15 ML IV ×2 (12:10→17:00)
[2022-03-28] MEDS: Gabapentin 600 MG Tablet PO (12:28)
[2022-03-28] MEDS: Acetaminophen 500 MG Tablet 1000 MG PO ×2 (12:28→22:20)
[2022-03-28] MEDS: Cefazolin 2 GM in 0.9% Normal Saline 100 ML IV (15:10)
[2022-03-28] MEDS: TXA 1000mg in NS100 100ml (IVPB at Incision) 660 MG IV (15:20)
--- NOTE | 2022-03-28 16:50 | RAD_ITS ---
STUDY: INTRAOPERATIVE LEFT SHOULDER X-RAY OF 1704 HOURS ON 03/28/2022 REASON FOR EXAM: 81-year-old female with left shoulder pain in the operating room for placement of a left shoulder prosthesis. TECHNIQUE: 1 view of the left shoulder. COMPARISON: None. FINDINGS: A single view for prosthesis alignment was performed. RAD/Shoulder min 2 Views IMPRESSION: Single intraoperative view for left shoulder prosthesis alignment. Electronically Signed: Elmer Sims MD at 19:17 EDT ,
[2022-03-28] MEDS: TXA 1000mg in NS100 100ml (IVPB at Closure) 660 MG IV (18:05)
--- NOTE | 2022-03-28 18:55 | RAD_ITS ---
STUDY: LEFT SHOULDER X-RAY SERIES 1848 HOURS ON 03/28/2022 REASON FOR EXAM: 81-year-old female who is postoperative for a complete left shoulder replacement. TECHNIQUE: 2 view(s) of the shoulder. COMPARISON: None. FINDINGS: There is a complete left shoulder joint replacement without adjacent fractures or dislocation. Adjacent subcutaneous emphysema is noted. Mild demineralization is present. RAD/Shoulder min 2 Views IMPRESSION: 1. Complete left shoulder joint prosthesis without adjacent fractures or dislocation. 2. Adjacent subcutaneous emphysema. 3. Mild demineralization. Electronically Signed: Elmer Sims MD at 19:09 EDT ,
[2022-03-28 19:04] LABS: Hematocrit 33.3 % (37-47); Hemoglobin 10.2 g/dL (12.0-15.0); Mean Corp Hgb Conc 30.6 g/dL (32-36); Mean Corpuscular Hgb 28.4 pg (27.0-32.0); Mean Corpuscular Volume 92.8 fL (81-99); Mean Platelet Vol. 10.7 fl (6.2-12.0); Platelet Count 211 K/mm3 (150-450); RBC Distribution Width SD 51.1 fl (35.1-43.9); Red Blood Count 3.59 M/mm3 (4.2-5.4); White Blood Count 9.7 K/mm3 (4.4-11.0)
--- NOTE | 2022-03-28 19:11 | PCM.OPRPT ---
Report of Operation Date of Procedure: 03/28/22 Description of Surgical Findings:: Preoperative diagnosis: Left displaced 4 part proximal humerus fracture dislocation Postoperative diagnosis: Left displaced 4 part proximal humerus fracture dislocation Procedure: Left reverse total shoulder arthroplasty Surgeon: Clifton Orta DO Forensic Accountant: Leora Mary PA-C Anesthesia: General endotracheal Turn Laster: Deepak Ellis CRNA Complications: None apparent Drains: None Estimated blood loss: 400 cc Urinary output: None recorded IV fluids: 1100 cc crystalloid Specimens: Left humeral head Surgical implants: Tornier perform reverse glenoid standard baseplate 25 mm, lateralized glenosphere cobalt chrome +3 mm 36 mm diameter, Aequalis Flex revive proximal body 11 mm, a 132.5 degree, high eccentric +0 mm reversed tray, 13 mm x 90 mm Flex revive partially coated distal stem, flex shoulder system reverse insert thickness +9 mm ultrahigh molecular weight polyethylene angle C 36 mm diameter a: 7.5 degree Surgical indications: This is an 82-year-old female who had a fall and sustained a left four-part proximal humerus fracture dislocation. She was seen in the emergency department and follow-up in my office. Fracture was sustained approximately 6 weeks ago. There was significant delay in follow-up care due to patient unable to follow-up in office in a timely fashion. At time of follow-up, patient was neurovascular intact. I did discuss surgical options versus nonsurgical. We discussed open reduction internal fixation versus reverse. The risk, benefits, alternatives the procedure was reviewed with the patient and she agreed to proceed. Risks included but were not limited to bleeding, infection, instability, loss of life or limb, risk of anesthesia, neurovascular injury, persistent pain, stiffness, prolonged immobilization, need for additional surgery, loosening of orthopedic hardware, nonhealing of tuberosities. She expressed understanding and wished to proceed with surgery. Cardiac and medical clearance was obtained prior to the surgery as well. Surgical details: Patient arrived to [facility] morning of the procedure and was greeted by the same day surgery staff. Prior to her procedure, I greeted the patient in the preoperative holding area I identified the patient by name, record number, and date of . Informed consent was confirmed. The operative extremity was marked. All questions were answered to patient satisfaction. Patient was also seen by anesthesia staff. Interscalene block was administered prior to procedure for postoperative analgesia. At time of her procedure, patient was brought to the operative suite and positioned supine on a standard table with a beachchair attachment. General anesthesia was induced after all bony prominences were well-padded. Endotracheal tube was placed. After adequate anesthesia and securing the tube, we prepared the patient to be positioned in the beachchair position. A well-padded head well puller was applied. The nonoperative extremity was placed in a well arm vines. She was then brought into the beachchair position after we confirmed an appropriate blood pressure. We then spun the bed 45 degrees. The operative extremity was then prepared. In the butterfly wing of the bed was removed and a well-padded torso strap was applied to secure the patient to the bed. The operative extremity was now free. We then prepped and draped the left upper extremity in normal, sterile orthopedic fashion. We then performed a timeout with all parties in attendance in agreement with the side, site, and operation be performed. 2 g Ancef was administered prior to incision by anesthesia staff, as well as 1 g TXA IV. No concerns were voiced and we elected to proceed. I first marked a standard deltopectoral incision just lateral to the coracoid process in line with the long axis of the humerus. Skin was sharply incised with 10 blade scalpel. I then dissected bluntly through the subcutaneous layers and found the fat stripe between the deltoid and pectoralis major. The cephalic vein was then identified and protected. It was retracted laterally with the deltoid. I then bluntly dissected underneath the deltoid with a Cabrera elevator. This quickly identified the fracture site. The upper 1 cm of the pectoralis major was released. I then identified the long head of the biceps tendon in the intertubercular groove. This was tenodesed in situ with #2 FiberWire. I then amputated the biceps proximal to the tenodesis site and followed the tendon to the supraglenoid tubercle where it was amputated. The humeral head was then encountered. There was significant healing noted of the fracture to the shaft. I peeled the subscapularis from the healed portion of the lesser tuberosity and humeral head with Bovie cautery. I then made an in situ cut of the humeral head articular surface with a sagittal saw. I then was able to find the remnants of the greater tuberosity which was retracted posteriorly. The rotator cuff was tagged with a #2 FiberWire for later repair. There was poor bone quality remaining of the greater tuberosity. The majority of the greater tuberosity was debrided with a rongeur. I then excised the glenoid labrum with a Bovie cautery. Central pin was placed in the glenoid utilizing prior 3D templating software. I then used the cannulated reamer to remove remaining articular surface and reamed the inferior osteophyte from the glenoid. I then remove the reamer and drilled for the central screw. I placed a bicortical screw of 30 mm with excellent purchase as well as the glenoid baseplate. 2 bicortical locking screws were placed in the superior and inferior glenoid baseplate holes with excellent purchase. I utilized a peripheral reamer to remove any remaining debris from the periphery of the glenoid. I then placed a +3 mm 36 mm glenosphere, secured with a central screw. We then removed retractors and turned our attention to the humerus. The calcar appeared to be intact. We utilized 30 degrees retroversion for placement of our broaches. We were unable to place a size two broach with good interference fit in the metaphysis. There is at this time I made the decision to convert to a diaphyseal engaging stem. We reamed to a final diaphyseal diameter of 13 mm. I measured a length of 130 mm to the remaining calcar. We trialed a humeral stem. Fluoroscopy was brought in to ensure appropriate size of the diaphyseal fit stem. This appeared appropriate at 13 mm. We selected this as our final size. I copiously irrigated the canal. Final implant was assembled on the back table.. I then trialed with a standard poly and brought through a range of motion. There was mild posterior impingement noted, I elected to place a 9 mm poly to increase offset slightly. Final implant was then impacted per telephone directory deliverer recommendations and final reduction was performed. I passed the #2 FiberWire from the remaining greater tuberosity and rotator cuff into the suture hole on the humeral stem and tied. I then copiously irrigated the wound with Betadine solution and normal saline solution. Hemostasis was excellent. The axillary nerve was visualized and appeared to be intact. We then copiously irrigated the wound with normal saline solution. We reapproximated the interval with 0 Vicryl suture. Subcutaneous layers were reapproximated with 3-0 Monocryl suture. Skin was finally running V-Loc Monocryl suture and Dermabond. A sterile silver Mepilex dressing was applied. Patient was then placed in a abduction pillow sling. Patient tolerated procedure well without complication. She was positioned back in the supine position extubated in the operative suite. She was transferred [facility] the [facility] and subsequently to PACU in stable condition. Need for skilled assistant women's tennis coach: Leora Mary PA-C was critical to the outcome of the case. During the course of the procedure the physician assistant women's tennis coach played a vital role. Her intimate knowledge of my steps in the procedure aided in safe and expedient completion of the procedure. The PA played a vital role in positioning particularly in obtaining the appropriate positioning. The PA was also vital in the retraction of soft tissues during the exposure and protecting vital structures. The PA was also vital and protecting soft tissues during times of bony cuts. She also played a vital role in closure with my direct supervision. The PA was also important during reduction and dislocation of the joint and trials intraoperatively. Intraoperative medications: 2 g Ancef IV, 1 g TXA IV x2 Post Operative Plan: Weightbearing: Nonweightbearing left upper extremity, okay for pendulums. Range of motion of wrist elbow and hand as tolerated. Antibiotics: 2 g Ancef IV prior to incision, Keflex x23 hours postop DVT Prophylaxis: Aspirin 81 mg twice daily starting tomorrow Carranza: None Dressing: Maintain silver dressing x7 days. Okay to shower dressing on started on day 4 X-Rays: 2 weeks postop in the office. X-rays reviewed in the PACU, implant appears appropriately aligned. Follow-up: 2 weeks post-operatively with me in the office Patient will be placed in observation overnight. Likely will require placement due to need for a walker and nonweightbearing left upper extremity.
--- NOTE | 2022-03-28 20:19 | PN.HOSP_ITS ---
Subjective Subjective Patient notes block still present L shoulder/LUE therefore currently denies any pain. She does report being hungry. She denies any yash-operative events. Patient denies fevers, chills, nausea, emesis, abdominal pain, chest pain or dyspnea. Objective Data Objective Data Vital Signs: Vital Signs Temp Pulse Resp BP Pulse Ox 96.9 F L 67 16 156/65 H 94 03/28/22 19:29 03/28/22 19:29 03/28/22 19:29 03/28/22 19:29 03/28/22 19:29 Oxygen Flow Rate (L/min) 4 Oxygen Delivery Method Nasal Cannula Weight: 255 lb 11.779 oz Body Mass Index (BMI) 40.0 Intake & Output: Intake and Output for Last 24 Hours 03/26/22 03/27/22 03/28/22 23:59 23:59 23:59 Intake Total 1432 / 1432 Balance 1432 / 1432 Lab / Micro Data Result Diagrams: 03/28/22 18:50 03/20/22 09:15 Labs: Laboratory Results - last 24 hr 03/28/22 18:50: WBC 9.7, RBC 3.59 L, Hgb 10.2 L, Hct 33.3 L, MCV 92.8, MCH 28.4, MCHC 30.6 L, RDW Std Deviation 51.1 H, RDW Coeff of Estuardo 15.0 H, Plt Count 211, MPV 10.7 Micro: Microbiology 03/20/22 09:15 Swab (Method) Nasal Screen MRSA/MSSA - Final Radiography Diagnostic Testing: Radiology Impression Shoulder X-Ray 03/28/22 16:50 IMPRESSION: Single intraoperative view for left shoulder prosthesis alignment. Electronically Signed: Elmer Sims MD at 19:17 EDT , Shoulder X-Ray 03/28/22 18:55 IMPRESSION: 1. Complete left shoulder joint prosthesis without adjacent fractures or dislocation. 2. Adjacent subcutaneous emphysema. 3. Mild demineralization. Electronically Signed: Elmer Sims MD at 19:09 EDT Reading Location ID and State: [facility] / [place] Tel , Service support , Physical Exam Narrative Physical Examination: General: Awake, alert, oriented x 3 and cooperative, seated upright in MS bed in no apparent distress, recent transition from PACU. Skin: Normal color, normal turgor, no icterus, no cyanosis except recent OR L r everse total shoulder arthroplasty with dressing place, sensation intact. HEENT: AT/NC, EOMI, PERRLA, mildly dry MM, no carotid bruits or JVD noted. Lungs: Diminished, mild decrease BL bases, appropriate effort, no rales, ronchi or wheezing. Heart: Currently regular rate and rhythm; no gallop, rub audible. Abdomen: Soft,morbidly obese, NTTP, no obvious distention, mildly hyperactive BS, difficult to discern HSM secondary to habitus. Extremities: No cyanosis, no clubbing, mild BL ankle edema, L hand with mild swelling given recent OR, in brace. Neurological: Patient awake, alert, oriented x 3, cognitive function intact; pupils equally reactive to light and accommodation, cranial nerves II-XII grossly normal, moving all 4 extremities although LUE with recent OR with brace thus movement purposely limited, strength given recent OR and PACU transition moderately to severely globally decreased. Psychiatric: Affect appears mildly fatigued, otherwse normal, no acute evidence of depressive or anxiety feelings. Assessment & Plan Assessment/Plan (1) Humeral fracture: QUALIFIERS: Encounter type: subsequent encounter Humerus Location: proximal Fracture type: closed Fracture morphology: unspecified fracture morphology Laterality: left Fracture healing: with routine healing Qualified Code(s): S42.202D - Unspecified fracture of upper end of left humerus, subsequent encounter for fracture with routine healing PLAN: The patient is an 81 y/o F w/ PMHx: HTN, HLD, Former tobacco use, Chronic systolic CHF, CAD s/p CABG x 5 who presents to the [facility] on 03/28/22 for planned left reverse total shoulder arthroplasty following 02/20/22 fall with L humeral fracture with dislocation. #1. Recent left displaced four-part proximal humeral fracture with dislocation: Following outpatient treatments and time for decrease of patient edema, admitted per Dr. Monson for planned left reverse total shoulder arthroplasty, post- operative pain management, bowel regimen, DVT Prophylaxis, PT/OT/CM per Orthopedic surgery discretion. #2. CAD: Status post CABG, continue aspirin, statin, Coreg, not on CHRIS or ARB. #3. Chronic systolic CHF: We will continue aspirin, statin, Coreg, Lasix, not on CHRIS inhibitor or ARB. #4. Hypertension: Continue home regimen including Coreg, Lasix, isosorbide, PRN hydralazine. #5. Hyperlipidemia: We will continue patient statin therapy. #6. Former tobacco use: Encourage continued tobacco cessation #7. DVT prophylaxis: SCDs, chemoprophylaxis per surgery discretion given recent or peer Charges/Coding Visit Charges Inpatient E&M: 08616 Subs Hosp L3
[2022-03-28] MEDS: Cefazolin 1 GM/50 ML BAG IV (22:18)
[2022-03-28] MEDS: Nystatin Ointment 1 APPLIC TOPICAL (22:19)
[2022-03-28] MEDS: Senna/Docusate Sodium 1 Tablet 2 TABLET PO (22:20)
[2022-03-28] MEDS: Atorvastatin Calcium 40 MG Tablet PO (22:20)
[2022-03-28] MEDS: Isosorbide DN 30 MG Tablet PO (22:20)
[2022-03-28] MEDS: Carvedilol 12.5 MG Tablet PO (22:20)
[2022-03-29 00:30] VITALS: BP 121/60; PULSE 84; RESP 18; TEMP 36.2; O2SAT 98
[2022-03-29 04:29] VITALS: BP 113/46; PULSE 83; RESP 18; TEMP 36.2; O2SAT 94
[2022-03-29] MEDS: Acetaminophen 500 MG Tablet 1000 MG PO ×3 (04:31→22:11)
[2022-03-29] MEDS: Cefazolin 1 GM/50 ML BAG IV (05:42)
[2022-03-29 06:19] LABS: Hematocrit 30.8 % (37-47); Hemoglobin 9.3 g/dL (12.0-15.0); Mean Corp Hgb Conc 30.2 g/dL (32-36); Mean Corpuscular Hgb 28.4 pg (27.0-32.0); Mean Corpuscular Volume 93.9 fL (81-99); Mean Platelet Vol. 10.9 fl (6.2-12.0); Platelet Count 213 K/mm3 (150-450); RBC Distribution Width CV 14.6 % (11.6-14.6); RBC Distribution Width SD 50.6 fl (35.1-43.9); Red Blood Count 3.28 M/mm3 (4.2-5.4); White Blood Count 11.1 K/mm3 (4.4-11.0)
[2022-03-29 06:45] LABS: Anion Gap 3 (5-15); BUN 25 mg/dL (7-18); BUN/Creat Ratio 23.8 RATIO (10-20); Calcium,Total 8.4 mg/dL (8.5-10.1); Chloride 103 mmol/L (98-107); Creatinine, Serum 1.05 mg/dL (0.55-1.02); EST Glomerular Filtration Rate 53 mL/min (>60); Est Glom Filt Rate - Afr Amer 65 mL/min (>60); Estimated Creatinine Clearance 40.86 ml/min; Glucose 207 mg/dL (74-106); Potassium 5.2 mmol/L (3.5-5.1); Sodium Level 138 mmol/L (136-145)
--- NOTE | 2022-03-29 07:44 | PN.HOSP_ITS ---
Subjective Subjective Patient is an 81-year-old lady who underwent left reverse total shoulder arthroplasty on 03/28/2022 on account of Left displaced 4 part proximal humerus fracture dislocation by Dr. Orta. The hospitalist service was consulted to assist with management of patient medical comorbidities Objective Data Objective Data Vital Signs: Vital Signs Temp Pulse Resp BP Pulse Ox 97.2 F L 83 18 113/46 L 94 03/29/22 04:29 03/29/22 04:29 03/29/22 04:29 03/29/22 04:29 03/29/22 04:29 Oxygen Flow Rate (L/min) 2 Oxygen Delivery Method Nasal Cannula Weight: 116 kg Body Mass Index (BMI) 40.0 Intake & Output: Intake and Output for Last 24 Hours 03/27/22 03/28/22 03/29/22 23:59 23:59 23:59 Intake Total 1482 / 1482 50 / 50 Output Total 0 / 0 625 / 625 Balance 1482 / 1482 -575 / -575 Lab / Micro Data Result Diagrams: 03/29/22 05:30 03/29/22 05:30 Labs: Laboratory Results - last 24 hr 03/28/22 18:50: WBC 9.7, RBC 3.59 L, Hgb 10.2 L, Hct 33.3 L, MCV 92.8, MCH 28.4, MCHC 30.6 L, RDW Std Deviation 51.1 H, RDW Coeff of Estuardo 15.0 H, Plt Count 211, MPV 10.7 03/29/22 05:30: WBC 11.1 H, RBC 3.28 L, Hgb 9.3 L, Hct 30.8 L, MCV 93.9, MCH 28.4, MCHC 30.2 L, RDW Std Deviation 50.6 H, RDW Coeff of Estuardo 14.6, Plt Count 213, MPV 10.9 03/29/22 05:30: Sodium 138, Potassium 5.2 H, Chloride 103, Carbon Dioxide 32.0, Anion Gap 3 L, BUN 25 H, Creatinine 1.05 H, Estim Creat Clear Calc 40.86, Est GFR (MDRD) Af Amer 65, Est GFR (MDRD) Non-Af 53 L, BUN/Creatinine Ratio 23.8 H, Glucose 207 H, Calcium 8.4 L Micro: Microbiology 03/20/22 09:15 Swab (Method) Nasal Screen MRSA/MSSA - Final Radiography Diagnostic Testing: Radiology Impression Shoulder X-Ray 03/28/22 16:50 IMPRESSION: Single intraoperative view for left shoulder prosthesis alignment. Electronically Signed: Elmer Sims MD at 19:17 EDT , Shoulder X-Ray 03/28/22 18:55 IMPRESSION: 1. Complete left shoulder joint prosthesis without adjacent fractures or dislocation. 2. Adjacent subcutaneous emphysema. 3. Mild demineralization. Electronically Signed: Elmer Sims MD at 19:09 EDT , Physical Exam Narrative GENERAL: cooperative HEENT: Atraumatic; EYES; Anicteric, Normal Conjunctiva NECK; supple, normal thyroid, RESPIRATORY: Diminished to auscultation CARDIOVASCULAR: Regular S1 S2, GI: soft, normoactive bowel sounds, : No Renal angle tenderness; EXTREMITIES: trace edema, no clubbing, MUSCULOSKELETAL: Left shoulder immobilizer in surgical dressing NEURO: Awake; no lateralizing signs. SKIN: No Rash PSYCH; Flat affect GENERAL: cooperative Assessment & Plan Assessment/Plan (1) Humeral fracture: QUALIFIERS: Encounter type: subsequent encounter Fracture healing: with routine healing Fracture morphology: unspecified fracture morphology Fracture type: closed Humerus Location: proximal Laterality: left Qualified Code(s): S42.202D - Unspecified fracture of upper end of left humerus, subsequent encounter for fracture with routine healing PLAN: Patient is an 81-year-old lady who underwent left reverse total s houlder arthroplasty on 03/28/2022 on account of Left displaced 4 part proximal humerus fracture dislocation by Dr. Orta. The hospitalist service was consulted to assist with management of patient medical comorbidities 1. Status post left reverse total shoulder arthroplasty -on 03/28/2022 on account of Left displaced 4 part proximal humerus fracture dislocation by Dr. Orta. Patient postoperative orders regarding PT OT, pain management and DVT prophylaxis addressed by primary service 2. Coronary artery disease ? With previous CABG patient is currently on recommended medications including dual platelet therapy with aspirin, beta-blockers nitrate and statin therapy did continue. 3. Chronic heart failure ? Unspecified ejection fraction. Currently not in exacerbation patient is on furosemide did continue 4. Hypertension - Blood pressure controlled, home medications continued with dose adjustment as needed 5. Dyslipidemia -Patient is on statin therapy, continued at home dose 6. Anemia - Secondary to chronic disorder as well as acute blood loss anemia from surgery. Monitoring H&H and transfuse if patient becomes symptomatic or hemoglobin falls below 7 7. DVT prophylaxis ? As per primary service patient was placed on aspirin 81 mg p.o. twice daily 8. Mild hyperkalemia ? Repeat potassium levels ordered and if elevated patient will be administered with Kayexalate Charges/Coding Visit Charges Inpatient E&M: 88739 Subs Hosp L3
[2022-03-29 07:49] VITALS: O2SAT 93
[2022-03-29] MEDS: Furosemide 40 MG Tablet PO (07:58)
[2022-03-29] MEDS: Senna/Docusate Sodium 1 Tablet 2 TABLET PO ×2 (07:58→22:12)
[2022-03-29] MEDS: Carvedilol 12.5 MG Tablet PO ×2 (07:58→22:12)
[2022-03-29] MEDS: Isosorbide DN 30 MG Tablet PO ×2 (07:58→22:12)
[2022-03-29] MEDS: Tolterodine Tartrate 2 MG CAP.SA PO (07:58)
[2022-03-29] MEDS: Cholecalciferol (VIT D3) 25 MCG TABLET (1,000 UNITS) PO (07:58)
[2022-03-29] MEDS: Aspirin E.C. 81 MG Tablet PO ×2 (07:58→18:46)
[2022-03-29] MEDS: Nystatin Ointment 1 APPLIC TOPICAL ×2 (07:59→22:12)
[2022-03-29] MEDS: Menthol/Lanolin/Calamine/Znox 113 GM Tube 1 APPLIC TOPICAL (07:59)
[2022-03-29 08:00] VITALS: BP 109/57; PULSE 64; RESP 16; TEMP 36.3; O2SAT 95
[2022-03-29] MEDS: Ensure Surgery 237 ML LIQUID PO ×3 (08:03→18:46)
--- NOTE | 2022-03-29 10:10 | CASEMGMT ---
Addendum entered by Geri Middleton 03/29/22 16:34: 1440: Per [facility]era @ [facility], they are able to accept pt, and she submitted for pre-cert earlier today. [facility] did offer for pt to private pay for a week for the amt of $1,393, pending pre-cert, if she wishes to discharge there today. Pt made aware [facility] has accepted her and made aware of offer to private pay for a week if she wishes to d/c there today. She declines to private pay and states will wait on insurance authorization. Original Note: RN CM NETWORKS SOFTWARE CONSULTANT CM to room to meet with patient for initial transition planning/care coordination assessment. RN KATYA introduced self and role at [facility]. Pt voices understanding and consents to assessment at this time. Pt sitting up in chair in no distress at this time. Pt is A/O at this time and answers all questions appropriately. Care providers, pharmacy, and demographics verified/updated at this time. PCP: Iban Starr Specialists: Dr Orta-ortho, FRANDY Goode-cardiology in [place] Preferred Pharmacy: [facility] Insurance: [employer] [facility] Prescription Benefit: yes Living Will/HPOA: Has both LW and HPOA, who is her daughter, Natalie LNOK: DtrNatalie. Sister, Hilda Living Arrangements: Dtr, Natalie, lives w/pt in 2-story home. FFSU w/ramp entrance. Pt was independent until fall and injury in January. Since then, care is managed by pt's daughter and 2 friends who come to help. They assist pt w/walking/ambulation, ADL's such as bathing and dressing and do IADL's. Transportation: daughter does most of the driving. Pt's sister helps occasionally DME: States has the following DME: shower chair, BSC, cane, rails/grab bars, walker, W/C, hiram-walker, media production support manager, sling. Pt sleeps in recliner @ . Pt states no need for further DME at this time. HHC/SNF: Hx of [facility] TCU in 2019. Pt states her daughter works @ [facility] and she wishes to discharge there. Pt was provided with list of SNF providers including quality and resource use data and consistent with the patient's preferred geographic region, medical needs, and insurance network. The pt confirms her 1st choice is [facility]. Call placed to [facility] and VM left w/[facility] re: referral. Referral packet faxed. PLAN: [facility] pending acceptance and precert and when medically ready. Cristopher BSN RN CM
[2022-03-29 10:55] LABS: Potassium 5.4 mmol/L (3.5-5.1)
--- NOTE | 2022-03-29 14:33 | PN.ORTHO_ITS ---
Subjective Subjective Patient seen and examined. Denies any new complaints. Pain is controlled. Denies any fevers, chills, nausea or vomiting, chest pain or shortness of breath. Tolerating oral intake. Objective Data Objective Data Vital Signs: Vital Signs Temp Pulse Resp BP Pulse Ox 97.4 F L 64 16 109/57 L 95 03/29/22 08:00 03/29/22 08:00 03/29/22 08:00 03/29/22 08:00 03/29/22 08:00 Oxygen Flow Rate (L/min) 2 Oxygen Delivery Method Room Air Weight: 255 lb 11.779 oz Body Mass Index (BMI) 40.0 Intake & Output: Intake and Output for Last 24 Hours 03/27/22 03/28/22 03/29/22 23:59 23:59 23:59 Intake Total 1482 / 1482 50 / 50 Output Total 0 / 0 625 / 625 Balance 1482 / 1482 -575 / -575 Lab / Micro Data Result Diagrams: 03/29/22 05:30 03/29/22 10:23 Labs: Laboratory Results - last 24 hr 03/28/22 18:50: WBC 9.7, RBC 3.59 L, Hgb 10.2 L, Hct 33.3 L, MCV 92.8, MCH 28.4, MCHC 30.6 L, RDW Std Deviation 51.1 H, RDW Coeff of Estuardo 15.0 H, Plt Count 211, MPV 10.7 03/29/22 05:30: WBC 11.1 H, RBC 3.28 L, Hgb 9.3 L, Hct 30.8 L, MCV 93.9, MCH 28.4, MCHC 30.2 L, RDW Std Deviation 50.6 H, RDW Coeff of Estuardo 14.6, Plt Count 213, MPV 10.9 03/29/22 05:30: Sodium 138, Potassium 5.2 H, Chloride 103, Carbon Dioxide 32.0, Anion Gap 3 L, BUN 25 H, Creatinine 1.05 H, Estim Creat Clear Calc 40.86, Est GFR (MDRD) Af Amer 65, Est GFR (MDRD) Non-Af 53 L, BUN/Creatinine Ratio 23.8 H, Glucose 207 H, Calcium 8.4 L 03/29/22 10:23: Potassium 5.4 H Micro: Microbiology 03/20/22 09:15 Swab (Method) Nasal Screen MRSA/MSSA - Final Radiography Diagnostic Testing: Radiology Impression Shoulder X-Ray 03/28/22 16:50 IMPRESSION: Single intraoperative view for left shoulder prosthesis alignment. Electronically Signed: Elmer Sims MD at 19:17 EDT Reading Location ID and State: [address] [place] [address] Tel , Service support , Shoulder X-Ray 03/28/22 18:55 IMPRESSION: 1. Complete left shoulder joint prosthesis without adjacent fractures or dislocation. 2. Adjacent subcutaneous emphysema. 3. Mild demineralization. Electronically Signed: Elmer Sims MD at 19:09 EDT Reading Location ID and State: [address] [place] [address] Tel , Service support , Physical Exam Narrative General - A&Ox3, NAD. VSS/AF. Left upper Extremity - SILT & 5/5 in radial, ulnar, musculocutaneous, axillary, and median nerve distributions. Radial, ulnar pulses 2+. Compartments soft and compressible. BCR in finger tips. Sling in place, incisional dressing C/D/I. Assessment & Plan Assessment/Plan (1) Humeral fracture: QUALIFIERS: Encounter type: subsequent encounter Humerus Location: proximal Fracture type: closed Fracture morphology: unspecified fracture morphology Laterality: left Fracture healing: with routine healing Qualified Code(s): S42.202D - Unspecified fracture of upper end of left humerus, subsequent encounter for fracture with routine healing PLAN: POD#1 s/p left reverse shoulder arthroplasty for fracture dislocation - Pain control - Medicine following for medical management - PT/OT - DVT PPX -home aspirin, SCDs, early mobilization - Case management - D/C planning. Pending pre-CERT for SNF
[2022-03-29 16:00] VITALS: BP 110/45; PULSE 76; RESP 16; TEMP 36.3; O2SAT 94
[2022-03-29] MEDS: Sodium Polystyrene Sulfonate 15 GM/60 ML UDC 30 GM PO (16:18)
[2022-03-29 22:06] VITALS: BP 148/77; PULSE 84; RESP 18; TEMP 36.4; O2SAT 92
[2022-03-29] MEDS: Atorvastatin Calcium 40 MG Tablet PO (22:12)
[2022-03-30 04:00] VITALS: O2SAT 98
[2022-03-30 04:06] VITALS: BP 105/49; PULSE 70; RESP 18; TEMP 36.6; O2SAT 98
[2022-03-30] MEDS: Acetaminophen 500 MG Tablet 1000 MG PO ×3 (06:02→22:02)
[2022-03-30 06:06] LABS: Absolute Lymphocyte Count 1.66 X10^3/uL (0.83-4.51); Basophil# 0.03 X10^3/uL; Basophil% 0.2 % (0-1); Eosinophils% 0.7 % (0-5); Hematocrit 29.4 % (37-47); Hemoglobin 9.1 g/dL (12.0-15.0); Lymphocyte # 1.66 X10^3/ul (0.83-4.51); Lymphocyte % 11.6 % (19-41); Mean Corpuscular Hgb 28.5 pg (27.0-32.0); Mean Corpuscular Volume 92.2 fL (81-99); Mean Platelet Vol. 10.6 fl (6.2-12.0); Monocyte# 1.29 X10^3/uL; NRBC Flagged by Analyzer 0 % (0-5); Neutrophil # 11.01 X10^3/uL (2.7-7.7); Neutrophil % 77.3 % (47-70); Platelet Count 215 K/mm3 (150-450); RBC Distribution Width CV 14.8 % (11.6-14.6); Red Blood Count 3.19 M/mm3 (4.2-5.4); White Blood Count 14.3 K/mm3 (4.4-11.0)
[2022-03-30 06:34] LABS: Anion Gap 5 (5-15); BUN 36 mg/dL (7-18); BUN/Creat Ratio 31.3 RATIO (10-20); Calcium,Total 8.6 mg/dL (8.5-10.1); Chloride 99 mmol/L (98-107); Creatinine, Serum 1.15 mg/dL (0.55-1.02); EST Glomerular Filtration Rate 48 mL/min (>60); Est Glom Filt Rate - Afr Amer 58 mL/min (>60); Estimated Creatinine Clearance 37.31 ml/min; Glucose 200 mg/dL (74-106); Potassium 4.4 mmol/L (3.5-5.1); Sodium Level 137 mmol/L (136-145)
--- NOTE | 2022-03-30 07:27 | PN.HOSP_ITS ---
Subjective Subjective Patient seen complains of some soreness in her right shoulder. Did receive Kayexalate the day prior for elevated potassium of 5.4. Potassium down to 4.4 this a.m. Objective Data Objective Data Vital Signs: Vital Signs Temp Pulse Resp BP Pulse Ox 97.9 F 70 18 105/49 L 98 03/30/22 04:06 03/30/22 04:06 03/30/22 04:06 03/30/22 04:06 03/30/22 04:06 Oxygen Flow Rate (L/min) 2 Oxygen Delivery Method Nasal Cannula Weight: 116 kg Body Mass Index (BMI) 40.0 Intake & Output: Intake and Output for Last 24 Hours 03/28/22 03/29/22 03/30/22 23:59 23:59 23:59 Intake Total 1482 / 1482 1212.5 / 1212.5 Output Total 0 / 0 1375 / 1375 Balance 1482 / 1482 -162.5 / -162.5 Lab / Micro Data Result Diagrams: 03/30/22 05:45 03/30/22 05:45 Labs: Laboratory Results - last 24 hr 03/29/22 10:23: Potassium 5.4 H 03/30/22 05:45: WBC 14.3 H, RBC 3.19 L, Hgb 9.1 L, Hct 29.4 L, MCV 92.2, MCH 28.5, MCHC 31.0 L, RDW Std Deviation 50.0 H, RDW Coeff of Estuardo 14.8 H, Plt Count 215, MPV 10.6, Immature Gran % (Auto) 1.200 H, Neut % (Auto) 77.3 H, Lymph % (Auto) 11.6 L, [place] % (Auto) 9.0, Eos % (Auto) 0.7, Baso % (Auto) 0.2, Absolute Neuts (auto) 11.0 H, Absolute Lymphs (auto) 1.66, Nucleated RBC % 0 03/30/22 05:45: Sodium 137, Potassium 4.4, Chloride 99, Carbon Dioxide 33.0 H, Anion Gap 5, BUN 36 H, Creatinine 1.15 H, Estim Creat Clear Calc 37.31, Est GFR (MDRD) Af Amer 58 L, Est GFR (MDRD) Non-Af 48 L, BUN/Creatinine Ratio 31.3 H, Gl ucose 200 H, Calcium 8.6, Magnesium 2.0 Micro: Microbiology 03/20/22 09:15 Swab (Method) Nasal Screen MRSA/MSSA - Final Physical Exam Narrative GENERAL: cooperative HEENT: Atraumatic; EYES; Anicteric, Normal Conjunctiva NECK; supple, normal thyroid, RESPIRATORY: Diminished to auscultation CARDIOVASCULAR: Regular S1 S2, GI: soft, normoactive bowel sounds, : No Renal angle tenderness; EXTREMITIES: trace edema, no clubbing, MUSCULOSKELETAL: Left shoulder immobilizer in surgical dressing NEURO: Awake; no lateralizing signs. SKIN: No Rash PSYCH; Flat affect GENERAL: cooperative Assessment & Plan Assessment/Plan (1) Humeral fracture: QUALIFIERS: Encounter type: subsequent encounter Fracture healing: with routine healing Fracture morphology: unspecified fracture morphology Fracture type: closed Humerus Location: proximal Laterality: left Qualified Code(s): S42.202D - Unspecified fracture of upper end of left humerus, subsequent encounter for fracture with routine healing PLAN: Patient is an 81-year-old lady who underwent left reverse total shoulder arthroplasty on 03/28/2022 on account of Left displaced 4 part proximal humerus fracture dislocation by Dr. Orta. The hospitalist service was consulted to assist with management of patient medical comorbidities 1. Status post left reverse total shoulder arthroplasty -on 03/28/2022 on account of Left displaced 4 part proximal humerus fracture dislocation by Dr. Orta. Patient postoperative orders regarding PT OT, pain management and DVT prophylaxis addressed by primary service ? 03/30/2022. Patient complaining of some soreness in the left shoulder. 2. Coronary artery disease ? With previous CABG patient is currently on recommended medications including dual platelet therapy with aspirin, beta-blockers nitrate and statin therapy did continue. 3. Chronic heart failure ? Unspecified ejection fraction. Currently not in exacerbation patient is on furosemide did continue 4. Hypertension - Blood pressure controlled, home medications continued with dose adjustment as needed 5. Dyslipidemia -Patient is on statin therapy, continued at home dose 6. Anemia - Secondary to chronic disorder as well as acute blood loss anemia from surgery. Monitoring H&H and transfuse if patient becomes symptomatic or hemoglobin falls below 7 7. DVT prophylaxis ? As per primary service patient was placed on aspirin 81 mg p.o. twice daily 8. Mild hyperkalemia ? Repeat potassium levels ordered and if elevated patient will be administered with Kayexalate ? 03/30/2022; repeat potassium came back elevated at 5.430 g of Kayexalate administered potassium down to 4.4 this a.m. 9. Physical deconditioning - Requested for PT OT eval and social worker clinical to assist with discharge planning Charges/Coding Visit Charges Inpatient E&M: 07669 Subs Hosp L2
[2022-03-30] MEDS: Ensure Surgery 237 ML LIQUID PO (09:23)
[2022-03-30] MEDS: Carvedilol 12.5 MG Tablet PO ×2 (09:23→22:02)
[2022-03-30] MEDS: Aspirin E.C. 81 MG Tablet PO ×2 (09:23→17:29)
[2022-03-30] MEDS: Furosemide 40 MG Tablet PO (09:24)
[2022-03-30] MEDS: Tolterodine Tartrate 2 MG CAP.SA PO (09:24)
[2022-03-30] MEDS: Nystatin Ointment 1 APPLIC TOPICAL ×2 (09:24→22:02)
[2022-03-30] MEDS: Isosorbide DN 30 MG Tablet PO ×2 (09:24→22:02)
[2022-03-30] MEDS: Cholecalciferol (VIT D3) 25 MCG TABLET (1,000 UNITS) PO (09:25)
[2022-03-30] MEDS: Menthol/Lanolin/Calamine/Znox 113 GM Tube 1 APPLIC TOPICAL (09:25)
[2022-03-30] MEDS: oxyCODONE 5 MG Tablet PO ×2 (09:40→22:03)
[2022-03-30 09:56] VITALS: BP 109/44; PULSE 67; RESP 16; TEMP 36.5; O2SAT 95
--- NOTE | 2022-03-30 12:18 | PCM.PN.ORT ---
Subjective Subjective Patient seen and examined. Denies any new complaints. Denies fevers, chills, nausea vomiting, chest pain or shortness of breath. Awaiting pre-CERT for SNF. Objective Data Objective Data Vital Signs: Vital Signs Temp Pulse Resp BP Pulse Ox 97.7 F L 67 16 109/44 L 95 03/30/22 09:56 03/30/22 09:56 03/30/22 09:56 03/30/22 09:56 03/30/22 09:56 Oxygen Flow Rate (L/min) 2 Oxygen Delivery Method Room Air Weight: 255 lb 11.779 oz Body Mass Index (BMI) 40.0 Intake & Output: Intake and Output for Last 24 Hours 03/28/22 03/29/22 03/30/22 23:59 23:59 23:59 Intake Total 1482 / 1482 1212.5 / 1212.5 Output Total 0 / 0 1375 / 1375 Balance 1482 / 1482 -162.5 / -162.5 Lab / Micro Data Result Diagrams: 03/30/22 05:45 03/30/22 05:45 Labs: Laboratory Results - last 24 hr 03/30/22 05:45: WBC 14.3 H, RBC 3.19 L, Hgb 9.1 L, Hct 29.4 L, MCV 92.2, MCH 28.5, MCHC 31.0 L, RDW Std Deviation 50.0 H, RDW Coeff of Estuardo 14.8 H, Plt Count 215, MPV 10.6, Immature Gran % (Auto) 1.200 H, Neut % (Auto) 77.3 H, Lymph % (Auto) 11.6 L, [place] % (Auto) 9.0, Eos % (Auto) 0.7, Baso % (Auto) 0.2, Absolute Neuts (auto) 11.0 H, Absolute Lymphs (auto) 1.66, Nucleated RBC % 0 03/30/22 05:45: Sodium 137, Potassium 4.4, Chloride 99, Carbon Dioxide 33.0 H, Anion Gap 5, BUN 36 H, Creatinine 1.15 H, Estim Creat Clear Calc 37.31, Est GFR (MDRD) Af Amer 58 L, Est GFR (MDRD) Non-Af 48 L, BUN/Creatinine Ratio 31.3 H, Glucose 200 H, Calcium 8.6, Magnesium 2.0 Micro: Microbiology 03/20/22 09:15 Swab (Method) Nasal Screen MRSA/MSSA - Final Physical Exam Narrative General - A&Ox3, NAD. VSS/AF. Left upper Extremity - SILT & 5/5 in radial, ulnar, musculocutaneous, axillary, and median nerve distributions. Radial, ulnar pulses 2+. Compartments soft and compressible. BCR in finger tips. Sling in place, incisional dressing C/D/I. Assessment & Plan Assessment/Plan (1) Humeral fracture: QUALIFIERS: Encounter type: subsequent encounter Humerus Location: proximal Fracture type: closed Fracture morphology: unspecified fracture morphology Laterality: left Fracture healing: with routine healing Qualified Code(s): S42.202D - Unspecified fracture of upper end of left humerus, subsequent encounter for fracture with routine healing PLAN: POD#2 s/p left reverse shoulder arthroplasty for fracture dislocation - Pain control - Medicine following for medical management - PT/OT - DVT PPX -home aspirin, SCDs, early mobilization - Case management - D/C planning. Pending pre-CERT for SNF
--- NOTE | 2022-03-30 12:19 | PCM.TXEXTCAR ---
Diet 03/29/22 05:47 Diet: Regular - General Is pt able to select menu?: Yes Wound(s) LEFT SHOULDER: Wound Type: Surgical Incision Problem/Diagnosis (1) Humeral fracture: Status: Acute Comment: Ok to leave wound open to air, ok to shower - no tub soaks Allergies/Procedures Done in Hospital Allergies No Known Allergies Allergy (Verified 03/28/22 12:18) Type of Care/Length of Stay Estimated LOS: Convalescent Care Less Than 30 days Type of Care Needed: Skilled Rehab Potential: Good Prognosis: Good Additional Orders/Day of Discharge Day of Discharge: 04/02/22 Discharge Plan Admission Admit Date/Time: 03/29/22 10:46 Attending Provider: Catrachita Mesa Primary Care Provider: Iban Starr Consulting Providers: Ignacio France ; Clifton Orta ; Rashard Hall ; Gina Yun Instructions Additional Instructions / Restrictions: Follow preprinted instructions from your surgeons office. Discharge Orders/Prescriptions Prescriptions: New aspirin 81 mg Tablet,Delayed Release (Dr/Ec) 81 mg PO BIDCM 26 Days Qty: 52 RF: 0 oxycodone 5 mg tablet 10 mg PO Q6H PRN (Reason: pain) 7 Days Qty: 42 RF: 0 Continued carvedilol 12.5 MG tablet 12.5 mg PO BID RF: 0 isosorbide dinitrate 30 MG tablet 30 mg PO BID RF: 0 rosuvastatin 20 MG tablet 20 mg PO QHS RF: 0 nystatin 1 APPLIC ointment 1 applic topical BID RF: 0 furosemide 40 MG tablet 40 mg PO DAILY Qty: 30 RF: 0 multivitamin Tablet 1 tab PO DAILY RF: 0 cholecalciferol (vitamin D3) [Vitamin D3] 25 mcg (1,000 unit) Capsule 25 mcg PO DAILY RF: 0 acetaminophen 500 MG tablet 1,000 mg PO QAM RF: 0 acetaminophen 500 MG tablet 1,000 mg PO QHS RF: 0 menthol-zinc oxide 1 APPLIC ointment 1 applic TOPICAL DAILY RF: 0 trospium 20 mg Tablet 20 mg PO BID RF: 0 Held Aspirin, Baby 81 mg PO DAILY RF: 0 Hold Instructions: Resume on 04/25/22. Referrals / Follow Up: Clifton Orta DO [STAFF PHYSICIAN] - Within 2 Weeks Ro,Iban, DO [Primary Care Provider] - Disposition Disposition (needs filled in before D/C Order can be placed): Nursing Home Facility
[2022-03-30 13:54] VITALS: O2SAT 95
[2022-03-30 14:05] VITALS: BP 152/83; PULSE 85; RESP 14; TEMP 36.9; O2SAT 99
[2022-03-30 21:53] VITALS: BP 142/77; PULSE 81; RESP 16; TEMP 36.7; O2SAT 97
[2022-03-30] MEDS: Atorvastatin Calcium 40 MG Tablet PO (22:02)
[2022-03-30] MEDS: Senna/Docusate Sodium 1 Tablet 2 TABLET PO (22:02)
[2022-03-31 02:40] VITALS: BP 131/50; PULSE 89; RESP 16; TEMP 37; O2SAT 97
[2022-03-31] MEDS: Acetaminophen 500 MG Tablet 1000 MG PO ×3 (05:54→21:41)
[2022-03-31 06:12] LABS: Absolute Lymphocyte Count 2.51 X10^3/uL (0.83-4.51); Absolute Neutrophil Count 6.6 X10^3/uL (2.0-7.7); Basophil# 0.04 X10^3/uL; Basophil% 0.4 % (0-1); Eosinophils% 2.7 % (0-5); Hematocrit 27.5 % (37-47); Hemoglobin 8.5 g/dL (12.0-15.0); Lymphocyte # 2.51 X10^3/ul (0.83-4.51); Lymphocyte % 22.9 % (19-41); Mean Corp Hgb Conc 30.9 g/dL (32-36); Mean Corpuscular Hgb 28.5 pg (27.0-32.0); Mean Corpuscular Volume 92.3 fL (81-99); Mean Platelet Vol. 10.2 fl (6.2-12.0); Monocyte# 1.29 X10^3/uL; Monocyte% 11.8 % (0-10); NRBC Flagged by Analyzer 0 % (0-5); Neutrophil # 6.63 X10^3/uL (2.7-7.7); Neutrophil % 60.6 % (47-70); Platelet Count 199 K/mm3 (150-450); RBC Distribution Width CV 15.4 % (11.6-14.6); RBC Distribution Width SD 51.8 fl (35.1-43.9); Red Blood Count 2.98 M/mm3 (4.2-5.4)
[2022-03-31 06:15] VITALS: O2SAT 97
[2022-03-31 06:52] LABS: Anion Gap 2 (5-15); BUN 36 mg/dL (7-18); BUN/Creat Ratio 37.2 RATIO (10-20); Calcium,Total 8.5 mg/dL (8.5-10.1); Chloride 103 mmol/L (98-107); Creatinine, Serum 0.97 mg/dL (0.55-1.02); EST Glomerular Filtration Rate 59 mL/min (>60); Est Glom Filt Rate - Afr Amer 71 mL/min (>60); Estimated Creatinine Clearance 44.23 ml/min; Glucose 152 mg/dL (74-106); Potassium 4.2 mmol/L (3.5-5.1); Sodium Level 136 mmol/L (136-145)
[2022-03-31 07:08] VITALS: O2SAT 96
--- NOTE | 2022-03-31 07:29 | PN.HOSP_ITS ---
Subjective Subjective Patient seen pain in her left shoulder well controlled. Awaiting transfer to residential facility pending insurance approval Objective Data Objective Data Vital Signs: Vital Signs Temp Pulse Resp BP Pulse Ox 98.6 F 89 16 131/50 H 96 03/31/22 02:40 03/31/22 02:40 03/31/22 02:40 03/31/22 02:40 03/31/22 07:08 Oxygen Flow Rate (L/min) 2 Oxygen Delivery Method Nasal Cannula Weight: 116 kg Body Mass Index (BMI) 40.0 Intake & Output: Intake and Output for Last 24 Hours 03/29/22 03/30/22 03/31/22 23:59 23:59 23:59 Intake Total 1212.5 / 1212.5 Output Total 1375 / 1375 1 / 1 0 / 0 Balance -162.5 / -162.5 -1 / -1 0 / 0 Lab / Micro Data Result Diagrams: 03/31/22 06:04 03/31/22 06:04 Labs: Laboratory Results - last 24 hr 03/31/22 06:04: WBC 11.0, RBC 2.98 L, Hgb 8.5 L, Hct 27.5 L, MCV 92.3, MCH 28.5, MCHC 30.9 L, RDW Std Deviation 51.8 H, RDW Coeff of Estuardo 15.4 H, Plt Count 199, MPV 10.2, Immature Gran % (Auto) 1.600 H, Neut % (Auto) 60.6, Lymph % (Auto) 22.9, [place] % (Auto) 11.8 H, Eos % (Auto) 2.7, Baso % (Auto) 0.4, Absolute Neuts (auto) 6.6, Absolute Lymphs (auto) 2.51, Nucleated RBC % 0 03/31/22 06:04: Sodium 136, Potassium 4.2, Chloride 103, Carbon Dioxide 31.0, Anion Gap 2 L, BUN 36 H, Creatinine 0.97, Estim Creat Clear Calc 44.23, Est GFR (MDRD) Af Amer 71, Est GFR (MDRD) Non-Af 59 L, BUN/Creatinine Ratio 37.2 H, Glucose 152 H, Calcium 8.5 Micro: Microbiology 03/20/22 09:15 Swab (Method) Nasal Screen MRSA/MSSA - Final Physical Exam Narrative GENERAL: cooperative HEENT: Atraumatic; EYES; Anicteric, Normal Conjunctiva NECK; supple, normal thyroid, RESPIRATORY: Diminished to auscultation CARDIOVASCULAR: Regular S1 S2, GI: soft, normoactive bowel sounds, : No Renal angle tenderness; EXTREMITIES: trace edema, no clubbing, MUSCULOSKELETAL: Left shoulder immobilizer in surgical dressing NEURO: Awake; no lateralizing signs. SKIN: No Rash PSYCH; Flat affect Assessment & Plan Assessment/Plan (1) Humeral fracture: QUALIFIERS: Encounter type: subsequent encounter Fracture healing: with routine healing Fracture morphology: unspecified fracture morphology Fracture type: closed Humerus Location: proximal Laterality: left Qualified Code(s): S42.202D - Unspecified fracture of upper end of left humerus, subsequent encounter for fracture with routine healing PLAN: Patient is an 81-year-old lady who underwent left reverse total shoulder arthroplasty on 03/28/2022 on account of Left displaced 4 part proximal humerus fracture dislocation by Dr. Orta. The hospitalist service was consulted to assist with management of patient medical comorbidities 1. Status post left reverse total shoulder arthroplasty -on 03/28/2022 on account of Left displaced 4 part proximal humerus fracture dislocation by Dr. Orta. Patient postoperative orders regarding PT OT, pain management and DVT prophylaxis addressed by primary service ? 03/30/2022. Patient complaining of some soreness in the left shoulder. -03/31/2022;Patient seen pain in her left shoulder well controlled. Awaiting tra nsfer to residential facility pending insurance approval 2. Coronary artery disease ? With previous CABG patient is currently on recommended medications including dual platelet therapy with aspirin, beta-blockers nitrate and statin therapy did continue. 3. Chronic heart failure ? Unspecified ejection fraction. Currently not in exacerbation patient is on furosemide did continue 4. Hypertension - Blood pressure controlled, home medications continued with dose adjustment as needed 5. Dyslipidemia -Patient is on statin therapy, continued at home dose 6. Anemia - Secondary to chronic disorder as well as acute blood loss anemia from surgery. Monitoring H&H and transfuse if patient becomes symptomatic or hemoglobin falls below 7 7. DVT prophylaxis ? As per primary service patient was placed on aspirin 81 mg p.o. twice daily 8. Mild hyperkalemia ? Repeat potassium levels ordered and if elevated patient will be administered with Kayexalate ? 03/30/2022; repeat potassium came back elevated at 5.430 g of Kayexalate administered potassium down to 4.4 this a.m. 9. Physical deconditioning - Requested for PT OT eval and criminal justice social worker to assist with discharge planning Charges/Coding Visit Charges Inpatient E&M: 00862 Subs Hosp L2
[2022-03-31] MEDS: Aspirin E.C. 81 MG Tablet PO ×2 (08:42→17:36)
[2022-03-31 09:39] VITALS: BP 122/61; PULSE 89; RESP 18; TEMP 36.5; O2SAT 93
[2022-03-31] MEDS: Isosorbide DN 30 MG Tablet PO ×2 (09:43→21:39)
[2022-03-31] MEDS: Menthol/Lanolin/Calamine/Znox 113 GM Tube 1 APPLIC TOPICAL (09:43)
[2022-03-31] MEDS: Tolterodine Tartrate 2 MG CAP.SA PO (09:43)
[2022-03-31] MEDS: Carvedilol 12.5 MG Tablet PO ×2 (09:43→21:39)
[2022-03-31] MEDS: Nystatin Ointment 1 APPLIC TOPICAL ×2 (09:44→21:41)
[2022-03-31] MEDS: Furosemide 40 MG Tablet PO (09:44)
[2022-03-31] MEDS: Cholecalciferol (VIT D3) 25 MCG TABLET (1,000 UNITS) PO (09:45)
[2022-03-31] MEDS: Senna/Docusate Sodium 1 Tablet 2 TABLET PO (09:45)
--- NOTE | 2022-03-31 13:24 | PN.ORTHO_ITS ---
Subjective Subjective Patient seen and examined. Denies any new complaints. Awaiting pre-CERT for SNF. Denies fevers, chills, nausea vomiting, chest pain or shortness of breath. Objective Data Objective Data Vital Signs: Vital Signs Temp Pulse Resp BP Pulse Ox 97.7 F L 89 18 122/61 H 93 03/31/22 09:39 03/31/22 09:39 03/31/22 09:39 03/31/22 09:39 03/31/22 09:39 Oxygen Flow Rate (L/min) 2 Oxygen Delivery Method Room Air Weight: 255 lb 11.779 oz Body Mass Index (BMI) 40.0 Intake & Output: Intake and Output for Last 24 Hours 03/29/22 03/30/22 03/31/22 23:59 23:59 23:59 Intake Total 1212.5 / 1212.5 Output Total 1375 / 1375 1 / 1 0 / 0 Balance -162.5 / -162.5 -1 / -1 0 / 0 Lab / Micro Data Result Diagrams: 03/31/22 06:04 03/31/22 06:04 Labs: Laboratory Results - last 24 hr 03/31/22 06:04: WBC 11.0, RBC 2.98 L, Hgb 8.5 L, Hct 27.5 L, MCV 92.3, MCH 28.5, MCHC 30.9 L, RDW Std Deviation 51.8 H, RDW Coeff of Estuardo 15.4 H, Plt Count 199, MPV 10.2, Immature Gran % (Auto) 1.600 H, Neut % (Auto) 60.6, Lymph % (Auto) 22.9, [place] % (Auto) 11.8 H, Eos % (Auto) 2.7, Baso % (Auto) 0.4, Absolute Neuts (auto) 6.6, Absolute Lymphs (auto) 2.51, Nucleated RBC % 0 03/31/22 06:04: Sodium 136, Potassium 4.2, Chloride 103, Carbon Dioxide 31.0, Anion Gap 2 L, BUN 36 H, Creatinine 0.97, Estim Creat Clear Calc 44.23, Est GFR (MDRD) Af Amer 71, Est GFR (MDRD) Non-Af 59 L, BUN/Creatinine Ratio 37.2 H, Glucose 152 H, Calcium 8.5 Micro: Microbiology 03/20/22 09:15 Swab (Method) Nasal Screen MRSA/MSSA - Final Physical Exam Narrative General - A&Ox3, NAD. VSS/AF. Left upper Extremity - SILT & 5/5 in radial, ulnar, musculocutaneous, axillary, and median nerve distributions. Radial, ulnar pulses 2+. Compartments soft and compressible. BCR in finger tips. Sling in place, incisional dressing C/D/I. Assessment & Plan Assessment/Plan (1) Humeral fracture: QUALIFIERS: Encounter type: subsequent encounter Humerus Lo cation: proximal Fracture type: closed Fracture morphology: unspecified fracture morphology Laterality: left Fracture healing: with routine healing Qualified Code(s): S42.202D - Unspecified fracture of upper end of left humerus, subsequent encounter for fracture with routine healing PLAN: POD#3 s/p left reverse shoulder arthroplasty for fracture dislocation - Pain control - Medicine following for medical management - PT/OT - DVT PPX -home aspirin, SCDs, early mobilization - Case management - D/C planning. Pending pre-CERT for SNF
[2022-03-31 15:16] VITALS: BP 135/63; PULSE 85; RESP 18; TEMP 36.6; O2SAT 94
[2022-03-31 21:30] VITALS: BP 140/68; PULSE 74; RESP 18; TEMP 36.5; O2SAT 97
[2022-03-31] MEDS: Atorvastatin Calcium 40 MG Tablet PO (21:40)
[2022-04-01 04:30] VITALS: BP 107/57; PULSE 70; RESP 16; TEMP 36.9; O2SAT 92
[2022-04-01] MEDS: Acetaminophen 500 MG Tablet 1000 MG PO ×3 (05:03→21:12)
[2022-04-01 06:04] LABS: Absolute Lymphocyte Count 2.33 X10^3/uL (0.83-4.51); Absolute Neutrophil Count 6.5 X10^3/uL (2.0-7.7); Basophil# 0.07 X10^3/uL; Basophil% 0.6 % (0-1); Eosinophil# 0.46 X10^3/uL; Eosinophils% 4.3 % (0-5); Hematocrit 28.9 % (37-47); Hemoglobin 8.7 g/dL (12.0-15.0); Lymphocyte # 2.33 X10^3/ul (0.83-4.51); Lymphocyte % 21.6 % (19-41); Mean Corp Hgb Conc 30.1 g/dL (32-36); Mean Corpuscular Hgb 27.8 pg (27.0-32.0); Mean Corpuscular Volume 92.3 fL (81-99); Mean Platelet Vol. 10.7 fl (6.2-12.0); Monocyte# 1.16 X10^3/uL; Monocyte% 10.8 % (0-10); NRBC Flagged by Analyzer 0 % (0-5); Neutrophil # 6.51 X10^3/uL (2.7-7.7); Neutrophil % 60.4 % (47-70); Platelet Count 212 K/mm3 (150-450); RBC Distribution Width CV 15.6 % (11.6-14.6); RBC Distribution Width SD 52.3 fl (35.1-43.9); Red Blood Count 3.13 M/mm3 (4.2-5.4); White Blood Count 10.8 K/mm3 (4.4-11.0)
[2022-04-01 06:29] LABS: Anion Gap 5 (5-15); BUN 30 mg/dL (7-18); BUN/Creat Ratio 35.2 RATIO (10-20); Calcium,Total 8.7 mg/dL (8.5-10.1); Chloride 100 mmol/L (98-107); Creatinine, Serum 0.85 mg/dL (0.55-1.02); EST Glomerular Filtration Rate 68 mL/min (>60); Est Glom Filt Rate - Afr Amer 82 mL/min (>60); Estimated Creatinine Clearance 50.48 ml/min; Glucose 138 mg/dL (74-106); Potassium 3.9 mmol/L (3.5-5.1); Sodium Level 137 mmol/L (136-145)
--- NOTE | 2022-04-01 07:09 | PN.HOSP_ITS ---
Subjective Subjective Patient is seen pain is tolerable. Awaiting transfer to retirement facility. Hemoglobin remains low however there is no indication for blood transfusion at this point Objective Data Objective Data Vital Signs: Vital Signs Temp Pulse Resp BP Pulse Ox 98.4 F 70 16 107/57 L 92 04/01/22 04:30 04/01/22 04:30 04/01/22 04:30 04/01/22 04:30 04/01/22 04:30 Oxygen Flow Rate (L/min) 2 Oxygen Delivery Method Room Air Weight: 116 kg Body Mass Index (BMI) 40.0 Intake & Output: Intake and Output for Last 24 Hours 03/30/22 03/31/22 04/01/22 23:59 23:59 23:59 Intake Total 850 / 850 Output Total 1025 / 1025 Balance -1 / -1 -175 / -175 Lab / Micro Data Result Diagrams: 04/01/22 05:43 04/01/22 05:43 Labs: Laboratory Results - last 24 hr 04/01/22 05:43: WBC 10.8, RBC 3.13 L, Hgb 8.7 L, Hct 28.9 L, MCV 92.3, MCH 27.8, MCHC 30.1 L, RDW Std Deviation 52.3 H, RDW Coeff of Estuardo 15.6 H, Plt Count 212, MPV 10.7, Immature Gran % (Auto) 2.300 H, Neut % (Auto) 60.4, Lymph % (Auto) 21.6, [place] % (Auto) 10.8 H, Eos % (Auto) 4.3, Baso % (Auto) 0.6, Absolute Neuts (auto) 6.5, Absolute Lymphs (auto) 2.33, Nucleated RBC % 0 04/01/22 05:43: Sodium 137, Potassium 3.9, Chloride 100, Carbon Dioxide 32.0, Anion Gap 5, BUN 30 H, Creatinine 0.85, Estim Creat Clear Calc 50.48, Est GFR (MDRD) Af Amer 82, Est GFR (MDRD) Non-Af 68, BUN/Creatinine Ratio 35.2 H, Glucose 138 H, Calcium 8.7 Micro: Microbiology 03/20/22 09:15 Swab (Method) Nasal Screen MRSA/MSSA - Final Physical Exam Narrative GENERAL: cooperative HEENT: Atraumatic; EYES; Anicteric, Normal Conjunctiva NECK; supple, normal thyroid, RESPIRATORY: Diminished to auscultation CARDIOVASCULAR: Regular S1 S2, GI: soft, normoactive bowel sounds, : No Renal angle tenderness; EXTREMITIES: trace edema, no clubbing, MUSCULOSKELETAL: Left shoulder immobilizer in surgical dressing NEURO: Awake; no lateralizing signs. SKIN: No Rash PSYCH; Flat affect Assessment & Plan Assessment/Plan (1) Humeral fracture: QUALIFIERS: Encounter type: subsequent encounter Fracture healing: with routine healing Fracture morphology: unspecified fracture morphology Fracture type: closed Humerus Location: proximal Laterality: left Qualified Code(s): S42.D - Unspecified fracture of upper end of left humerus, subsequent encounter for fracture with routine healing PLAN: Patient is an 81-year-old lady who underwent left reverse total shoulder arthroplasty on 03/28/2022 on account of Left displaced 4 part proximal humerus fracture dislocation by Dr. Orta. The hospitalist service was consulted to assist with management of patient medical comorbidities 1. Status post left reverse total shoulder arthroplasty -on 03/28/2022 on account of Left displaced 4 part proximal humerus fracture dislocation by Dr. Orta. Patient postoperative orders regarding PT OT, pain management and DVT prophylaxis addressed by primary service ? 03/30/2022. Patient complaining of some soreness in the left shoulder. -03/31/2022;Patient seen pain in her left shoulder well controlled. Awaiting transfer to retirement facility pending insurance approval 04/01 2022; patient seen pain is tolerable awaiting transfer to to a retirement facility 2. Coronary artery disease ? With previous CABG patient is currently on recommended medications including dual platelet therapy with aspirin, beta-blockers nitrate and statin therapy did continue. 3. Chronic heart failure ? Unspecified ejection fraction. Currently not in exacerbation patient is on furosemide did continue 4. Hypertension - Blood pressure controlled, home medications continued with dose adjustment as needed 5. Dyslipidemia -Patient is on statin therapy, continued at home dose 6. Anemia - Secondary to chronic disorder as well as acute blood loss anemia from surgery. Monitoring H&H and transfuse if patient becomes symptomatic or hemoglobin falls below 7 ? 04/01/2022; hemoglobin remains low at 8.7 however there is no indication for blood transfusion at this point 7. DVT prophylaxis ? As per primary service patient was placed on aspirin 81 mg p.o. twice daily 8. Mild hyperkalemia ? Repeat potassium levels ordered and if elevated patient will be administered with Kayexalate ? 03/30/2022; repeat potassium came back elevated at 5.430 g of Kayexalate administered potassium down to 4.4 this a.m. 9. Physical deconditioning - Requested for PT OT eval and clinical social work aide to assist with discharge planning Charges/Coding Visit Charges Inpatient E&M: 62882 Subs Hosp L2
[2022-04-01 07:10] VITALS: O2SAT 92
[2022-04-01] MEDS: Aspirin E.C. 81 MG Tablet PO ×2 (08:24→16:39)
[2022-04-01 09:37] VITALS: BP 121/62; PULSE 83; RESP 18; TEMP 36.6; O2SAT 96
[2022-04-01] MEDS: Nystatin Ointment 1 APPLIC TOPICAL ×2 (09:47→21:11)
[2022-04-01] MEDS: Menthol/Lanolin/Calamine/Znox 113 GM Tube 1 APPLIC TOPICAL (09:47)
[2022-04-01] MEDS: Furosemide 40 MG Tablet PO (09:48)
[2022-04-01] MEDS: Carvedilol 12.5 MG Tablet PO ×2 (09:48→21:11)
[2022-04-01] MEDS: Senna/Docusate Sodium 1 Tablet 2 TABLET PO ×2 (09:48→21:11)
[2022-04-01] MEDS: Tolterodine Tartrate 2 MG CAP.SA PO (09:48)
[2022-04-01] MEDS: Isosorbide DN 30 MG Tablet PO ×2 (09:49→21:11)
[2022-04-01] MEDS: Cholecalciferol (VIT D3) 25 MCG TABLET (1,000 UNITS) PO (09:49)
--- NOTE | 2022-04-01 11:03 | PN.ORTHO_ITS ---
Subjective Subjective Patient seen and examined. Denies any new complaints. Denies fevers, chills, nausea vomiting, chest pain or shortness of breath. Awaiting pre-CERT for SNF. Objective Data Objective Data Vital Signs: Vital Signs Temp Pulse Resp BP Pulse Ox 97.9 F 83 18 121/62 H 96 04/01/22 09:37 04/01/22 09:37 04/01/22 09:37 04/01/22 09:37 04/01/22 09:37 Oxygen Flow Rate (L/min) 2 Oxygen Delivery Method Room Air Weight: 255 lb 11.779 oz Body Mass Index (BMI) 40.0 Intake & Output: Intake and Output for Last 24 Hours 03/30/22 03/31/22 04/01/22 23:59 23:59 23:59 Intake Total 850 / 850 Output Total 1025 / 1025 Balance -1 / -1 -175 / -175 Lab / Micro Data Result Diagrams: 04/01/22 05:43 04/01/22 05:43 Labs: Laboratory Results - last 24 hr 04/01/22 05:43: WBC 10.8, RBC 3.13 L, Hgb 8.7 L, Hct 28.9 L, MCV 92.3, MCH 27.8, MCHC 30.1 L, RDW Std Deviation 52.3 H, RDW Coeff of Estuardo 15.6 H, Plt Count 212, MPV 10.7, Immature Gran % (Auto) 2.300 H, Neut % (Auto) 60.4, Lymph % (Auto) 21.6, [place] % (Auto) 10.8 H, Eos % (Auto) 4.3, Baso % (Auto) 0.6, Absolute Neuts (auto) 6.5, Absolute Lymphs (auto) 2.33, Nucleated RBC % 0 04/01/22 05:43: Sodium 137, Potassium 3.9, Chloride 100, Carbon Dioxide 32.0, Anion Gap 5, BUN 30 H, Creatinine 0.85, Estim Creat Clear Calc 50.48, Est GFR (MDRD) Af Amer 82, Est GFR (MDRD) Non-Af 68, BUN/Creatinine Ratio 35.2 H, Glucose 138 H, Calcium 8.7 Micro: Microbiology 03/20/22 09:15 Swab (Method) Nasal Screen MRSA/MSSA - Final Physical Exam Narrative General - A&Ox3, NAD. VSS/AF. Left upper Extremity - SILT & 5/5 in radial, ulnar, musculocutaneous, axillary, and median nerve distributions. Radial, ulnar pulses 2+. Compartments soft and compressible. BCR in finger tips. Sling in place, incisional dressing C/D/I. Calves soft and nontender. Assessment & Plan Assessment/Plan (1) Humeral fracture: QUALIFIERS: Encounter type: subsequent encounter Fracture healing: with routine healing Fracture morphology: unspecified fracture morphology Fracture type: closed Humerus Location: proximal Laterality: left Qualified Code(s): S42.202D - Unspecified fracture of upper end of left humerus, subsequent encounter for fracture with routine healing PLAN: POD#4 s/p left reverse shoulder arthroplasty for fracture dislocation - Pain control - Medicine following for medical management - PT/OT - DVT PPX -home aspirin, SCDs, early mobilization - Case management - D/C planning. Stable for discharge, pending pre-CERT for SNF
[2022-04-01 13:04] VITALS: BP 115/42; PULSE 80; RESP 16; TEMP 36.6; O2SAT 96
[2022-04-01 16:53] VITALS: BP 124/48; PULSE 68; RESP 18; TEMP 36.8; O2SAT 94
[2022-04-01] MEDS: Atorvastatin Calcium 40 MG Tablet PO (21:11)
[2022-04-01 21:21] VITALS: BP 128/58; PULSE 68; RESP 18; TEMP 36.7; O2SAT 97
[2022-04-02] MEDS: Acetaminophen 500 MG Tablet 1000 MG PO ×2 (05:19→14:16)
[2022-04-02 05:23] VITALS: BP 125/76; PULSE 68; RESP 18; TEMP 36.6; O2SAT 92
[2022-04-02 06:39] VITALS: O2SAT 92
[2022-04-02] MEDS: Aspirin E.C. 81 MG Tablet PO (08:22)
[2022-04-02] MEDS: Senna/Docusate Sodium 1 Tablet 2 TABLET PO (08:22)
[2022-04-02] MEDS: Isosorbide DN 30 MG Tablet PO (08:22)
[2022-04-02] MEDS: Cholecalciferol (VIT D3) 25 MCG TABLET (1,000 UNITS) PO (08:22)
[2022-04-02] MEDS: Carvedilol 12.5 MG Tablet PO (08:22)
[2022-04-02] MEDS: Tolterodine Tartrate 2 MG CAP.SA PO (08:22)
[2022-04-02] MEDS: Menthol/Lanolin/Calamine/Znox 113 GM Tube 1 APPLIC TOPICAL (08:23)
[2022-04-02] MEDS: Furosemide 40 MG Tablet PO (08:23)
[2022-04-02] MEDS: Nystatin Ointment 1 APPLIC TOPICAL (08:23)
[2022-04-02 08:32] VITALS: BP 136/62; PULSE 67; RESP 16; TEMP 36.6; O2SAT 94
[2022-04-02 11:15] VITALS: BP 148/72; PULSE 66; RESP 16; TEMP 36.4; O2SAT 94
--- NOTE | 2022-04-02 12:58 | DS.PCM_ITS ---
Providers Date of Admission: 03/29/22 Primary Care Physician: Dr. Iban Starr, Consultations 03/28/22 18:12 Consult: Hospitalist Routine Consulting Provider: Ignacio France Reason for Consult: post-op medical management EMERGENT Consult: No MD Notified: Yes Date Notified: 03/28/22 Time Notified: 19:48 Method of Notification: Verbal Reason For Visit: LT REVERSE TOTAL SHOULDER Diagnosis Discharge Diagnosis (1) Humeral fracture: Status: Acute Code(s): S42.309A - Unspecified fracture of shaft of humerus, unspecified arm, initial encounter for closed fracture Qualifiers: Encounter type: subsequent encounter Fracture healing: with routine healing Fracture morphology: unspecified fracture morphology Fracture type: closed Humerus Location: proximal Laterality: left Qualified Code(s): S42.202D - Unspecified fracture of upper end of left humerus, subsequent encount er for fracture with routine healing Plan: POD#5 s/p left reverse shoulder arthroplasty for fracture dislocation - Pain control - Medicine following for medical management - PT/OT - DVT PPX -home aspirin, SCDs, early mobilization - Case management - D/C planning. Stable for discharge, Medications at Discharge Home Medications Aspirin, Baby 81 mg PO DAILY 07/11/20 carvedilol 12.5 mg PO BID 07/11/20 isosorbide dinitrate 30 mg PO BID 07/11/20 rosuvastatin 20 mg PO QHS 07/11/20 nystatin 1 applic TOPICAL BID 07/14/20 furosemide 40 mg PO DAILY #30 tab 08/11/20 acetaminophen 1,000 mg PO QAM 03/19/22 acetaminophen 1,000 mg PO QHS 03/19/22 cholecalciferol (vitamin D3) [Vitamin D3] 25 mcg PO DAILY 03/19/22 menthol-zinc oxide 1 applic TOPICAL DAILY 03/19/22 multivitamin 1 tab PO DAILY 03/19/22 trospium 20 mg PO BID 03/27/22 aspirin 81 mg PO BIDCM 26 Days #52 tab 03/30/22 oxycodone 10 mg PO Q6H PRN 7 Days #42 tab 03/30/22 Hospital Course Summary of Care Provided Minutes Spent on Discharge: 20 Hospital Course: Patient underwent uncomplicated left reverse shoulder arthroplasty 03/28/22. She did well in the postoperative period. There was some acute blood loss anemia noted as expected postsurgery, did not require blood transfusion. She was hospitalized until 04/02/22 avoiding precertification for senior care facility placement. She worked well with PT/OT. The hospitalist service followed the patient the postoperative period for medical management. No medical or surgical Cases were encountered. She was able to be safely discharged to senior care facility on postoperative day #5. Physical Exam Narrative General - A&Ox3, NAD. VSS/AF. Left upper Extremity - SILT & 5/5 in radial, ulnar, musculocutaneous, axillary, and median nerve distributions. Radial, ulnar pulses 2+. Compartments soft and compressible. BCR in finger tips. Sling in place, incisional dressing C/D/I. Calves soft and nontender. Weight / BMI Weight Weight: 255 lb 11.779 oz Body Mass Index (BMI) 40.0 ABG / Lab / Microbiology Data Result Diagrams: 04/01/22 05:43 04/01/22 05:43 Microbiology: Microbiology 03/20/22 09:15 Swab (Method) Nasal Screen MRSA/MSSA - Final Meaningful Use Info Meaningful Use Diagnoses (Choose all that apply): None applicable Discharge Plan Admission Admit Date/Time: 03/29/22 10:46 Attending Provider: Catrachita Mesa Primary Care Provider: Iban Starr Consulting Providers: Ignacio France ; Clifton Orta ; Rashard Hall ; Gina Yun Instructions Additional Instructions / Restrictions: Follow preprinted instructions from your surgeons office. Discharge Orders/Prescriptions Prescriptions: New aspirin 81 mg Tablet,Delayed Release (Dr/Ec) 81 mg PO BIDCM 26 Days Qty: 52 RF: 0 oxycodone 5 mg tablet 10 mg PO Q6H PRN (Reason: pain) 7 Days Qty: 42 RF: 0 Continued carvedilol 12.5 MG tablet 12.5 mg PO BID RF: 0 isosorbide dinitrate 30 MG tablet 30 mg PO BID RF: 0 rosuvastatin 20 MG tablet 20 mg PO QHS RF: 0 nystatin 1 APPLIC ointment 1 applic topical BID RF: 0 furosemide 40 MG tablet 40 mg PO DAILY Qty: 30 RF: 0 multivitamin Tablet 1 tab PO DAILY RF: 0 cholecalciferol (vitamin D3) [Vitamin D3] 25 mcg (1,000 unit) Capsule 25 mcg PO DAILY RF: 0 acetaminophen 500 MG tablet 1,000 mg PO QAM RF: 0 acetaminophen 500 MG tablet 1,000 mg PO QHS RF: 0 menthol-zinc oxide 1 APPLIC ointment 1 applic TOPICAL DAILY RF: 0 trospium 20 mg Tablet 20 mg PO BID RF: 0 Held Aspirin, Baby 81 mg PO DAILY RF: 0 Hold Instructions: Resume on 04/25/22. Referrals / Follow Up: Clifton Orta DO [STAFF PHYSICIAN] - Within 2 Weeks Iban Starr DO [Primary Care Provider] - Disposition Disposition (needs filled in before D/C Order can be placed): [facility]
--- NOTE | 2022-04-02 14:47 | CASEMGMT ---
Social Work Return call from [facility] at [facility] and precert has been obtain. Physician updated and plan to discharge today. SW met with pt and she is agreeable to discharge to [place] today. 7000 convalescent stay completed in [place]. Orders faxed to [facility]. Transportation arranged with [facility] for 5:30 pear picker via [employer]. Pt made aware and agreeable. Dgt updated and Nursing updated. Plan: [facility] Skilled level of care under convalescent stay. KATE Sosa
== END 2022-04-02 17:40 | disposition skilled nursing facility (03) | DRG 483 ==
LOC: ACINP 18:21 → MS3 18:22
PROVIDERS: Anesthesiology; Internal Medicine; Admitting Provider Student in an Organized Health Care Education/Training Program; PCP Preventive Medicine Occupational Medicine; Referring Provider Student in an Organized Health Care Education/Training Program; Visit Provider Internal Medicine
PROC: 0RRK00Z Replacement of Left Shoulder Joint with Reverse Ball and Socket Synthetic Substitute, Open Approach (ICD-10-PCS; CPT 23472; principal; 2022-03-28 13:45)
DX: S42.292D Other displaced fracture of upper end of left humerus, subsequent encounter for fracture with routine healing (principal); D62 Acute posthemorrhagic anemia; I50.22 Chronic systolic (congestive) heart failure; Z68.41 Body mass index [BMI] 40.0-44.9, adult; S42.232A 3-part fracture of surgical neck of left humerus, initial encounter for closed fracture; I11.0 Hypertensive heart disease with heart failure; E66.01 Morbid (severe) obesity due to excess calories; D63.8 Anemia in other chronic diseases classified elsewhere; E87.5 Hyperkalemia; E78.5 Hyperlipidemia, unspecified; I25.10 Atherosclerotic heart disease of native coronary artery without angina pectoris; S43.015A Anterior dislocation of left humerus, initial encounter; Z87.891 Personal history of nicotine dependence; Z79.82 Long term (current) use of aspirin; Z79.899 Other long term (current) drug therapy
CPT/HCPCS: 36415; 71046; 73030; 76000; 80048; 83036; 83735; 84132; 85025; 85027; 87077; 87081; 87426; 88305; 88311; 97110; 97116; 97162; 97166; 97530; 97535; 99251; C1776; J7120; G0463; J2405; J3475

== ENCOUNTER 2022-09-06 13:56 | Observation (INO) | payer MEDICARE, SELFPAY ==
--- NOTE | 2022-09-05 09:46 | RAD_ITS ---
STUDY: X-RAY CHEST REASON FOR EXAM: Female, 81 years old. PREOP TECHNIQUE: XR Chest 2 Views COMPARISON: 03/20/2022 FINDINGS: There is atherosclerotic calcification of the aortic arch with tortuosity. There are diffuse degenerative changes of the visualized thoracic spine. There is degenerative osteoarthritis of the bilateral shoulders. Healed right proximal humeral fracture. Total left shoulder arthroplasty. There are multiple median sternotomy wires. Normal size heart. Normal mediastinum and maurilio. Normal visualized pulmonary arteries. There is no demonstrated abnormality of the visualized soft tissue structures of the upper abdomen. RAD/Chest PA and Lateral IMPRESSION: There are no acute findings. Electronically Signed: Christopher De MD at 16:54 EDT ,
[2022-09-05 10:01] LABS: Erythrocyte Sedimentation Rate 31 mm/hr (0-30)
[2022-09-05 10:04] LABS: Absolute Lymphocyte Count 2.43 X10^3/uL (0.83-4.51); Basophil# 0.07 X10^3/uL; Basophil% 0.7 % (0-1); Eosinophil# 0.47 X10^3/uL; Eosinophils% 4.7 % (0-5); Hematocrit 36.2 % (37-47); Hemoglobin 10.5 g/dL (12.0-15.0); Lymphocyte # 2.43 X10^3/ul (0.83-4.51); Lymphocyte % 24.5 % (19-41); Mean Corpuscular Hgb 26.4 pg (27.0-32.0); Mean Platelet Vol. 10.7 fl (6.2-12.0); Monocyte# 0.89 X10^3/uL; NRBC Flagged by Analyzer 0 % (0-5); Neutrophil # 5.99 X10^3/uL (2.7-7.7); Neutrophil % 60.3 % (47-70); Platelet Count 332 K/mm3 (150-450); RBC Distribution Width CV 17.8 % (11.6-14.6); RBC Distribution Width SD 59.6 fl (35.1-43.9); Red Blood Count 3.98 M/mm3 (4.2-5.4); White Blood Count 9.9 K/mm3 (4.4-11.0)
[2022-09-05 10:33] LABS: Anion Gap 3 (5-15); BUN 30 mg/dL (7-18); CRP 2.96 mg/L (0.0-3.0); Chloride 106 mmol/L (98-107); Creatinine, Serum 1.11 mg/dL (0.55-1.02); EST Glomerular Filtration Rate 50 mL/min (>60); Est Glom Filt Rate - Afr Amer 61 mL/min (>60); Glucose 135 mg/dL (74-106); Potassium 4.2 mmol/L (3.5-5.1); Sodium Level 143 mmol/L (136-145)
[2022-09-06] VITALS (13 sets, daily range): BP systolic 114–139; BP diastolic 56–78; PULSE 50–84; RESP 16–20; TEMP 35.8–36.8; O2SAT 85–96; BMI 39.6
[2022-09-06] MEDS: Lactated Ringers 1,000 ML 15 ML IV (10:18)
[2022-09-06] MEDS: Cefazolin 2 GM in 0.9% Normal Saline 100 ML IV (11:11)
--- NOTE | 2022-09-06 12:28 | OP.PCM_ITS ---
Report of Operation Date of Procedure: 09/06/22 Description of Surgical Findings:: Preoperative diagnosis: Superficial infected wound dehiscence left reverse shoulder arthroplasty Postoperative diagnosis: Superficial infected wound dehiscence left reverse shoulder arthroplasty Procedure: Irrigation and debridement of skin and subcutaneous tissue 10 cm x 2 cm x 1 cm left shoulder with application of incisional wound VAC Primary Surgeon: Clifton Orta DO [employer] Consultant: Leora Mary PA-C Complications: None apparent Packing/drains: None Implants: None IV fluids: 600 cc LR Estimated blood loss: 50 cc Intraoperative findings: Infected superficial wound with gross purulence. No tunneling or penetration deep to the fascia. Preoperative indications: This is an 81-year-old female well-known to myself who sustained a left shoulder four-part fracture dislocation requiring a left reverse shoulder arthroplasty performed 03/28/2022 by myself. She had a dislocation postoperatively requiring a revision of the humeral stem performed at [facility] 04/20/2022. She did well in this postoperative period. She has regained significant independence back and has been ambulating using the left upper extremity on a walker. X-rays have been stable throughout the postoperative course. There is a central portion of the wound noted early in the postoperative period following the revision surgery and had superficial blistering. There is minimal erythema around this. She was started on a short course of doxycycline that did seem to improve the erythema but the blistering remained. We continue to watch the blister was free of any drainage. Patient was seen in the office 08/31/2022 with new complaints of drainage from the inferior portion of her prior incision. Gross purulence was noted as well as mild erythema at the base of the incision. The proximal portion of the incision near the glenohumeral joint did not have any erythema. Preoperative labs revealed normal WBC, CRP, and ESR. Due to the gross purulence and nonhealing wound, I did recommend treating this aggressively with an incision and drainage. Also, I was unable to appropriately probe the wound to determine any deep tunneling or sinus tract formation due to patient discomfort in the office. Patient expressed understanding and agreed to proceed with surgery. The risk, benefits, alternatives to the procedure reviewed with the patient at length and she agreed to proceed. We did discuss possible polyethylene exchange if a tract to the joint was identified. Description of procedure: Patient identified the preoperative holding area by name, medical record number, and date of . The operative extremity was marked. All questions were answered to the patient's satisfaction. At time of procedure, patient brought the operative suite and positioned supine cerebrum table with a beachchair attachment. General anesthesia was induced and endotracheal tube placed. Patient was then positioned in the beachchair position with all bony prominences well-padded. We prepped and draped the left upper extremity in normal, sterile orthopedic fashion using a Betadine prep. We then performed a timeout with all parties in attendance in agreement the side, site, operation be performed. No concerns were voiced and would like to proceed with surgery. Antibiotics were held until initial cultures were obtained. At the inferior portion of the wound, purulent fluid was noted. I placed aerobic and anaerobic culture swabs through the wound which tunneled into the superficial blister previously noted. Cultures were obtained. We then started antibiotics with 2 g Ancef IV administered by anesthesia staff. I then ellipticized the inferior portion of the wound in total, approximately 10 cm. Approximately 3 mm of wound edge were excised to healthy appearing skin. The wound base was then closely examined. I probed with my Metzenbaum scissors with great scrutiny to determine any tunneling or sinus tract towards the glenohumeral joint. No such tract was identified. I then debrided the skin and subcutaneous tissue with a rongeur and curette. The wound was then copiously irrigated with 3 L normal saline solution with cystoscopy tubing. We then remove the outer layer of drapes and changed our gloves as well as discarded contaminated instruments. I irrigated the wound again with 3 additional liters of normal saline solution. I then closed the deeper fatty layer with interrupted simple buried 0 PDS suture. Dermis was reapproximated buried 3-0 Monocryl suture. Skin was finally reapproximated with interrupted horizontal mattress 3-0 nylon suture. I anesthetized the skin edges with 20 cc quarter percent plain bupivacaine. I then placed a Prevena incisional wound VAC overlying the incision to encourage perfusion to the wound edges and assist with wound healing. Patient was then positioned back in supine position and safely extubated in the operative suite. A sling was applied to the patient's left upper extremity for comfort only. She was transferred to her gurney and subsequently to PACU in stable condition. Postoperative plan: Patient will be placed in observation overnight with cultures pending. Patient will be weightbearing as tolerated left upper extremity. Maintain incisional wound VAC until follow-up in 1 week. IV ceftriaxone and vancomycin started. Infectious disease will be consulted for recommendations. Aspirin 81 mg twice daily starting this evening for DVT prophylaxis.
[2022-09-06 13:02] LABS: Hematocrit 32.2 % (37-47); Hemoglobin 9.8 g/dL (12.0-15.0); Mean Corp Hgb Conc 30.4 g/dL (32-36); Mean Corpuscular Hgb 27.5 pg (27.0-32.0); Mean Corpuscular Volume 90.2 fL (81-99); Mean Platelet Vol. 10.4 fl (6.2-12.0); Platelet Count 244 K/mm3 (150-450); RBC Distribution Width CV 17.6 % (11.6-14.6); RBC Distribution Width SD 58.8 fl (35.1-43.9); Red Blood Count 3.57 M/mm3 (4.2-5.4); White Blood Count 7.8 K/mm3 (4.4-11.0)
[2022-09-06] MEDS: Acetaminophen 500 MG Tablet 1000 MG PO ×2 (14:23→22:05)
--- NOTE | 2022-09-06 14:37 | PCM.RX.CS ---
Consult Pharmacy has been consulted to manage selected antiobiotic: Vancomycin Type of Consult: New start Suspected Infection: Other Labs: Sodium 143 mmol/L (136-145) 09/05/22 09:38 Potassium 4.2 mmol/L (3.5-5.1) 09/05/22 09:38 Chloride 106 mmol/L (98-107) 09/05/22 09:38 Carbon Dioxide 34.0 mmol/L (21.0-32.0) H 09/05/22 09:38 Anion Gap 3 (5-15) L 09/05/22 09:38 BUN 30 mg/dL (7-18) H 09/05/22 09:38 Creatinine 1.11 mg/dL (0.55-1.02) H 09/05/22 09:38 Est GFR (MDRD) Af Amer 61 mL/min (>60) 09/05/22 09:38 Est GFR (MDRD) Non-Af 50 mL/min (>60) L 09/05/22 09:38 BUN/Creatinine Ratio 27.0 RATIO (10-20) H 09/05/22 09:38 Glucose 135 mg/dL (74-106) H 09/05/22 09:38 Microbiology: Microbiology 09/06/22 12:09 Wound - Shoulder Gram Stain - Final 09/06/22 12:09 Incision/Surgical Site Gram Stain - Final Goal Trough: 10-15 mcg/mL Pharmacy Plan for Drug Dosing: NEW START IV VANCOMYCIN Consulting Physician: Dr. Orta Indication: Post-op abx Goal Trough: 10-15 SrCr: 1.11 CrCl: 52mL/min (using AdjBW) Comments: 1750mg IV x1 ordered and administered 09/06/22 @1422 Vancomycin Dose: 1000mg IV Q12hr to start 09/07/22 @0200 Pending Level: 09/08/22 @0130, prior to 4th total dose per protocol Pharmacy Service will continue to monitor and adjust dosing as required.
[2022-09-06] MEDS: Juven (unflavored) Packet 1 PACKET PO (17:07)
[2022-09-06] MEDS: Aspirin 81 MG TAB.CHEW PO (17:07)
[2022-09-06] MEDS: Isosorbide DN 30 MG Tablet PO (22:05)
[2022-09-06] MEDS: Carvedilol 12.5 MG Tablet PO (22:05)
[2022-09-06] MEDS: Atorvastatin Calcium 40 MG Tablet PO (22:05)
[2022-09-07 02:30] VITALS: BP 113/58; PULSE 83; RESP 18; TEMP 36.6; O2SAT 94
[2022-09-07] MEDS: Vancomycin IV 1,000 MG/200 ML BAG 200 MG IV ×2 (02:35→14:07)
[2022-09-07 02:36] VITALS: BP 113/58; PULSE 83; RESP 18; TEMP 36.6; O2SAT 94
[2022-09-07] MEDS: Acetaminophen 500 MG Tablet 1000 MG PO ×2 (05:56→14:06)
[2022-09-07 06:58] LABS: Anion Gap 5 (5-15); BUN 32 mg/dL (7-18); BUN/Creat Ratio 30.2 RATIO (10-20); Calcium,Total 8.5 mg/dL (8.5-10.1); Chloride 106 mmol/L (98-107); Creatinine, Serum 1.06 mg/dL (0.55-1.02); EST Glomerular Filtration Rate 53 mL/min (>60); Est Glom Filt Rate - Afr Amer 64 mL/min (>60); Estimated Creatinine Clearance 40.48 ml/min; Glucose 176 mg/dL (74-106); Potassium 5.1 mmol/L (3.5-5.1); Sodium Level 140 mmol/L (136-145)
--- NOTE | 2022-09-07 07:10 | PCM.PN.ORT ---
Subjective Subjective Patient seen and examined. She denies any new complaints. Denies fevers, chills, nausea vomiting, chest pain or shortness of breath. Tolerating oral intake without difficulty. Denies significant pain. Objective Data Objective Data Vital Signs: Vital Signs Temp Pulse Resp BP Pulse Ox O2 Del Method O2 Flow Rate 98 F 83 18 113/58 L 94 Nasal Cannula 2 09/07/22 02:36 09/07/22 02:36 09/07/22 02:36 09/07/22 02:36 09/07/22 02:36 09/07/22 02:36 09/07/22 02:36 Oxygen Flow Rate (L/min) 2 Oxygen Delivery Method Nasal Cannula Weight: 252 lb 13.923 oz Body Mass Index (BMI) 39.6 Intake & Output: Intake and Output for Last 24 Hours 09/05/22 09/06/22 09/07/22 23:59 23:59 23:59 Intake Total 1595 / 1595 200 / 200 Output Total 600 / 600 Balance 1595 / 1595 -400 / -400 Lab / Micro Data Result Diagrams: 09/06/22 12:43 09/07/22 05:54 Labs: Laboratory Results - last 24 hr 09/06/22 12:43: WBC 7.8, RBC 3.57 L, Hgb 9.8 L, Hct 32.2 L, MCV 90.2, MCH 27.5, MCHC 30.4 L, RDW Std Deviation 58.8 H, RDW Coeff of Estuardo 17.6 H, Plt Count 244, MPV 10.4 09/07/22 05:54: Sodium 140, Potassium 5.1, Chloride 106, Carbon Dioxide 29.0, Anion Gap 5, BUN 32 H, Creatinine 1.06 H, Estim Creat Clear Calc 40.48, Est GFR (MDRD) Af Amer 64, Est GFR (MDRD) Non-Af 53 L, BUN/Creatinine Ratio 30.2 H, Glucose 176 H, Calcium 8.5 Micro: Microbiology 09/06/22 12:09 Wound - Shoulder Gram Stain - Final 09/06/22 12:09 Incision/Surgical Site Gram Stain - Final Physical Exam Narrative General - A&Ox3, NAD. VSS/AF. Left upper Extremity - SILT & 5/5 in radial, ulnar, musculocutaneous, axillary, and median nerve distributions. Radial, ulnar pulses 2+. Compartments soft and compressible. BCR in finger tips. Incisional wound VAC in place, good suction seal. Assessment & Plan Assessment/Plan (1) Wound of left shoulder: PLAN: POD#1 s/p left reverse shoulder arthroplasty superficial wound irrigation and debridement with application of incisional wound VAC - Pain control - Cultures pending. Plan to hold cultures for 21 days due to risk of C acnes infection. Infectious disease consulted for recommendations. - weightbearing and activity as tolerated left upper extremity - DVT PPX -aspirin 81 mg twice daily, early mobilization, SCDs - Case management - D/C planning. Patient stable for discharge once antibiotic recommendations finalized. (2) Presence of shoulder joint prosthesis: PLAN: See above plan
[2022-09-07 07:12] VITALS: O2SAT 90
[2022-09-07 09:15] VITALS: BP 106/51; PULSE 73; RESP 16; TEMP 36.5; O2SAT 98
[2022-09-07] MEDS: Aspirin 81 MG TAB.CHEW PO (09:21)
[2022-09-07] MEDS: Tolterodine Tartrate 2 MG CAP.SA PO (09:21)
[2022-09-07] MEDS: Isosorbide DN 30 MG Tablet PO (09:22)
[2022-09-07] MEDS: Juven (unflavored) Packet 1 PACKET PO (09:22)
[2022-09-07] MEDS: Carvedilol 12.5 MG Tablet PO (09:22)
[2022-09-07] MEDS: FLU VACC QS2022-23(6MOS UP)/PF 60 MCG/0.5 ML SYRINGE IM (09:29)
[2022-09-07] MEDS: Furosemide 40 MG Tablet PO (09:31)
[2022-09-07] MEDS: 0.9% Saline Lock 10 ML Syringe IV (09:37)
--- NOTE | 2022-09-07 09:50 | CASEMGMT ---
Addendum entered by eGri Middleton 09/07/22 17:29: 1300: Per Dr Sánchez, pt can d/c home on PO atb's. Original Note: RN CM HIP HOP DANCE INSTRUCTOR CM to room to meet with patient for initial transition planning/care coordination assessment. EDY ALDANA introduced self and role at [facility]. Pt voices understanding and consents to assessment at this time. Pt sitting up in chair in no distress at this time. Pt is A/O at this time and answers all questions appropriately. Care providers, pharmacy, and demographics verified/updated at this time. PCP: Iabn Starr Specialists: Dr Orta-ortho, SUPPORT SPECIALIST Beverly Goode-cardiology in [place] Preferred Pharmacy: [facility] [place] Insurance: [employer] Prescription Benefit: yes Living Will/HPOA: Has both LW and HPOA, who is her daughter, Natalie LNOK: Dtr, Natalie. Sister, Hilda Living Arrangements: Dtr, Natalie, lives w/pt in 2-story home. [employer] w/ramp entrance. Pt was independent until fall and injury in January. Since then, pt's daughter assists her when home and friend, Dominique, comes to stay w/her when dtr is away @ work. Pt states she can do most ADL's independently and they assist as needed. They do most IADL's. Transportation: daughter does most of the driving. Pt's sister helps occasionally DME: States has the following DME: shower chair, BSC, cane, rails/grab bars, walker, W/C, hiram-walker, profile grinder, sling. Pt sleeps in recliner @ [facility]. Pt states no need for further DME at this time. HHC/SNF: Hx of [facility]CU in 2019 and [facility] in 2021. No hx of HHC. Pt wishes to return home and states has no concerns with going home at time of discharge. Awaiting ID c/s. Pt declines need for HHC, unless IV atb's are needed. CM to follow for any discharge planning/needs. Pt voices no further concerns/needs at this time. Advised pt to ask for CM if any further questions/concerns/needs arise. Voices understanding. PLAN: Home w/daughter and friend support and discharge plans in place. Cristopher MOSHER RN, CM
--- NOTE | 2022-09-07 12:56 | DS.PCM_ITS ---
Providers Date of Admission: 09/06/22 Primary Care Physician: Dr. Iban Starr DO Consultations 09/06/22 12:26 Consult: Infectious Disease Routine Consulting Provider: Iban Sánchez Reason for Consult: Superficial Left Total Shoulder Infection, s/p I&D EMERGENT Consult: No MD Notified: Yes Date Notified: 09/06/22 Time Notified: 13:54 Method of Notification: Text Reason For Visit: LT IRRIGATION& DEBRIDEMENT OF TOTAL SHOULDER Diagnosis Discharge Diagnosis (1) Wound of left shoulder: Status: Acute Code(s): S41.002A - Unspecified open wound of left shoulder, initial encounter Plan: POD#1 s/p left reverse shoulder arthroplasty superficial wound irrigation and debridement with application of incisional wound VAC - Pain control -Cultures growing gram-negative rods. Infectious disease recommending discharge on oral Omnicef - weightbearing and activity as tolerated left upper extremity - DVT PPX -aspirin 81 mg twice daily, early mobilization, SCDs -Discharge to home with incisional wound VAC and oral Omnicef (2) Presence of shoulder joint prosthesis: Status: Acute Code(s): Z96.619 - Presence of unspecified artificial shoulder joint Plan: See above plan Medications at Discharge Home Medications Aspirin, Baby 81 mg PO DAILY heart 07/11/20 carvedilol 12.5 mg tablet 12.5 mg PO BID BP 07/11/20 isosorbide dinitrate 30 mg tablet 30 mg PO BID BP 07/11/20 rosuvastatin 20 mg tablet 20 mg PO QHS cholesterol 07/11/20 nystatin 100,000 unit/gram topical ointment 1 applic topical BID Check with primary doctor 07/14/20 furosemide 40 mg tablet 40 mg PO DAILY Check with primary doctor #30 tabs 08/11/20 acetaminophen 500 mg tablet 1,000 mg PO QAM PAIN 03/19/22 acetaminophen 500 mg tablet 1,000 mg PO QHS PAIN 03/19/22 multivitamin 1 tab PO DAILY SUPPLEMENT 03/19/22 trospium 20 mg tablet 20 mg PO BID BLADDER 03/27/22 cefdinir 300 mg capsule 300 mg PO BID 2 weeks #28 caps 09/07/22 Hospital Course Summary of Care Provided Minutes Spent on Discharge: 20 Hospital Course: Patient underwent irrigation and debridement of superficial wound infection in the setting of a left reverse shoulder arthroplasty. There was no tracking found deep towards the joint intraoperatively. Wound was excised and primarily closed. An incisional wound VAC was placed. Cultures were obtained and demonstrated gram-negative rods. Infectious disease was consulted and recommended discharge home on oral Omnicef. She was able be safely discharged home on postoperative day #1 in stable condition. Physical Exam Narrative General - A&Ox3, NAD. VSS/AF. Left upper Extremity - SILT & 5/5 in radial, ulnar, musculocutaneous, axillary, and median nerve distributions. Radial, ulnar pulses 2+. Compartments soft and compressible. BCR in finger tips. Incisional wound VAC in place, good suction seal. Weight / BMI Weight Weight: 252 lb 13.923 oz Body Mass Index (BMI) 39.6 ABG / Lab / Microbiology Data Result Diagrams: 09/06/22 12:43 09/07/22 05:54 Laboratory: Laboratory Results - last 24 hr 09/06/22 12:43: WBC 7.8, RBC 3.57 L, Hgb 9.8 L, Hct 32.2 L, MCV 90.2, MCH 27.5, MCHC 30.4 L, RDW Std Deviation 58.8 H, RDW Coeff of Estuardo 17.6 H, Plt Count 244, MPV 10.4 09/07/22 05:54: Sodium 140, Potassium 5.1, Chloride 106, Carbon Dioxide 29.0, Anion Gap 5, BUN 32 H, Creatinine 1.06 H, Estim Creat Clear Calc 40.48, Est GFR (MDRD) Af Amer 64, Est GFR (MDRD) Non-Af 53 L, BUN/Creatinine Ratio 30.2 H, Gluc ose 176 H, Calcium 8.5 Microbiology: Microbiology 09/06/22 12:09 Incision/Surgical Site Gram Stain - Final 09/06/22 12:09 Incision/Surgical Site Tissue Culture - Preliminary Gram negative lowell 09/06/22 12:09 Wound - Shoulder Gram Stain - Final 09/06/22 12:09 Wound - Shoulder Wound Culture - Preliminary Gram negative lowell Meaningful Use Info Meaningful Use Diagnoses (Choose all that apply): None applicable Discharge Plan Admission Admit Date/Time: 09/06/22 13:56 Primary Reason for Your Visit: Left shoulder surgery Attending Provider: Clifton Orta Primary Care Provider: Iban Starr Consulting Providers: Iban Sánchez Instructions Additional Instructions / Restrictions: Maintain incisional wound VAC until follow-up in [address] orta. No showers until f/u Taking antibiotics as prescribed Range of motion as tolerated, weightbearing as tolerated left upper extremity Discharge Orders/Prescriptions Prescriptions: New cefdinir 300 mg capsule 300 mg PO BID 14 Days Qty: 28 0RF Continued Aspirin, Baby 81 mg PO DAILY Hold Instructions: Resume on 04/25/22. Rx Instructions: heart health carvedilol 12.5 MG tablet 12.5 mg PO BID Rx Instructions: blood pressure/heart isosorbide dinitrate 30 MG tablet 30 mg PO BID Rx Instructions: heart rosuvastatin 20 MG tablet 20 mg PO QHS Rx Instructions: cholesterol nystatin 1 APPLIC ointment 1 applic topical BID Protocol: *Topical Application Instructions APPLICATION INSTRUCTIONS: Groin Rx Instructions: groin furosemide 40 MG tablet 40 mg PO DAILY Qty: 30 0RF Rx Instructions: diuretic multivitamin Tablet 1 tab PO DAILY acetaminophen 500 MG tablet 1,000 mg PO QAM acetaminophen 500 MG tablet 1,000 mg PO QHS trospium 20 mg Tablet 20 mg PO BID Referrals / Follow Up: Iban Starr DO [Primary Care Provider] - Disposition Disposition (needs filled in before D/C Order can be placed): Home, Self Care
--- NOTE | 2022-09-07 13:41 | CON.PCM.ID_ITS ---
Assessment & Plan Assessment/Plan (1) Presence of shoulder joint prosthesis: (2) Skin abscess: PLAN: Taken to OR 09/06/[address] Orta for superficial abscess at L shoulder. Had prior replacement 03/2022. Surg cx x2 with GNR. Feeling well, no fever, no pain in shoulder joint. Ok for home with po cefdinir, will follow final cx res ults. Will follow, thank you, d/w Dr. Orta HPI Consult Data Date of Consult: 09/07/22 HPI Narrative Reason for Consultation: skin infection HPI Narrative: CONRADO PARDO, is a 81 F with L shoulder replacement 03/2022 at [facility]. Over past week, developed new wound dehiscence with some bloody/purulent drainage. No inciting event, no fever, no pain in shoulder. Minimal redness around wound. Saw Dr. Orta, taken to OR 09/06 for I&D. No deeper involvement seen. On vanc/ceftriaxone. Feeling well. Full ROS performed and neg except as noted above. [facility] Medical History Arthritis Cardiology follow-up encounter CHF (congestive heart failure) Easy bruising Former smoker High cholesterol History of echocardiogram History of edema History of heart attack History of stress test History of ulceration Hypertension Myocardial infarct Post-menopausal Walker as ambulation aid Wears dentures Wears glasses Home Medications Aspirin, Baby 81 mg PO DAILY heart 07/11/20 [History Last Taken 07/11/20 08:00] carvedilol 12.5 mg tablet 12.5 mg PO BID BP 07/11/20 [History Last Taken 03/28/22 08:00] isosorbide dinitrate 30 mg tablet 30 mg PO BID BP 07/11/20 [History Last Taken 03/28/22 08:00] rosuvastatin 20 mg tablet 20 mg PO QHS cholesterol 07/11/20 [History Last Taken 07/10/20 23:00] nystatin 100,000 unit/gram topical ointment 1 applic topical BID Check with primary doctor 07/14/20 [History Last Taken Unknown] furosemide 40 mg tablet 40 mg PO DAILY Check with primary doctor #30 tabs 08/11/20 [Rx Last Taken Unknown] acetaminophen 500 mg tablet 1,000 mg PO QAM PAIN 03/19/22 [History Last Taken Unknown] acetaminophen 500 mg tablet 1,000 mg PO QHS PAIN 03/19/22 [History Last Taken Unknown] multivitamin 1 tab PO DAILY SUPPLEMENT 03/19/22 [History Last Taken Unknown] trospium 20 mg tablet 20 mg PO BID BLADDER 03/27/22 [History Last Taken Unknown] cefdinir 300 mg capsule 300 mg PO BID 2 weeks #28 caps 09/07/22 [Rx Last Taken Unknown] Allergy/AdvReac Type Severity Reaction Status Date / Time No Known Allergies Allergy Verified 09/06/22 09:42 Surgical History History of open heart surgery Hx of shoulder replacement Social History Smoking Status: Former smoker Physical Exam Const alert, oriented x3 and no apparent distress General Appearance: cooperative HEENT normocephalic and head/scalp atraumatic Eyes PERRL and EOMs intact bilaterally Neck supple and No nodes Resp normal air movement and clear to auscultation bilaterally Cardio regular rate and regular rhythm GI soft to palpation, non-tender and non-distended Extremity General Extremity: Negative for edema Skin Skin Narrative: L shoulder bandaged Neuro CN's II-XII intact bilaterally Lab / Micro Data Attestation: I reviewed the patient's lab results. Result Diagrams: 09/06/22 12:43 09/07/22 05:54 Labs: Laboratory Results - last 24 hr 09/07/22 05:54: Sodium 140, Potassium 5.1, Chloride 106, Carbon Dioxide 29.0, Anion Gap 5, BUN 32 H, Creatinine 1.06 H, Estim Creat Clear Calc 40.48, Est GFR (MDRD) Af Amer 64, Est GFR (MDRD) Non-Af 53 L, BUN/Creatinine Ratio 30.2 H, Glucose 176 H, Calcium 8.5 Micro: Microbiology 09/06/22 12:09 Incision/Surgical Site Gram Stain - Final 09/06/22 12:09 Incision/Surgical Site Tissue Culture - Preliminary Gram negative lowell 09/06/22 12:09 Wound - Shoulder Gram Stain - Final 09/06/22 12:09 Wound - Shoulder Wound Culture - Preliminary Gram negative lowell
[2022-09-07 14:10] VITALS: BP 109/52; PULSE 82; RESP 16; TEMP 36.6; O2SAT 94
== END 2022-09-07 15:42 | disposition home or self-care (01) ==
LOC: SDC 14:00 → MS3 14:00
PROVIDERS: Admitting Provider Student in an Organized Health Care Education/Training Program; PCP Preventive Medicine Occupational Medicine; Referring Provider Student in an Organized Health Care Education/Training Program; Visit Provider Student in an Organized Health Care Education/Training Program
PROC: (CPT 23472; principal; 2022-09-06 10:30)
DX: T84.59XA Infection and inflammatory reaction due to other internal joint prosthesis, initial encounter (principal); I11.0 Hypertensive heart disease with heart failure; I50.9 Heart failure, unspecified; E78.00 Pure hypercholesterolemia, unspecified; Z79.82 Long term (current) use of aspirin; Z87.891 Personal history of nicotine dependence; I25.2 Old myocardial infarction; I25.10 Atherosclerotic heart disease of native coronary artery without angina pectoris; Z79.899 Other long term (current) drug therapy; Y79.2 Prosthetic and other implants, materials and accessory orthopedic devices associated with adverse incidents; T81.31XA Disruption of external operation (surgical) wound, not elsewhere classified, initial encounter; Z23 Encounter for immunization
CPT/HCPCS: 11042; 00400; 36415; 71046; 80048; 85025; 85027; 85652; 86140; 87070; 87075; 87077; 87186; 87205; 96365; 96366; 96367; 97802; 99218; 99251; G0008; J7040; J7120; 90686; A4216; G0378; G0463; J0696; J2405